=== PATIENT | male | born 1960 | race Caucasian/White ===

== ENCOUNTER 2016-09-18 08:45 | Outpatient (CLI) | payer MEDICARE | END 2016-09-18 08:46 | disposition home or self-care (01) | DX: E11.621 Type 2 diabetes mellitus with foot ulcer (principal); I10 Essential (primary) hypertension; M86.9 Osteomyelitis, unspecified ==

== ENCOUNTER 2016-11-24 18:40 | Inpatient (IN) | payer MEDICARE ==
[2016-11-24] MEDS ORDERED: ONDANSETRON 4 MG/2 ML VIAL IVP STA (19:06)
[2016-11-24] MEDS ORDERED: SODIUM CHLORIDE 0.9% 1,000 ML IV ONE ×2 (19:06)
[2016-11-24] MEDS ORDERED: ONDANSETRON 4 MG/2 ML VIAL ONE (19:23)
[2016-11-24] MEDS ORDERED: PIPERACILLIN/TAZOBACTAM 4.5 GM in SODIUM CHLORIDE 0.9% MINIBAG 100 ML IV STA (20:12)
[2016-11-24] MEDS ORDERED: VANCOMYCIN INJ 2 GM in SODIUM CHLORIDE 0.9% 500 ML IV STA (20:12)
[2016-11-24] MEDS ORDERED: ACETAMINOPHEN 325 MG TABLET PO STA (20:21)
[2016-11-24] MEDS ORDERED: ACETAMINOPHEN 325 MG TABLET PO ONE (20:26)
[2016-11-24] MEDS ORDERED: oxyCODONE 5 MG TABLET PO PRN ×2 (20:30)
[2016-11-24] MEDS ORDERED: ACETAMINOPHEN 325 MG TABLET PO PRN (20:30)
[2016-11-24] MEDS ORDERED: SODIUM CHLORIDE FLUSH 0.9% 10 ML SYRINGE IVP PRN (20:30)
[2016-11-24] MEDS ORDERED: ONDANSETRON 4 MG/2 ML VIAL IVP PRN (20:30)
[2016-11-24] MEDS ORDERED: PROCHLORPERAZINE 10 MG/2 ML VIAL IVP PRN (20:30)
[2016-11-24] MEDS ORDERED: VANCOMYCIN 1 GM VIAL ONE (20:56)
[2016-11-24] MEDS ORDERED: SODIUM CHLORIDE 0.9% 1,000 ML IV SCH (21:00)
[2016-11-24] MEDS: SODIUM CHLORIDE FLUSH 0.9% 10 ML SYRINGE IVP SCH (21:57)
[2016-11-24] MEDS: INSULIN GLARGINE 300 UNIT/3 ML PEN SUBQ SCH (22:19)
[2016-11-24] MEDS: INSULIN ASPART 300 UNIT/3 ML PEN SUBQ SCH (22:20)
[2016-11-24] MEDS: NS W/20 MEQ KCL 1,000 ML IV SCH (23:54)
[2016-11-25] MEDS ORDERED: PIPERACILLIN/TAZOBACTAM 3.375 GM in SODIUM CHLORIDE 0.9% MINIBAG 100 ML IV SCH (03:00)
[2016-11-25] MEDS: PANTOPRAZOLE 40 MG TABLET PO SCH (06:06)
[2016-11-25] MEDS: SODIUM CHLORIDE FLUSH 0.9% 10 ML SYRINGE IVP SCH ×3 (06:07→21:28)
[2016-11-25] MEDS: PIPERACILLIN/TAZOBACTAM 3.375 GM in SODIUM CHLORIDE 0.9% MINIBAG 100 ML IV SCH ×3 (08:18→20:48)
[2016-11-25] MEDS: INSULIN ASPART 300 UNIT/3 ML PEN SUBQ SCH ×7 (08:18→21:24)
[2016-11-25] MEDS: INSULIN GLARGINE 300 UNIT/3 ML PEN SUBQ SCH ×2 (08:21→21:24)
[2016-11-25] MEDS ORDERED: VANCOMYCIN PER PHARMACY 1 GM in SODIUM CHLORIDE 0.9% 250 ML IV SCH (09:00)
[2016-11-25] MEDS: NS W/20 MEQ KCL 1,000 ML IV SCH ×3 (09:21→23:32)
[2016-11-25] MEDS: VANCOMYCIN INJ 1 GM, VANCOMYCIN INJ 250 MG in SODIUM CHLORIDE 0.9% 250 ML IV SCH ×2 (09:21→21:25)
[2016-11-25] MEDS: ENOXAPARIN 40 MG/0.4 ML SYRINGE SUBQ SCH (09:21)
[2016-11-25] MEDS: ASPIRIN EC 81 MG TABLET PO SCH (09:22)
[2016-11-25] MEDS: POLYETHYLENE GLYCOL 3350 17 GM PACKET PO SCH (09:22)
[2016-11-25] MEDS ORDERED: GADOBUTROL 7.5 MMOL/7.5 ML VIAL IVP ONE (17:47)
[2016-11-26] MEDS ORDERED: BENZOCAINE/MENTHOL LOZENGE MM PRN (00:29)
[2016-11-26] MEDS: PIPERACILLIN/TAZOBACTAM 3.375 GM in SODIUM CHLORIDE 0.9% MINIBAG 100 ML IV SCH ×4 (01:06→19:15)
[2016-11-26] MEDS: SODIUM CHLORIDE FLUSH 0.9% 10 ML SYRINGE IVP SCH ×3 (06:49→20:23)
[2016-11-26] MEDS: PANTOPRAZOLE 40 MG TABLET PO SCH (06:53)
[2016-11-26] MEDS: NS W/20 MEQ KCL 1,000 ML IV SCH (06:53)
[2016-11-26] MEDS: ASPIRIN EC 81 MG TABLET PO SCH (08:11)
[2016-11-26] MEDS: POLYETHYLENE GLYCOL 3350 17 GM PACKET PO SCH (08:11)
[2016-11-26] MEDS: ENOXAPARIN 40 MG/0.4 ML SYRINGE SUBQ SCH (08:11)
[2016-11-26] MEDS: INSULIN GLARGINE 300 UNIT/3 ML PEN SUBQ SCH ×2 (08:12→20:32)
[2016-11-26] MEDS: INSULIN ASPART 300 UNIT/3 ML PEN SUBQ SCH ×7 (08:13→20:32)
[2016-11-26] MEDS: VANCOMYCIN INJ 1 GM, VANCOMYCIN INJ 250 MG in SODIUM CHLORIDE 0.9% 250 ML IV SCH ×2 (10:31→20:23)
[2016-11-27] MEDS: PIPERACILLIN/TAZOBACTAM 3.375 GM in SODIUM CHLORIDE 0.9% MINIBAG 100 ML IV SCH ×2 (02:15→08:33)
[2016-11-27] MEDS: SODIUM CHLORIDE FLUSH 0.9% 10 ML SYRINGE IVP SCH (06:03)
[2016-11-27] MEDS: PANTOPRAZOLE 40 MG TABLET PO SCH (06:03)
[2016-11-27] MEDS: INSULIN ASPART 300 UNIT/3 ML PEN SUBQ SCH ×2 (07:29→08:25)
[2016-11-27] MEDS: INSULIN GLARGINE 300 UNIT/3 ML PEN SUBQ SCH (08:28)
[2016-11-27] MEDS: POLYETHYLENE GLYCOL 3350 17 GM PACKET PO SCH (08:39)
[2016-11-27] MEDS: ENOXAPARIN 40 MG/0.4 ML SYRINGE SUBQ SCH (08:44)
[2016-11-27] MEDS: ASPIRIN EC 81 MG TABLET PO SCH (08:44)
[2016-11-27] MEDS: VANCOMYCIN INJ 1 GM, VANCOMYCIN INJ 250 MG in SODIUM CHLORIDE 0.9% 250 ML IV SCH (09:30)
== END 2016-11-27 10:44 | disposition home or self-care (01) | DRG 603 ==
DX: L03.115 Cellulitis of right lower limb (principal); N17.9 Acute kidney failure, unspecified; L97.419 Non-pressure chronic ulcer of right heel and midfoot with unspecified severity; E87.1 Hypo-osmolality and hyponatremia; S92.351A Displaced fracture of fifth metatarsal bone, right foot, initial encounter for closed fracture; X58.XXXA Exposure to other specified factors, initial encounter; E11.618 Type 2 diabetes mellitus with other diabetic arthropathy; E11.65 Type 2 diabetes mellitus with hyperglycemia; E11.42 Type 2 diabetes mellitus with diabetic polyneuropathy; E11.621 Type 2 diabetes mellitus with foot ulcer; L98.493 Non-pressure chronic ulcer of skin of other sites with necrosis of muscle; E86.1 Hypovolemia; I10 Essential (primary) hypertension; E78.5 Hyperlipidemia, unspecified; Z79.4 Long term (current) use of insulin; Z79.82 Long term (current) use of aspirin; Z79.2 Long term (current) use of antibiotics; Z89.422 Acquired absence of other left toe(s)

== ENCOUNTER 2016-11-27 17:19 | Emergency (ER) | payer MEDICARE ==
[2016-11-27] MEDS ORDERED: VANCOMYCIN INJ 1.5 GM in SODIUM CHLORIDE 0.9% 500 ML IV STA (17:54)
== END 2016-11-27 20:33 | disposition home or self-care (01) ==
DX: E11.621 Type 2 diabetes mellitus with foot ulcer (principal); L97.419 Non-pressure chronic ulcer of right heel and midfoot with unspecified severity; Z79.4 Long term (current) use of insulin; I10 Essential (primary) hypertension; Z79.82 Long term (current) use of aspirin
CPT/HCPCS: 80048; 83605; 85025; 87040; 87070; 87205; 96365; 96366; 99284; J3370

== ENCOUNTER 2016-12-18 07:45 | Outpatient (CLI) | payer MEDICARE | END 2016-12-18 07:46 | disposition home or self-care (01) | DX: N18.3 Chronic kidney disease, stage 3 (moderate) (principal) ==

== ENCOUNTER 2017-01-16 07:52 | Outpatient (CLI) | payer MEDICARE | END 2017-01-16 07:53 | DX: E78.9 Disorder of lipoprotein metabolism, unspecified (principal) ==

== ENCOUNTER 2017-05-08 17:30 | Outpatient (CLI) | payer MEDICARE ==
[2017-05-08 13:34] LABS: ALBUMIN/GLOBULIN RATIO 1.4 (1.0-2.2); BILIRUBIN,TOTAL 0.4 mg/dL (0.2-1.0); CALCIUM 8.7 mg/dL (8.5-10.3); CREATININE 1.2 mg/dL (0.6-1.2); POTASSIUM 4.6 mmol/L (3.5-5.0); TOTAL PROTEIN 7.5 g/dL (6.7-8.2)
[2017-05-08 14:08] LABS: HEMOGLOBIN A1C 1.65 g/dL
== END 2017-05-08 17:31 | disposition home or self-care (01) ==
LOC: LAB.WCP 17:30
PROVIDERS: ATTEND Family Medicine
DX: E78.5 Hyperlipidemia, unspecified (principal); N18.3 Chronic kidney disease, stage 3 (moderate)
CPT/HCPCS: 36415; 80053; 83036

== ENCOUNTER 2017-07-30 08:00 | Outpatient (CLI) | payer MEDICARE ==
[2017-07-30 13:28] LABS: ALBUMIN/GLOBULIN RATIO 1.2 (1.0-2.2); BILIRUBIN,TOTAL 0.4 mg/dL (0.2-1.0); CALCIUM 9.5 mg/dL (8.5-10.3); CREATININE 1.2 mg/dL (0.6-1.2); POTASSIUM 3.9 mmol/L (3.5-5.0); TOTAL PROTEIN 7.8 g/dL (6.7-8.2)
[2017-07-30 14:10] LABS: HEMOGLOBIN A1C 1.89 g/dL
== END 2017-07-30 08:01 | disposition home or self-care (01) ==
LOC: LAB.WCP 08:00
PROVIDERS: ATTEND Family Medicine
DX: N18.3 Chronic kidney disease, stage 3 (moderate) (principal); E11.621 Type 2 diabetes mellitus with foot ulcer
CPT/HCPCS: 36415; 80053; 83036

== ENCOUNTER 2017-12-29 15:21 | Outpatient (CLI) | payer MEDICARE ==
--- NOTE | 2017-12-31 15:45 | Ultrasound Report ---
RIGHT LEG ARTERIAL DUPLEX: 12/29/2017 CLINICAL INDICATION: Diabetes, right foot ulcer. TECHNIQUE: Real-time sonographic vascular imaging was performed by the data entry analyst through the right lower extremity utilizing both color-flow and Doppler spectral analysis. Multiple quality assurance representative static images were saved for review. RIGHT SIDE SITE [facility] WAVEFORM STEN GOVERNMENT AFFAIRS FELLOW 138 biphasic [] PSFA 111 triphasic [] MSFA 116 triphasic [] DSFA 94 triphasic [] PFA 62 biphasic [] POP 102 triphasic [] MARGARITA 96 monophasic [] SERVICE RIG OPERATOR 129 triphasic [] PER 85 triphasic [] DPA 99 monophasic [] FINDINGS: Waveforms in the right leg are variable. There is no evidence of a focal velocity increase to suggest a hemodynamically significant arterial stenosis. IMPRESSION: NO EVIDENCE OF A FOCAL HEMODYNAMICALLY SIGNIFICANT ARTERIAL STENOSIS IN THE RIGHT LEG. TD: 12/30/2017 09:44 DOMINIQUE
== END 2017-12-29 15:22 | disposition home or self-care (01) ==
LOC: DI 15:21
PROVIDERS: ATTEND Orthopaedic Surgery
DX: E11.621 Type 2 diabetes mellitus with foot ulcer (principal)

== ENCOUNTER 2018-06-30 09:50 | Day surgery (SDC) | payer MEDICARE ==
[~2018-06-30 09:50] MED LIST: BUPIVACAINE 0.25%-EPI 1:200000 PF 30 ML VIAL ONE
[2018-06-30] MEDS ORDERED: ceFAZolin 2 GM/50 ML 2 GM/50 ML BAG IV ONE (09:56)
[2018-06-30] MEDS ORDERED: LACTATED RINGERS 1,000 ML IV ONE (10:27)
[2018-06-30] MEDS ORDERED: INSULIN REGULAR HUMAN 100 UNIT/1 ML 10 ML MDV ONE (10:42)
--- NOTE | 2018-06-30 10:44 | ANESTHESIA ---
Pre-Anesthesia VS, & Labs - Diagnosis Right Foot Diabetic foot ulcer - Procedure Incision and debridement right diabetic foot ulcer Vital Signs: Temp Pulse Resp BP Pulse Ox 36 C L 87 16 151/90 H 97 06/30/18 10:00 06/30/18 10:00 06/30/18 10:00 06/30/18 10:00 06/30/18 10:00 Height 6 ft 1 in Weight (kg) 87.7 kg Body Mass Index 25.7 - NPO >8 hours - Lab Results Current Lab Results: Laboratory Tests 06/30/18 10:17: POC Whole Bld Glucose 341 H Lab results reviewed: Yes Home Medications and Allergies Aspirin [Ecotrin] 81 mg PO DAILY 01/05/15 Insulin Lispro [Humalog] 20 unit SQ TIDWM MDD 30 units per injection 01/05/15 Empagliflozin [Jardiance] 12.5 mg PO DAILY 08/26/16 Insulin Glargine [Lantus] 70 units SUBQ BID 11/24/16 Atorvastatin [Lipitor] 10 mg PO DAILY 02/03/17 Allergies/Adverse Reactions: Allergies Allergy/AdvReac Type Severity Reaction Status Date / Time No Known Drug Allergies Allergy Verified 06/29/18 13:00 Anes History & Medical History - Anesthetic History Anesthesia Complications: reports: No previous complications Family history of Anesthesia Complications: Denies Family history of Malignant Hyperthermia: Denies - Medical History Cardiovascular: reports: Hypertension, High cholesterol Pulmonary: reports: None Gastrointestinal: reports: None Urinary: reports: Renal insuffiency Neuro: reports: Peripheral neuropathy Musculoskeletal: reports: None Endocrine/Autoimmune: reports: Type 2 diabetes (For 30 years. Blood sugar this am 341. Treated with 10 units regular insulin SQ.) Blood Disorders: reports: None Skin: reports: None Smoking Status: Former smoker (Quit 15 years ago. 1pk/day for 25yrs) Psychosocial: reports: Alcohol (Quit 10 years ago.) - Surgical History Eyes Ears Nose Throat (EENT): Cataracts, Detached retina repair Orthopedic: Amputation Exam General: Alert, Oriented x3, Cooperative, No acute distress Dental: Dentures full Upper Mouth Openin Fingerbreadth Neck Mobility: Normal Mallampati classification: I Thyromental Distance: 4-6 cm Respiratory: Lungs clear, Normal breath sounds, No respiratory distress, No accessory muscle use Cardiovascular: Regular rate, Normal S1, Normal S2, No murmurs Mental/Cognitive Status: Alert/Oriented X3, Normal for patient Cognitive Status: Within normal limits Plan Anesthesia Type: General, MAC (Mac vs General. Patient reports he has no feeling in right foot.) Consent for Procedure(s) Verified and Reviewed: Yes Code Status: Attempt Resuscitation ASA classification: 3-Severe systemic disease Is this case an emergency?: No
[2018-06-30] MEDS ORDERED: PROPOFOL 200 MG/20 ML VIAL IVP ONE (12:06)
[2018-06-30] MEDS ORDERED: ONDANSETRON 4 MG/2 ML VIAL IVP ONE (12:06)
[2018-06-30] MEDS ORDERED: LIDOCAINE-MPF 2% 5 ML VIAL IM ONE (12:06)
[2018-06-30] MEDS ORDERED: BUPIVACAINE 0.25%-EPI 1:200000 PF 30 ML VIAL SUBQ ONE (12:08)
[2018-06-30 13:43] VITALS: BP 159/87
--- NOTE | 2018-07-01 10:50 | OPERATIVE REPORT ---
DATE OF SERVICE: 06/30/2018 Physician: Antonio Souza MD PREOPERATIVE DIAGNOSES: Chronic diabetic foot ulcer, right foot. OPERATIVE PROCEDURE: Debridement of right foot diabetic ulcer with right fifth metatarsal base excis ion and primary wound closure. SURGEON: Antonio Souza MD ANESTHESIA: General. INDICATIONS FOR SURGERY: Sky is a 58-year-old male diabetic with a greater than 1-year history o f ulceration at the base of his right 5th metatarsal in an area where he has prominence of the bone a nd direct pressure under the tissues. In spite of aggressive wound care this has not advanced toward s healing, but also has not become grossly infected or invasive or cellulitic. The recommendation no w is for decompression of this area and in an attempt to heal the debrided wound. DESCRIPTION OF OPERATIVE PROCEDURE: The patient was taken to the operating room. He was given a gen eral anesthetic. A tourniquet was placed on his thigh and his foot and leg were sterilely prepped an d draped in standard fashion. Tourniquet was inflated to 300 mmHg. Surgical timeout was held. The patient's wound was debrided around its margins and the base was carefully debrided sharply, extendin g down to and reaching the base of the fifth metatarsal. There was no evidence of bone involvement o f infection or loss of bone and in fact the bone was extremely hard as the patient had been weightbea ring on this area. The thorough debridement was extended with longitudinal incisions to create a fla p from the dorsal lateral aspect of the foot that advanced to the plantar aspect and would close the wound in the end. The metatarsal base was exposed and excised, utilizing a small oscillating saw, a rongeur, and osteotomes and the cuboid which was left behind was carefully debrided of any prominence on its lateral aspect, so there would not be a new transfer lesion overlying the cuboid. The depth of the incision was completely healthy, clean, viable tissue and at the end the tourniquet was deflat ed and there was bleeding of tissue. The wound was irrigated thoroughly. The proximal flap was adva nced with deep retention of 2-0 nylon sutures placed along the incision to close this wound without a ny excessive tension. Additional 3-0 nylon sutures were placed in between the larger retention sutur es. A silver containing dressing was applied to the wound followed by a well-padded posterior leg sp lint. The patient was taken to recovery room in stable condition. ESTIMATED BLOOD LOSS: Minimal. COMPLICATIONS: None. COUNTS: Sponge and needle counts correct. TD: 06/30/2018 14:40
== END 2018-06-30 09:51 | disposition home or self-care (01) ==
LOC: SDS 09:50
PROVIDERS: ATTEND Orthopaedic Surgery
PROC: 0QBN0ZZ Excision of Right Metatarsal, Open Approach (ICD-10-PCS; principal; 2018-06-30 11:00)
DX: L89.894 Pressure ulcer of other site, stage 4 (principal); E11.42 Type 2 diabetes mellitus with diabetic polyneuropathy; I10 Essential (primary) hypertension; Z87.891 Personal history of nicotine dependence; Z89.432 Acquired absence of left foot; Z79.4 Long term (current) use of insulin; Z79.899 Other long term (current) drug therapy
CPT/HCPCS: 28140; 87070; 87205; J0690; J1815; J7120

== ENCOUNTER 2018-07-06 09:05 | Inpatient (IN) | payer MEDICARE ==
[2018-07-06] MEDS ORDERED: SODIUM CHLORIDE FLUSH 0.9% 10 ML SYRINGE ONE (10:22)
[2018-07-06] MEDS ORDERED: HYDROmorphone 0.5 MG/0.5 ML SYRINGE IVP PRN (10:57)
[2018-07-06] MEDS ORDERED: ZOLPIDEM 5 MG TABLET PO PRN (10:57)
[2018-07-06] MEDS ORDERED: IBUPROFEN 600 MG TABLET PO PRN (10:57)
[2018-07-06] MEDS ORDERED: PROCHLORPERAZINE 10 MG/2 ML VIAL IVP PRN (10:57)
[2018-07-06 12:00] LABS: BASOPHILS # (AUTO) 0.1 10^3/uL (0.0-0.1); BASOPHILS % (AUTO) 1.2 %; HGB - HEMOGLOBIN 14.1 g/dL (14.0-18.0); LYMPHOCYTES # (AUTO) 0.1 10^3/uL (1.5-3.5); LYMPHOCYTES % (AUTO) 0.8 %; MEAN CORPUSCULAR HEMOGLOBIN 28.8 pg (27.0-31.0); MEAN CORPUSCULAR HGB CONC 34.2 g/dL (32.0-36.0); MEAN CORPUSCULAR VOLUME 84.2 fL (80.0-94.0); MEAN PLATELET VOLUME 6.9 fL (7.4-11.4); MONOCYTES # (AUTO) 0.4 10^3/uL (0.0-1.0); MONOCYTES % (AUTO) 3.6 %; NEUTROPHILS # (AUTO) 9.4 10^3/uL (1.5-6.6); NEUTROPHILS % (AUTO) 94.4 %; PLT - PLATELET COUNT 248 10^3/uL (130-450); RED BLOOD COUNT 4.88 10^6/uL (4.70-6.10); RED CELL DISTRIBUTION WIDTH 14.2 % (12.0-15.0)
[2018-07-06 12:07] LABS: INR 1.4 (0.8-1.2); PT - PROTHROMBIN TIME 15.2 secs (9.9-12.6)
[2018-07-06 12:14] LABS: ALBUMIN 3.4 g/dL (3.2-5.5); ALBUMIN/GLOBULIN RATIO 0.8 (1.0-2.2); BILIRUBIN,TOTAL 1.6 mg/dL (0.2-1.0); CALCIUM 8.7 mg/dL (8.5-10.3); CRP HIGH SENSITIVITY 307.7 mg/L; MAGNESIUM 1.9 mg/dL (1.7-2.8); TOTAL PROTEIN 7.7 g/dL (6.7-8.2)
[2018-07-06 12:27] LABS: HB2 TOTAL 15.3 g/dL; HEMOGLOBIN A1C 1.97 g/dL; HEMOGLOBIN A1C % 13.9 % (4.6-6.2)
[2018-07-06] MEDS: INSULIN ASPART 300 UNIT/3 ML PEN SUBQ SCH ×3 (12:39→20:45)
[2018-07-06] MEDS: ACETAMINOPHEN 325 MG TABLET PO PRN (12:43)
[2018-07-06 12:44] LABS: VBG PH 7.303 (7.31-7.41); VBG PO2 51.7 mmHg (25-47); VBG TOTAL CO2 17.5 mmol/L (24-29)
[2018-07-06 12:45] LABS: VBG BASE EXCESS -8.8 mmol/L (-2 - +2)
[2018-07-06 13:24] LABS: BILIRUBIN,URINE NEGATIVE (NEGATIVE); GLUCOSE, URINE (UA) >=1000 mg/dL (NEGATIVE); KETONES,URINE (UA) 40 mg/dL (NEGATIVE); LEUKOCYTE ESTERASE, URINE NEGATIVE (NEGATIVE); NITRITE,URINE NEGATIVE (NEGATIVE); OCCULT BLOOD,URINE SMALL (NEGATIVE); PH,URINE 5.5 PH (5.0-7.5); PROTEIN,URINE 30 mg/dL (NEGATIVE); UROBILINOGEN,URINE 0.2 (NORMAL) E.U./dL (NORMAL)
[2018-07-06 13:27] LABS: CLARITY,URINE CLEAR (CLEAR)
[2018-07-06 13:52] LABS: RBC,URINE 0-5 /HPF (0-5)
[2018-07-06 13:53] LABS: BACTERIA,URINE Rare /HPF (None Seen); SQUAMOUS EPITHELIAL CELL,UR RARE Squamous (<= Few)
--- NOTE | 2018-07-06 14:06 | XRAY Report ---
Reason: Tachy Procedure Date: 07/06/2018 Accession Number: [id number] / [id number] Procedure: XR - Chest 1 View X-Ray CPT Code: 70889 FULL RESULT: EXAM: CHEST RADIOGRAPHY EXAM DATE: 07/06/2018 12:19 PM. CLINICAL HISTORY: Tachycardia COMPARISON: None. TECHNIQUE: 1 view. FINDINGS: Lungs/Pleura: No focal opacities evident. No pleural effusion. No pneumothorax. Mediastinum: Within exam limitations, the cardiomediastinal contour is normal. Other: None. IMPRESSION: Negative single view chest. RADIA
--- NOTE | 2018-07-06 14:17 | XRAY Report ---
Reason: foot diabetic ulcer Procedure Date: 07/06/2018 Accession Number: [id number] / [id number] Procedure: XR - Foot 2 View RT CPT Code: FULL RESULT: EXAM: RIGHT FOOT RADIOGRAPHY EXAM DATE: 07/06/2018 12:21 PM. CLINICAL HISTORY: Foot diabetic ulcer. Follow-up surgery COMPARISON: 06/15/2018.. TECHNIQUE: 2 views. FINDINGS: Detail obscured by splint material. Bones: Interval resection of the proximal right fifth metatarsal. Periosteal reaction/new bone formation along the proximal aspect of the fourth and fifth metatarsals as before. Joints: Scattered degenerative changes stable Soft Tissues: Subcutaneous air consistent with recent surgery. IMPRESSION: New postsurgical changes right fifth metatarsal base. Otherwise stable compared with 06/15/2018. Detail obscured by splint material. RADIA
[2018-07-06] MEDS: SODIUM CHLORIDE 0.9% 1,000 ML IV SCH ×2 (14:31→21:12)
[2018-07-06] MEDS: INSULIN REGULAR HUMAN 100 UNIT in SODIUM CHLORIDE 0.9% 100ML 99 ML IV SCH (14:31)
[2018-07-06 15:05] LABS: CALCIUM 8.4 mg/dL (8.5-10.3); CREATININE 1.8 mg/dL (0.6-1.2)
[2018-07-06 15:50] LABS: KETONES, SERUM (ACETEST) SMALL (NEGATIVE)
[2018-07-06 15:53] LABS: BUN - BLOOD UREA NITROGEN 33 mg/dL (6-20); CALCIUM 8.4 mg/dL (8.5-10.3); CARBON DIOXIDE - CO2 19 mmol/L (21-32); CHLORIDE 91 mmol/L (101-111); CREATININE 1.9 mg/dL (0.6-1.2); GFR - MDRD 36 (>89); GLUCOSE 485 mg/dL (70-100); SODIUM 125 mmol/L (135-145)
[2018-07-06 18:05] LABS: VBG PH 7.433 (7.31-7.41); VBG PO2 78.7 mmHg (25-47); VBG TOTAL CO2 21.2 mmol/L (24-29)
[2018-07-06 18:11] LABS: BUN - BLOOD UREA NITROGEN 33 mg/dL (6-20); CALCIUM 8.5 mg/dL (8.5-10.3); CARBON DIOXIDE - CO2 23 mmol/L (21-32); CHLORIDE 95 mmol/L (101-111); CREATININE 1.7 mg/dL (0.6-1.2); GFR - MDRD 41 (>89); GLUCOSE 359 mg/dL (70-100); MAGNESIUM 2.3 mg/dL (1.7-2.8); SODIUM 128 mmol/L (135-145)
[2018-07-06 18:18] LABS: KETONES, SERUM (ACETEST) SMALL (NEGATIVE)
[2018-07-06] MEDS: SODIUM CHLORIDE FLUSH 0.9% 10 ML SYRINGE IVP SCH (18:24)
[2018-07-06] MEDS ORDERED: VANCOMYCIN PER PHARMACY 100 GM in SODIUM CHLORIDE 0.9% 250 ML IV SCH (19:00)
[2018-07-06] MEDS: MEROPENEM 1 GM in SODIUM CHLORIDE 0.9% MINIBAG 100 ML IV SCH (19:13)
[2018-07-06] MEDS ORDERED: VANCOMYCIN INJ 2.25 GM in SODIUM CHLORIDE 0.9% 500 ML IV SCH (20:00)
[2018-07-06] MEDS: INSULIN GLARGINE 300 UNIT/3 ML PEN SUBQ SCH (20:36)
[2018-07-06] MEDS: FAMOTIDINE 20 MG TABLET PO SCH (20:37)
[2018-07-06] MEDS: HEPARIN 5,000 UNIT/ML VIAL SUBQ SCH (20:37)
[2018-07-07] MEDS: SODIUM CHLORIDE FLUSH 0.9% 10 ML SYRINGE IVP SCH ×3 (03:39→17:14)
[2018-07-07] MEDS: INSULIN REGULAR HUMAN 100 UNIT in SODIUM CHLORIDE 0.9% 100ML 99 ML IV SCH (03:39)
[2018-07-07] MEDS: MEROPENEM 1 GM in SODIUM CHLORIDE 0.9% MINIBAG 100 ML IV SCH ×3 (03:39→18:07)
[2018-07-07] MEDS: ACETAMINOPHEN 325 MG TABLET PO PRN ×2 (03:46→15:53)
[2018-07-07] MEDS: SODIUM CHLORIDE 0.9% 1,000 ML IV SCH ×3 (04:26→13:50)
[2018-07-07 05:50] LABS: BASOPHILS % (AUTO) 0.6 %; EOSINOPHILS % (AUTO) 0.3 %; HGB - HEMOGLOBIN 11.2 g/dL (14.0-18.0); LYMPHOCYTES # (AUTO) 0.2 10^3/uL (1.5-3.5); LYMPHOCYTES % (AUTO) 4.9 %; MEAN CORPUSCULAR HEMOGLOBIN 28.6 pg (27.0-31.0); MEAN CORPUSCULAR HGB CONC 34.6 g/dL (32.0-36.0); MEAN CORPUSCULAR VOLUME 82.7 fL (80.0-94.0); MEAN PLATELET VOLUME 6.9 fL (7.4-11.4); MONOCYTES # (AUTO) 0.5 10^3/uL (0.0-1.0); MONOCYTES % (AUTO) 10.8 %; NEUTROPHILS # (AUTO) 4.1 10^3/uL (1.5-6.6); NEUTROPHILS % (AUTO) 83.4 %; PLT - PLATELET COUNT 208 10^3/uL (130-450); RED BLOOD COUNT 3.92 10^6/uL (4.70-6.10); RED CELL DISTRIBUTION WIDTH 14.6 % (12.0-15.0)
[2018-07-07 05:56] LABS: CALCIUM 7.9 mg/dL (8.5-10.3); CREATININE 1.3 mg/dL (0.6-1.2); MAGNESIUM 1.9 mg/dL (1.7-2.8)
[2018-07-07] MEDS: INSULIN ASPART 300 UNIT/3 ML PEN SUBQ SCH ×4 (08:22→21:03)
[2018-07-07] MEDS: FAMOTIDINE 20 MG TABLET PO SCH (08:23)
[2018-07-07] MEDS: HEPARIN 5,000 UNIT/ML VIAL SUBQ SCH ×2 (08:24→21:03)
[2018-07-07] MEDS: INSULIN GLARGINE 300 UNIT/3 ML PEN SUBQ SCH ×2 (08:25→21:03)
[2018-07-07] MEDS: POLYETHYLENE GLYCOL 3350 17 GM PACKET PO SCH (08:25)
--- NOTE | 2018-07-07 09:34 | HISTORY & PHYSICAL EXAMINATION ---
DATE OF SERVICE: 07/06/2018 Physician: Margto Martínez MD HISTORY OF PRESENT ILLNESS: This is a 58-year-old white male with a history of diabetes on insulin, prior left foot cellulitis and toe amputations, recent right foot infection for which he was being seen at the orthopedic office of Dr. Souza. There was recent elective surgery on the right foot. In his office, the patient had a fever and was tachycardic and the patient was direct admitted for management of a presumed diabetic foot infection and diabetes. His admission lab work shows that he is in DKA. He has never had DKA before. The patient states he has neuropathy and cannot feel any pain or any sensation whatsoever in both feet and the legs nearly all the way to his inguinal area. 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 There has been no trauma to the right foot that he can remember. The patient is compliant with his diabetic management. ALLERGIES: NO KNOWN ALLERGIES. MEDICATIONS 1. Jardiance 12.5 mg daily. 2. Baby aspirin daily. 3. Lantus insulin 70 units subcutaneous b.i.d. 4. Humalog Lispro insulin 20 units t.i.d. with meals. 5. Trimethoprim sulfa which he is on continuously for over a year to suppress infection. 7. Lipitor 10 mg q.p.m. SOCIAL HISTORY: He is a nonsmoker who quit 10 years ago. He drinks rare alcohol, uses no illicit drugs. The patient lives with his adult daughter. He is for many years. 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 FAMILY HISTORY: Diabetes runs in the family, no other inherited diseases. REVIEW OF SYSTEMS: A comprehensive review of systems was performed and the pertinent positives are in the HPI. The rest are negative. PHYSICAL EXAMINATION GENERAL: White male who is in no distress. He is in bed. VITAL SIGNS: Blood pressure 142/56, heart rate 144 in sinus tachycardia. Temperature is 38, room air saturation 100%. HEENT: Unremarkable. The oral mucosa is slightly dry. NECK: Without JVD. CHEST: Clear. HEART: Heart sounds are normal. ABDOMEN: Soft, nontender. No organomegaly. Normal bowel sounds. EXTREMITIES: The left foot had several toes amputated, all the skin appears pink and healthy. The right foot is bandaged from the toes up to the heel. NEUROLOGIC: Grossly intact. LABORATORY/DATA Sodium 125, potassium 6.1, anion gap 20, BUN 33, creatinine 2.0, glucose 551. Lactic acid 2.7, bilirubin 1.6. Normal AST and ALT, alkaline phosphatase 157. Troponin not detectable. Venous blood gas shows a pH of 7.30. White blood count 10 with a left shift, hemoglobin 14 with MCV of 84; platelet count 248,000. INR 1.4. Urinalysis showed high protein, very high glucose, high ketones, small occult blood, rare white blood cells, rare bacteria. Serum ketones were present at small. Chest X-ray: unremarkable. EKG: Sinus tachycardia at a rate of [address] scooping depressions and T-wave flattening. There is no old EKG available for comparison. Foot x-ray of the right foot: subcutaneous air consistent with recent surgery and post-surgical changes, but stable compared to 06/15/2018. IMPRESSION/DIAGNOSES 1. Diabetic ketoacidosis. 2. Insulin-dependent diabetes, uncontrolled. 3. Diabetic foot infection. 4. Tachycardia. This is probably from volume depletion, infection, and diabetic ketoacidosis. 5. Abnormal EKG with ST and T-wave abnormalities, cannot rule out ischemia, and this patient's coronary risk factors include: male gender, ex-smoker, diabetes which is poorly controlled, and hyperlipidemia. 6. Diabetic neuropathy by his description. 7. Acute kidney injury. This is likely from volume depletion causing acute tubular necrosis. PLAN: Admit the patient to the ICU status on telemetry. Begin on DKA protocol including insulin drip, IV saline, frequent monitoring of his ketones, glucose level. Follow his anion gap and venous blood gas pH in several hours. Check an HbA1c. The patient may eat a diabetic diet. We will add a sliding scale insulin coverage and eventually return him back to his long-acting agents. Diabetic nutrition consult will be requested. Fully culture the patient. Repeat lactic acid level in 3 hours. Begin empiric IV antibiotics to cover Pseudomonas for a diabetic foot infection. We will use meropenem and vancomycin. Plan for an MRI of the right foot to rule out osteomyelitis. Obtain orthopedic surgical consult as the Orthopedist requested to be involved. Cycle troponins because of his abnormal EKG. If these are abnormal, consider coronary workup. Continue the daily baby aspirin dose. CODE STATUS: FULL CODE. DEEP VENOUS THROMBOSIS PROPHYLAXIS: Subcutaneous heparin. ATTESTATION: The patient is expected to be discharged or transferred to another facility within 96 hours: Yes. TD: 07/07/2018 08:56 MTDD
--- NOTE | 2018-07-07 11:16 | PROVIDER PROGRESS NOTE ---
Subjective - General Admit Date: 07/06/18 Procedure Date: 06/30/18 Post Op Days: 7 - Review of Systems Wound/Incisions: positive: Drainage General: positive: Malaise Musculoskeletal: positive: Joint pain, Joint swelling Objective - Patient Data Reviewed Vital Signs: Yes Vital Signs: Vital Signs x48h Temp Pulse Resp BP Pulse Ox 07/07/18 10:00 103 H 19 160/76 H 07/07/18 09:00 100 23 142/79 H 07/07/18 08:00 36.9 C 99 21 142/79 H 97 07/07/18 07:00 87 24 114/65 07/07/18 06:00 89 23 112/64 07/07/18 05:24 37.7 C H 07/07/18 05:00 100 26 H 122/64 07/07/18 03:59 38.1 C H 98 24 132/72 H 96 Weight: Weight 07/05/18 07/06/18 07/07/18 23:59 23:59 23:59 Weight (kg) 86 kg 88 kg Intake & Output: Intake and Output Totals x24h 07/05/18 07/06/18 07/07/18 23:59 23:59 23:59 Intake Total 3046.447 2570 Output Total 0 Balance 3046.447 2570 - Lab Results Lab Results: 07/07/18 05:15 07/07/18 05:15 Other Lab Results: Lab Results x24hrs 07/07/18 07/07/18 07/07/18 Range/Units 08:04 07:53 05:15 WBC 5.0 (4.8-10.8) x10^3/uL RBC 3.92 L (4.70-6.10) 10^6/uL Hgb 11.2 L (14.0-18.0) g/dL Hct 32.4 L (42.0-52.0) % MCV 82.7 (80.0-94.0) fL MCH 28.6 (27.0-31.0) pg MCHC 34.6 (32.0-36.0) g/dL RDW 14.6 (12.0-15.0) % Plt Count 208 (130-450) 10^3/uL MPV 6.9 L (7.4-11.4) fL Neut # (Auto) 4.1 (1.5-6.6) 10^3/uL Lymph # (Auto) 0.2 L (1.5-3.5) 10^3/uL [place] # (Auto) 0.5 (0.0-1.0) 10^3/uL Eos # (Auto) 0.0 (0.0-0.7) 10^3/uL Baso # (Auto) 0.0 (0.0-0.1) 10^3/uL Absolute Nucleated RBC 0.00 x10^3/uL Nucleated RBC % 0.0 /100WBC PT (9.9-12.6) secs INR (0.8-1.2) VBG pH (7.31-7.41) VBG pCO2 (41-51) mmHg VBG pO2 (25-47) mmHg VBG HCO3 (23-28) mmol/L VBG Total CO2 (24-29) mmol/L VBG O2 Saturation (60-80) % VBG Base Excess (-2 - +2) mmol/L Sodium (135-145) mmol/L Potassium (3.5-5.0) mmol/L Chloride (101-111) mmol/L Carbon Dioxide (21-32) mmol/L Anion Gap (6-13) BUN (6-20) mg/dL Creatinine (0.6-1.2) mg/dL Estimated GFR (MDRD) (>89) Glucose (70-100) mg/dL POC Whole Bld Glucose 194 H (70 - 100) mg/dL Glycated Hemoglobin (4.6-6.2) % Estim Average Glucose (70-100) Lactic Acid (0.5-2.2) mmol/L Calcium (8.5-10.3) mg/dL Magnesium (1.7-2.8) mg/dL Total Bilirubin (0.2-1.0) mg/dL AST (10-42) IU/L ALT (10-60) IU/L Alkaline Phosphatase (42-121) IU/L Troponin I < 0.04 (<0.49) ng/mL C-React Prot High Sens mg/L Total Protein (6.7-8.2) g/dL Albumin (3.2-5.5) g/dL Globulin (2.1-4.2) g/dL Albumin/Globulin Ratio (1.0-2.2) Urine Color Urine Clarity (CLEAR) Urine pH (5.0-7.5) PH Ur Specific [place] (1.002-1.030) Urine Protein (NEGATIVE) mg/dL Urine Glucose (UA) (NEGATIVE) mg/dL Urine Ketones (NEGATIVE) mg/dL Urine Occult Blood (NEGATIVE) Urine Nitrite (NEGATIVE) Urine Bilirubin (NEGATIVE) Urine Urobilinogen (NORMAL) E.U./dL Ur Leukocyte Esterase (NEGATIVE) Urine RBC (0-5) /HPF Urine WBC (0-3) /HPF Ur Squamous Epith Cells (<= Few) Urine Bacteria (None Seen) /HPF Urine Culture Comments Serum Ketones (NEGATIVE) 07/07/18 07/06/18 07/06/18 Range/Units 05:15 23:56 20:06 WBC (4.8-10.8) x10^3/uL RBC (4.70-6.10) 10^6/uL Hgb (14.0-18.0) g/dL Hct (42.0-52.0) % MCV (80.0-94.0) fL MCH (27.0-31.0) pg MCHC (32.0-36.0) g/dL RDW (12.0-15.0) % Plt Count (130-450) 10^3/uL MPV (7.4-11.4) fL Neut # (Auto) (1.5-6.6) 10^3/uL Lymph # (Auto) (1.5-3.5) 10^3/uL [place] # (Auto) (0.0-1.0) 10^3/uL Eos # (Auto) (0.0-0.7) 10^3/uL Baso # (Auto) (0.0-0.1) 10^3/uL Absolute Nucleated RBC x10^3/uL Nucleated RBC % /100WBC PT (9.9-12.6) secs INR (0.8-1.2) VBG pH (7.31-7.41) VBG pCO2 (41-51) mmHg VBG pO2 (25-47) mmHg VBG HCO3 (23-28) mmol/L VBG Total CO2 (24-29) mmol/L VBG O2 Saturation (60-80) % VBG Base Excess (-2 - +2) mmol/L Sodium 129 L (135-145) mmol/L Potassium 3.5 (3.5-5.0) mmol/L Chloride 99 L (101-111) mmol/L Carbon Dioxide 22 (21-32) mmol/L Anion Gap 8.0 (6-13) BUN 24 H (6-20) mg/dL Creatinine 1.3 H (0.6-1.2) mg/dL Estimated GFR (MDRD) 56 L (>89) Glucose 227 H (70-100) mg/dL POC Whole Bld Glucose 289 H 226 H (70 - 100) mg/dL Glycated Hemoglobin (4.6-6.2) % Estim Average Glucose (70-100) Lactic Acid (0.5-2.2) mmol/L Calcium 7.9 L (8.5-10.3) mg/dL Magnesium 1.9 (1.7-2.8) mg/dL Total Bilirubin (0.2-1.0) mg/dL AST (10-42) IU/L ALT (10-60) IU/L Alkaline Phosphatase (42-121) IU/L Troponin I (<0.49) ng/mL C-React Prot High Sens mg/L Total Protein (6.7-8.2) g/dL Albumin (3.2-5.5) g/dL Globulin (2.1-4.2) g/dL Albumin/Globulin Ratio (1.0-2.2) Urine Color Urine Clarity (CLEAR) Urine pH (5.0-7.5) PH Ur Specific [place] (1.002-1.030) Urine Protein (NEGATIVE) mg/dL Urine Glucose (UA) (NEGATIVE) mg/dL Urine Ketones (NEGATIVE) mg/dL Urine Occult Blood (NEGATIVE) Urine Nitrite (NEGATIVE) Urine Bilirubin (NEGATIVE) Urine Urobilinogen (NORMAL) E.U./dL Ur Leukocyte Esterase (NEGATIVE) Urine RBC (0-5) /HPF Urine WBC (0-3) /HPF Ur Squamous Epith Cells (<= Few) Urine Bacteria (None Seen) /HPF Urine Culture Comments Serum Ketones (NEGATIVE) 07/06/18 07/06/18 07/06/18 Range/Units 20:00 20:00 18:40 WBC (4.8-10.8) x10^3/uL RBC (4.70-6.10) 10^6/uL Hgb (14.0-18.0) g/dL Hct (42.0-52.0) % MCV (80.0-94.0) fL MCH (27.0-31.0) pg MCHC (32.0-36.0) g/dL RDW (12.0-15.0) % Plt Count (130-450) 10^3/uL MPV (7.4-11.4) fL Neut # (Auto) (1.5-6.6) 10^3/uL Lymph # (Auto) (1.5-3.5) 10^3/uL [place] # (Auto) (0.0-1.0) 10^3/uL Eos # (Auto) (0.0-0.7) 10^3/uL Baso # (Auto) (0.0-0.1) 10^3/uL Absolute Nucleated RBC x10^3/uL Nucleated RBC % /100WBC PT (9.9-12.6) secs INR (0.8-1.2) VBG pH (7.31-7.41) VBG pCO2 (41-51) mmHg VBG pO2 (25-47) mmHg VBG HCO3 (23-28) mmol/L VBG Total CO2 (24-29) mmol/L VBG O2 Saturation (60-80) % VBG Base Excess (-2 - +2) mmol/L Sodium (135-145) mmol/L Potassium (3.5-5.0) mmol/L Chloride (101-111) mmol/L Carbon Dioxide (21-32) mmol/L Anion Gap (6-13) BUN (6-20) mg/dL Creatinine (0.6-1.2) mg/dL Estimated GFR (MDRD) (>89) Glucose 319 H (70-100) mg/dL POC Whole Bld Glucose (70 - 100) mg/dL Glycated Hemoglobin (4.6-6.2) % Estim Average Glucose (70-100) Lactic Acid (0.5-2.2) mmol/L Calcium (8.5-10.3) mg/dL Magnesium (1.7-2.8) mg/dL Total Bilirubin (0.2-1.0) mg/dL AST (10-42) IU/L ALT (10-60) IU/L Alkaline Phosphatase (42-121) IU/L Troponin I < 0.04 (<0.49) ng/mL C-React Prot High Sens mg/L Total Protein (6.7-8.2) g/dL Albumin (3.2-5.5) g/dL Globulin (2.1-4.2) g/dL Albumin/Globulin Ratio (1.0-2.2) Urine Color Urine Clarity (CLEAR) Urine pH (5.0-7.5) PH Ur Specific [place] (1.002-1.030) Urine Protein (NEGATIVE) mg/dL Urine Glucose (UA) (NEGATIVE) mg/dL Urine Ketones (NEGATIVE) mg/dL Urine Occult Blood (NEGATIVE) Urine Nitrite (NEGATIVE) Urine Bilirubin (NEGATIVE) Urine Urobilinogen (NORMAL) E.U./dL Ur Leukocyte Esterase (NEGATIVE) Urine RBC (0-5) /HPF Urine WBC (0-3) /HPF Ur Squamous Epith Cells (<= Few) Urine Bacteria (None Seen) /HPF Urine Culture Comments Serum Ketones NEGATIVE (NEGATIVE) 07/06/18 07/06/18 07/06/18 Range/Units 17:55 17:55 16:50 WBC (4.8-10.8) x10^3/uL RBC (4.70-6.10) 10^6/uL Hgb (14.0-18.0) g/dL Hct (42.0-52.0) % MCV (80.0-94.0) fL MCH (27.0-31.0) pg MCHC (32.0-36.0) g/dL RDW (12.0-15.0) % Plt Count (130-450) 10^3/uL MPV (7.4-11.4) fL Neut # (Auto) (1.5-6.6) 10^3/uL Lymph # (Auto) (1.5-3.5) 10^3/uL [place] # (Auto) (0.0-1.0) 10^3/uL Eos # (Auto) (0.0-0.7) 10^3/uL Baso # (Auto) (0.0-0.1) 10^3/uL Absolute Nucleated RBC x10^3/uL Nucleated RBC % /100WBC PT (9.9-12.6) secs INR (0.8-1.2) VBG pH 7.433 H (7.31-7.41) VBG pCO2 31.0 L (41-51) mmHg VBG pO2 78.7 H (25-47) mmHg VBG HCO3 20.3 L (23-28) mmol/L VBG Total CO2 21.2 L (24-29) mmol/L VBG O2 Saturation 96.2 H (60-80) % VBG Base Excess -3.0 L (-2 - +2) mmol/L Sodium 128 L (135-145) mmol/L Potassium 4.1 (3.5-5.0) mmol/L Chloride 95 L (101-111) mmol/L Carbon Dioxide 23 (21-32) mmol/L Anion Gap 10.0 (6-13) BUN 33 H (6-20) mg/dL Creatinine 1.7 H (0.6-1.2) mg/dL Estimated GFR (MDRD) 41 L (>89) Glucose 359 H 409 H (70-100) mg/dL POC Whole Bld Glucose (70 - 100) mg/dL Glycated Hemoglobin (4.6-6.2) % Estim Average Glucose (70-100) Lactic Acid (0.5-2.2) mmol/L Calcium 8.5 (8.5-10.3) mg/dL Magnesium 2.3 (1.7-2.8) mg/dL Total Bilirubin (0.2-1.0) mg/dL AST (10-42) IU/L ALT (10-60) IU/L Alkaline Phosphatase (42-121) IU/L Troponin I (<0.49) ng/mL C-React Prot High Sens mg/L Total Protein (6.7-8.2) g/dL Albumin (3.2-5.5) g/dL Globulin (2.1-4.2) g/dL Albumin/Globulin Ratio (1.0-2.2) Urine Color Urine Clarity (CLEAR) Urine pH (5.0-7.5) PH Ur Specific [place] (1.002-1.030) Urine Protein (NEGATIVE) mg/dL Urine Glucose (UA) (NEGATIVE) mg/dL Urine Ketones (NEGATIVE) mg/dL Urine Occult Blood (NEGATIVE) Urine Nitrite (NEGATIVE) Urine Bilirubin (NEGATIVE) Urine Urobilinogen (NORMAL) E.U./dL Ur Leukocyte Esterase (NEGATIVE) Urine RBC (0-5) /HPF Urine WBC (0-3) /HPF Ur Squamous Epith Cells (<= Few) Urine Bacteria (None Seen) /HPF Urine Culture Comments Serum Ketones SMALL H (NEGATIVE) 07/06/18 07/06/18 07/06/18 Range/Units 16:34 15:35 15:35 WBC (4.8-10.8) x10^3/uL RBC (4.70-6.10) 10^6/uL Hgb (14.0-18.0) g/dL Hct (42.0-52.0) % MCV (80.0-94.0) fL MCH (27.0-31.0) pg MCHC (32.0-36.0) g/dL RDW (12.0-15.0) % Plt Count (130-450) 10^3/uL MPV (7.4-11.4) fL Neut # (Auto) (1.5-6.6) 10^3/uL Lymph # (Auto) (1.5-3.5) 10^3/uL [place] # (Auto) (0.0-1.0) 10^3/uL Eos # (Auto) (0.0-0.7) 10^3/uL Baso # (Auto) (0.0-0.1) 10^3/uL Absolute Nucleated RBC x10^3/uL Nucleated RBC % /100WBC PT (9.9-12.6) secs INR (0.8-1.2) VBG pH (7.31-7.41) VBG pCO2 (41-51) mmHg VBG pO2 (25-47) mmHg VBG HCO3 (23-28) mmol/L VBG Total CO2 (24-29) mmol/L VBG O2 Saturation (60-80) % VBG Base Excess (-2 - +2) mmol/L Sodium 125 L (135-145) mmol/L Potassium 4.5 (3.5-5.0) mmol/L Chloride 91 L (101-111) mmol/L Carbon Dioxide 19 L (21-32) mmol/L Anion Gap 15.0 H (6-13) BUN 33 H (6-20) mg/dL Creatinine 1.9 H (0.6-1.2) mg/dL Estimated GFR (MDRD) 36 L (>89) Glucose 485 H (70-100) mg/dL POC Whole Bld Glucose 487 H (70 - 100) mg/dL Glycated Hemoglobin (4.6-6.2) % Estim Average Glucose (70-100) Lactic Acid 1.6 (0.5-2.2) mmol/L Calcium 8.4 L (8.5-10.3) mg/dL Magnesium (1.7-2.8) mg/dL Total Bilirubin (0.2-1.0) mg/dL AST (10-42) IU/L ALT (10-60) IU/L Alkaline Phosphatase (42-121) IU/L Troponin I (<0.49) ng/mL C-React Prot High Sens mg/L Total Protein (6.7-8.2) g/dL Albumin (3.2-5.5) g/dL Globulin (2.1-4.2) g/dL Albumin/Globulin Ratio (1.0-2.2) Urine Color Urine Clarity (CLEAR) Urine pH (5.0-7.5) PH Ur Specific [place] (1.002-1.030) Urine Protein (NEGATIVE) mg/dL Urine Glucose (UA) (NEGATIVE) mg/dL Urine Ketones (NEGATIVE) mg/dL Urine Occult Blood (NEGATIVE) Urine Nitrite (NEGATIVE) Urine Bilirubin (NEGATIVE) Urine Urobilinogen (NORMAL) E.U./dL Ur Leukocyte Esterase (NEGATIVE) Urine RBC (0-5) /HPF Urine WBC (0-3) /HPF Ur Squamous Epith Cells (<= Few) Urine Bacteria (None Seen) /HPF Urine Culture Comments Serum Ketones SMALL H (NEGATIVE) 07/06/18 07/06/18 07/06/18 Range/Units 14:30 14:30 14:30 WBC (4.8-10.8) x10^3/uL RBC (4.70-6.10) 10^6/uL Hgb (14.0-18.0) g/dL Hct (42.0-52.0) % MCV (80.0-94.0) fL MCH (27.0-31.0) pg MCHC (32.0-36.0) g/dL RDW (12.0-15.0) % Plt Count (130-450) 10^3/uL MPV (7.4-11.4) fL Neut # (Auto) (1.5-6.6) 10^3/uL Lymph # (Auto) (1.5-3.5) 10^3/uL [place] # (Auto) (0.0-1.0) 10^3/uL Eos # (Auto) (0.0-0.7) 10^3/uL Baso # (Auto) (0.0-0.1) 10^3/uL Absolute Nucleated RBC x10^3/uL Nucleated RBC % /100WBC PT (9.9-12.6) secs INR (0.8-1.2) VBG pH (7.31-7.41) VBG pCO2 (41-51) mmHg VBG pO2 (25-47) mmHg VBG HCO3 (23-28) mmol/L VBG Total CO2 (24-29) mmol/L VBG O2 Saturation (60-80) % VBG Base Excess (-2 - +2) mmol/L Sodium 123 L (135-145) mmol/L Potassium 5.0 (3.5-5.0) mmol/L Chloride 88 L (101-111) mmol/L Carbon Dioxide 19 L (21-32) mmol/L Anion Gap 16.0 H (6-13) BUN 35 H (6-20) mg/dL Creatinine 1.8 H (0.6-1.2) mg/dL Estimated GFR (MDRD) 39 L (>89) Glucose 546 H* (70-100) mg/dL POC Whole Bld Glucose (70 - 100) mg/dL Glycated Hemoglobin (4.6-6.2) % Estim Average Glucose (70-100) Lactic Acid (0.5-2.2) mmol/L Calcium 8.4 L (8.5-10.3) mg/dL Magnesium (1.7-2.8) mg/dL Total Bilirubin (0.2-1.0) mg/dL AST (10-42) IU/L ALT (10-60) IU/L Alkaline Phosphatase (42-121) IU/L Troponin I 0.04 (<0.49) ng/mL C-React Prot High Sens mg/L Total Protein (6.7-8.2) g/dL Albumin (3.2-5.5) g/dL Globulin (2.1-4.2) g/dL Albumin/Globulin Ratio (1.0-2.2) Urine Color Urine Clarity (CLEAR) Urine pH (5.0-7.5) PH Ur Specific [place] (1.002-1.030) Urine Protein (NEGATIVE) mg/dL Urine Glucose (UA) (NEGATIVE) mg/dL Urine Ketones (NEGATIVE) mg/dL Urine Occult Blood (NEGATIVE) Urine Nitrite (NEGATIVE) Urine Bilirubin (NEGATIVE) Urine Urobilinogen (NORMAL) E.U./dL Ur Leukocyte Esterase (NEGATIVE) Urine RBC (0-5) /HPF Urine WBC (0-3) /HPF Ur Squamous Epith Cells (<= Few) Urine Bacteria (None Seen) /HPF Urine Culture Comments Serum Ketones SMALL H (NEGATIVE) 07/06/18 07/06/18 07/06/18 Range/Units 12:46 12:25 11:45 WBC (4.8-10.8) x10^3/uL RBC (4.70-6.10) 10^6/uL Hgb (14.0-18.0) g/dL Hct (42.0-52.0) % MCV (80.0-94.0) fL MCH (27.0-31.0) pg MCHC (32.0-36.0) g/dL RDW (12.0-15.0) % Plt Count (130-450) 10^3/uL MPV (7.4-11.4) fL Neut # (Auto) (1.5-6.6) 10^3/uL Lymph # (Auto) (1.5-3.5) 10^3/uL [place] # (Auto) (0.0-1.0) 10^3/uL Eos # (Auto) (0.0-0.7) 10^3/uL Baso # (Auto) (0.0-0.1) 10^3/uL Absolute Nucleated RBC x10^3/uL Nucleated RBC % /100WBC PT 15.2 H (9.9-12.6) secs INR 1.4 H (0.8-1.2) VBG pH 7.303 L (7.31-7.41) VBG pCO2 34.0 L (41-51) mmHg VBG pO2 51.7 H (25-47) mmHg VBG HCO3 16.5 L (23-28) mmol/L VBG Total CO2 17.5 L (24-29) mmol/L VBG O2 Saturation 87.0 H (60-80) % VBG Base Excess -8.8 L (-2 - +2) mmol/L Sodium (135-145) mmol/L Potassium (3.5-5.0) mmol/L Chloride (101-111) mmol/L Carbon Dioxide (21-32) mmol/L Anion Gap (6-13) BUN (6-20) mg/dL Creatinine (0.6-1.2) mg/dL Estimated GFR (MDRD) (>89) Glucose (70-100) mg/dL POC Whole Bld Glucose (70 - 100) mg/dL Glycated Hemoglobin (4.6-6.2) % Estim Average Glucose (70-100) Lactic Acid (0.5-2.2) mmol/L Calcium (8.5-10.3) mg/dL Magnesium (1.7-2.8) mg/dL Total Bilirubin (0.2-1.0) mg/dL AST (10-42) IU/L ALT (10-60) IU/L Alkaline Phosphatase (42-121) IU/L Troponin I (<0.49) ng/mL C-React Prot High Sens mg/L Total Protein (6.7-8.2) g/dL Albumin (3.2-5.5) g/dL Globulin (2.1-4.2) g/dL Albumin/Globulin Ratio (1.0-2.2) Urine Color YELLOW Urine Clarity CLEAR (CLEAR) Urine pH 5.5 (5.0-7.5) PH Ur Specific [place] 1.020 (1.002-1.030) Urine Protein 30 H (NEGATIVE) mg/dL Urine Glucose (UA) >=1000 H (NEGATIVE) mg/dL Urine Ketones 40 H (NEGATIVE) mg/dL Urine Occult Blood SMALL H (NEGATIVE) Urine Nitrite NEGATIVE (NEGATIVE) Urine Bilirubin NEGATIVE (NEGATIVE) Urine Urobilinogen 0.2 (NORMAL) (NORMAL) E.U./dL Ur Leukocyte Esterase NEGATIVE (NEGATIVE) Urine RBC 0-5 (0-5) /HPF Urine WBC 0-3 (0-3) /HPF Ur Squamous Epith Cells RARE Squamous (<= Few) Urine Bacteria Rare (None Seen) /HPF Urine Culture Comments NOT INDICATED Serum Ketones (NEGATIVE) 07/06/18 07/06/18 07/06/18 Range/Units 11:45 11:45 11:45 WBC (4.8-10.8) x10^3/uL RBC (4.70-6.10) 10^6/uL Hgb (14.0-18.0) g/dL Hct (42.0-52.0) % MCV (80.0-94.0) fL MCH (27.0-31.0) pg MCHC (32.0-36.0) g/dL RDW (12.0-15.0) % Plt Count (130-450) 10^3/uL MPV (7.4-11.4) fL Neut # (Auto) (1.5-6.6) 10^3/uL Lymph # (Auto) (1.5-3.5) 10^3/uL [place] # (Auto) (0.0-1.0) 10^3/uL Eos # (Auto) (0.0-0.7) 10^3/uL Baso # (Auto) (0.0-0.1) 10^3/uL Absolute Nucleated RBC x10^3/uL Nucleated RBC % /100WBC PT (9.9-12.6) secs INR (0.8-1.2) VBG pH (7.31-7.41) VBG pCO2 (41-51) mmHg VBG pO2 (25-47) mmHg VBG HCO3 (23-28) mmol/L VBG Total CO2 (24-29) mmol/L VBG O2 Saturation (60-80) % VBG Base Excess (-2 - +2) mmol/L Sodium 125 L (135-145) mmol/L Potassium 6.1 H* (3.5-5.0) mmol/L Chloride 89 L (101-111) mmol/L Carbon Dioxide 16 L (21-32) mmol/L Anion Gap 20.0 H (6-13) BUN 33 H (6-20) mg/dL Creatinine 2.0 H (0.6-1.2) mg/dL Estimated GFR (MDRD) 34 L (>89) Glucose 551 H* (70-100) mg/dL POC Whole Bld Glucose (70 - 100) mg/dL Glycated Hemoglobin 13.9 H (4.6-6.2) % Estim Average Glucose 352 H (70-100) Lactic Acid (0.5-2.2) mmol/L Calcium 8.7 (8.5-10.3) mg/dL Magnesium 1.9 (1.7-2.8) mg/dL Total Bilirubin 1.6 H (0.2-1.0) mg/dL AST 20 (10-42) IU/L ALT 20 (10-60) IU/L Alkaline Phosphatase 157 H (42-121) IU/L Troponin I < 0.04 (<0.49) ng/mL C-React Prot High Sens 307.7 mg/L Total Protein 7.7 (6.7-8.2) g/dL Albumin 3.4 (3.2-5.5) g/dL Globulin 4.3 H (2.1-4.2) g/dL Albumin/Globulin Ratio 0.8 L (1.0-2.2) Urine Color Urine Clarity (CLEAR) Urine pH (5.0-7.5) PH Ur Specific [place] (1.002-1.030) Urine Protein (NEGATIVE) mg/dL Urine Glucose (UA) (NEGATIVE) mg/dL Urine Ketones (NEGATIVE) mg/dL Urine Occult Blood (NEGATIVE) Urine Nitrite (NEGATIVE) Urine Bilirubin (NEGATIVE) Urine Urobilinogen (NORMAL) E.U./dL Ur Leukocyte Esterase (NEGATIVE) Urine RBC (0-5) /HPF Urine WBC (0-3) /HPF Ur Squamous Epith Cells (<= Few) Urine Bacteria (None Seen) /HPF Urine Culture Comments Serum Ketones (NEGATIVE) 07/06/18 07/06/18 Range/Units 11:45 11:45 WBC 10.0 (4.8-10.8) x10^3/uL RBC 4.88 (4.70-6.10) 10^6/uL Hgb 14.1 (14.0-18.0) g/dL Hct 41.1 L (42.0-52.0) % MCV 84.2 (80.0-94.0) fL MCH 28.8 (27.0-31.0) pg MCHC 34.2 (32.0-36.0) g/dL RDW 14.2 (12.0-15.0) % Plt Count 248 (130-450) 10^3/uL MPV 6.9 L (7.4-11.4) fL Neut # (Auto) 9.4 H (1.5-6.6) 10^3/uL Lymph # (Auto) 0.1 L (1.5-3.5) 10^3/uL [place] # (Auto) 0.4 (0.0-1.0) 10^3/uL Eos # (Auto) 0.0 (0.0-0.7) 10^3/uL Baso # (Auto) 0.1 (0.0-0.1) 10^3/uL Absolute Nucleated RBC 0.00 x10^3/uL Nucleated RBC % 0.0 /100WBC PT (9.9-12.6) secs INR (0.8-1.2) VBG pH (7.31-7.41) VBG pCO2 (41-51) mmHg VBG pO2 (25-47) mmHg VBG HCO3 (23-28) mmol/L VBG Total CO2 (24-29) mmol/L VBG O2 Saturation (60-80) % VBG Base Excess (-2 - +2) mmol/L Sodium (135-145) mmol/L Potassium (3.5-5.0) mmol/L Chloride (101-111) mmol/L Carbon Dioxide (21-32) mmol/L Anion Gap (6-13) BUN (6-20) mg/dL Creatinine (0.6-1.2) mg/dL Estimated GFR (MDRD) (>89) Glucose (70-100) mg/dL POC Whole Bld Glucose (70 - 100) mg/dL Glycated Hemoglobin (4.6-6.2) % Estim Average Glucose (70-100) Lactic Acid 2.7 H (0.5-2.2) mmol/L Calcium (8.5-10.3) mg/dL Magnesium (1.7-2.8) mg/dL Total Bilirubin (0.2-1.0) mg/dL AST (10-42) IU/L ALT (10-60) IU/L Alkaline Phosphatase (42-121) IU/L Troponin I (<0.49) ng/mL C-React Prot High Sens mg/L Total Protein (6.7-8.2) g/dL Albumin (3.2-5.5) g/dL Globulin (2.1-4.2) g/dL Albumin/Globulin Ratio (1.0-2.2) Urine Color Urine Clarity (CLEAR) Urine pH (5.0-7.5) PH Ur Specific [place] (1.002-1.030) Urine Protein (NEGATIVE) mg/dL Urine Glucose (UA) (NEGATIVE) mg/dL Urine Ketones (NEGATIVE) mg/dL Urine Occult Blood (NEGATIVE) Urine Nitrite (NEGATIVE) Urine Bilirubin (NEGATIVE) Urine Urobilinogen (NORMAL) E.U./dL Ur Leukocyte Esterase (NEGATIVE) Urine RBC (0-5) /HPF Urine WBC (0-3) /HPF Ur Squamous Epith Cells (<= Few) Urine Bacteria (None Seen) /HPF Urine Culture Comments Serum Ketones (NEGATIVE) - Current Medications Current Medications: Current Medications Generic Name Dose Route Start Last Admin Trade Name Freq PRN Reason Stop Dose Admin Acetaminophen 650 mg 07/06/18 10:57 07/07/18 03:46 Tylenol PO 650 mg Q4HR PRN Administration Pain or Fever > 38C (100.4F) Famotidine 20 mg 07/06/18 21:00 07/07/18 08:23 Pepcid PO 20 mg DAILY VERONICA Administration Heparin Sodium (Porcine) 5,000 unit 07/06/18 21:00 07/07/18 08:24 SUBQ 5,000 unit BID VERONICA Administration Insulin Human Regular 100 unit 100 mls @ 8.6 mls/hr 07/06/18 14:00 07/07/18 03:39 / Sodium Chloride IV Not Given .[id number] VERONICA Protocol 8.6 UNIT/HR Sodium Chloride 1,000 mls @ 150 mls/hr 07/06/18 14:00 07/07/18 04:26 Normal Saline 0.9% IV 150 mls/hr .[id number] VERONICA Administration Meropenem 1 gm/ Sodium 100 mls @ 200 mls/hr 07/06/18 19:00 07/07/18 04:25 Chloride IV Infused Q8H [facility] Infusion Insulin Aspart 1 - 9 unit 07/06/18 12:00 07/07/18 08:22 Novolog SUBQ 3 unit 0800,1200,1700,2100 VERONICA Administration Protocol Insulin Glargine 70 unit 07/06/18 21:00 07/07/18 08:25 Lantus Solostar SUBQ 70 unit BID [facility] Administration Polyethylene Glycol 17 gm 07/07/18 09:00 07/07/18 08:25 Miralax PO Not Given DAILY [facility] Sodium Chloride 10 ml 07/06/18 17:00 07/07/18 08:29 Normal Saline Flush 0.9% IVP Not Given 0100,0900,1700 [facility] - Physical Exam Wound/Incisions: positive: Drainage Extremities: positive: Joint swelling Neurologic/Psychiatric: positive: Oriented x3, CN's nml (2-12), Mood/affect nml
[2018-07-07] MEDS: SACCHAROMYCES BOULARDII 250 MG CAPSULE PO SCH ×2 (12:24→17:14)
--- NOTE | 2018-07-07 13:19 | MRI Report ---
Reason: Eval for osteo Procedure Date: 07/07/2018 Accession Number: [id number] / [id number] Procedure: MRI - Foot RT W/O CPT Code: FULL RESULT: EXAM: RIGHT MIDFOOT MRI WITHOUT CONTRAST EXAM DATE: 07/07/2018 11:27 AM. CLINICAL HISTORY: Postoperative. Clinical concern for osteomyelitis. COMPARISON: 07/06/2018 radiograph, MRI 11/25/2016. TECHNIQUE: Multiplanar, multisequence T1-weighted and fluid-sensitive sequences of the midfoot without contrast. Other: None. FINDINGS: Bones: The patient has had amputation of the proximal quarter of the fifth metatarsal. No acute fractures. The patient has marrow edema in the proximal 50% percent of the second through fifth metatarsals, within all the cuneiforms, and the distal cuboid. This all demonstrates low T1 signal. All of these findings were present on the prior examination as well except for increasing erosion at the inferior portion of the cuboid (series 701, image 28). There is joint space narrowing within the more lateral tarsometatarsal joints. Articular Cartilage: Unremarkable. Ligaments: The visualized intertarsal, intermetatarsal, and tarsometatarsal ligaments are intact. This includes the Lisfranc ligament. The visualized collateral ligaments are intact. Tendons: Fluid is in the extensor digitorum tendon sheath. Extensor hallucis longus, and tibialis interior tendons are unremarkable. The medial and lateral tendons are unremarkable. Musculature: There is muscle edema and low T1 signal in the intrinsic musculature of the foot. That near the known ulcer could reflect pyomyositis. Other: No effusions. No intermetatarsal bursitis. Subcutaneous edema is demonstrated in the dorsal and lateral plantar midfoot. There is an ulcer in the plantar midfoot near the amputation site. In this area, there is a fluid collection extending from the subcutaneous tissues all the way to the cuboid and base of the fourth metatarsal. It measures approximately 1.7 x 4.8 x 4.5 cm. IMPRESSION: 1. 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 There is an ulcer near the surgical site plantarly that has what is likely an abscess adjacent to it that extends to the cuboid and base of the fourth metatarsal. 2. Abnormal marrow signal in the midfoot as an underlying appearance suggestive of Charcot joint. That within the cuboid and base of the fourth metatarsal is concerning for potential osteomyelitis given the adjacent ulcer. 3. Tenosynovitis of the extensor digitorum tendon sheath. [facility] MUSCULOSKELETAL RADIOLOGY SECTION
--- NOTE | 2018-07-07 14:17 | XRAY Report ---
Reason: PICC Placement Procedure Date: 07/07/2018 Accession Number: [id number] / [id number] Procedure: XR - Chest for Line Placement CPT Code: FULL RESULT: EXAM: CHEST RADIOGRAPHY EXAM DATE: 07/07/2018 02:09 PM. CLINICAL HISTORY: PICC Placement. COMPARISON: CHEST 1 VIEW 07/06/2018 12:19 PM. TECHNIQUE: 1 view. FINDINGS: Lungs/Pleura: No focal opacities evident. No pleural effusion. No pneumothorax. Mediastinum: New left upper extremity PICC line tip is at the low SVC. Heart size is normal. Other: None. IMPRESSION: PICC line tip at low SVC. [facility]
[2018-07-07] MEDS ORDERED: VANCOMYCIN INJ 1.5 GM in SODIUM CHLORIDE 0.9% 500 ML IV SCH (18:00)
[2018-07-07] MEDS: VANCOMYCIN INJ 1.5 GM in SODIUM CHLORIDE 0.9% 500 ML IV SCH (18:22)
--- NOTE | 2018-07-07 18:29 | PROVIDER PROGRESS NOTE ---
Subjective - Prog Note Date Prog Note Date: 07/07/18 Prog Note Time: 18:28 - Subjective Pt reports feeling: Improved (right diabetic foot infection stable and with some minimal drainage. No OM suspected per Ortho. Subjective chills no fevers. Denies CP, SOB, /GI symptoms. Improved weakness.) Current Medications - Current Medications Current Medications: Active Medications Acetaminophen (Tylenol) 650 mg PO Q4HR PRN PRN Reason: Pain or Fever > 38C (100.4F) Last Admin: 07/07/18 15:53 Dose: 650 mg Aspirin (Ecotrin) 81 mg PO DAILY [facility] Atorvastatin Calcium (Lipitor) 40 mg PO QPM [facility] Famotidine (Pepcid) 20 mg PO DAILY [facility] Last Admin: 07/07/18 08:23 Dose: 20 mg Heparin Sodium (Porcine) () 5,000 unit SUBQ BID [facility] Last Admin: 07/07/18 08:24 Dose: 5,000 unit Hydromorphone HCl (Dilaudid Inj Syringe) 0.5 mg IVP Q2H PRN PRN Reason: Pain 8 to 10 Meropenem 1 gm/ Sodium (Chloride) 100 mls @ 200 mls/hr IV Q8H [facility] Last Admin: 07/07/18 18:07 Dose: 200 mls/hr Sodium Chloride (Normal Saline 0.9%) 1,000 mls @ 75 mls/hr IV .[id number] [facility] Last Admin: 07/07/18 13:50 Dose: 75 mls/hr Vancomycin HCl 1.5 gm/ Sodium (Chloride) 500 mls @ 250 mls/hr IV Q24H [facility] Last Admin: 07/07/18 18:22 Dose: 250 mls/hr Ibuprofen (Motrin) 600 mg PO Q6HR PRN PRN Reason: Pain 1 to 4 Insulin Aspart (Novolog) 1 - 9 unit SUBQ 0800,1200,1700,2100 [facility]; Protocol Last Admin: 07/07/18 17:14 Dose: 5 unit Insulin Glargine (Lantus Solostar) 75 unit SUBQ BID [facility] Pneumococcal 13-Valent Conj Vacc (Prevnar) 0.5 ml IM .ONCE ONE Stop: 07/08/18 09:01 Polyethylene Glycol (Miralax) 17 gm PO DAILY [facility] Last Admin: 07/07/18 08:25 Dose: Not Given Prochlorperazine Edisylate (Compazine Inj) 10 mg IVP Q6HR PRN PRN Reason: Nausea / Vomiting Saccharomyces Boulardii (Florastor) 250 mg PO BIDWM [facility] Last Admin: 07/07/18 17:14 Dose: 250 mg Sodium Chloride (Normal Saline Flush 0.9%) 10 ml IVP PRN PRN PRN Reason: NEEDED PER PROVIDER ORDERS Sodium Chloride (Normal Saline Flush 0.9%) 10 ml IVP 0100,0900,1700 [facility] Last Admin: 07/07/18 17:14 Dose: 10 ml Zolpidem Tartrate (Ambien) 5 mg PO QPM PRN PRN Reason: Insomnia Aspirin [Ecotrin] 81 mg PO DAILY 01/05/15 Insulin Lispro [Humalog] 20 unit SQ TIDWM MDD 30 units per injection 01/05/15 Empagliflozin [Jardiance] 12.5 mg PO DAILY 08/26/16 Insulin Glargine [Lantus] 70 units SUBQ BID 11/24/16 Atorvastatin [Lipitor] 10 mg PO QPM 02/03/17 Objective - Vital Signs/Intake & Output Vital Signs: Vital Signs x48h Temp Pulse Resp BP Pulse Ox 07/07/18 18:00 98 28 H 126/63 07/07/18 17:00 38.1 C H 100 15 126/65 96 07/07/18 16:00 38.4 C H 105 H 21 143/72 H 07/07/18 15:00 101 H 16 159/72 H 07/07/18 14:00 106 H 22 159/82 H 07/07/18 13:00 102 H 19 152/79 H 07/07/18 12:00 37.4 C 98 20 149/73 H 97 Intake & Output: Intake & Output 07/04/18 07/05/18 07/06/18 07/07/18 23:59 23:59 23:59 23:59 Intake Total 3046.447 5342.5 Output Total 0 Balance 3046.447 5342.5 - Objective General Appearance: positive: No acute distress Neck: positive: Nml inspection, Thyroid nml, No JVD, Trachea midline. negative: Thyromegaly Respiratory: positive: Chest non-tender, No respiratory distress, Breath sounds nml Cardiovascular: positive: Regular rate & rhythm, No murmur, No gallop Peripheral Pulses: 1+ Dorsalis pedis (R), 2+ Dorsalis pedis (L) Abdomen: positive: Non-tender, No organomegaly, Nml bowel sounds, No distention. negative: Tenderness Skin: positive: Color nml, No rash Extremities: positive: Non-tender, Pedal edema, Other (Left foot with several healed previous toe amputations. Right foot bandaged from toels to heel.) Neurologic/Psychiatric: positive: Oriented x3, Sensory loss - Lab Results Fish Bones: 07/07/18 05:15 07/07/18 05:15 Other Labs: Lab Results x24hrs 07/07/18 07/07/18 07/07/18 Range/Units 16:51 11:38 08:04 WBC (4.8-10.8) x10^3/uL RBC (4.70-6.10) 10^6/uL Hgb (14.0-18.0) g/dL Hct (42.0-52.0) % MCV (80.0-94.0) fL MCH (27.0-31.0) pg MCHC (32.0-36.0) g/dL RDW (12.0-15.0) % Plt Count (130-450) 10^3/uL MPV (7.4-11.4) fL Neut # (Auto) (1.5-6.6) 10^3/uL Lymph # (Auto) (1.5-3.5) 10^3/uL Gray # (Auto) (0.0-1.0) 10^3/uL Eos # (Auto) (0.0-0.7) 10^3/uL Baso # (Auto) (0.0-0.1) 10^3/uL Absolute Nucleated RBC x10^3/uL Nucleated RBC % /100WBC Sodium (135-145) mmol/L Potassium (3.5-5.0) mmol/L Chloride (101-111) mmol/L Carbon Dioxide (21-32) mmol/L Anion Gap (6-13) BUN (6-20) mg/dL Creatinine (0.6-1.2) mg/dL Estimated GFR (MDRD) (>89) Glucose (70-100) mg/dL POC Whole Bld Glucose 246 H 228 H 194 H (70 - 100) mg/dL Calcium (8.5-10.3) mg/dL Magnesium (1.7-2.8) mg/dL Troponin I (<0.49) ng/mL Serum Ketones (NEGATIVE) 07/07/18 07/07/18 07/07/18 Range/Units 07:53 05:15 05:15 WBC 5.0 (4.8-10.8) x10^3/uL RBC 3.92 L (4.70-6.10) 10^6/uL Hgb 11.2 L (14.0-18.0) g/dL Hct 32.4 L (42.0-52.0) % MCV 82.7 (80.0-94.0) fL MCH 28.6 (27.0-31.0) pg MCHC 34.6 (32.0-36.0) g/dL RDW 14.6 (12.0-15.0) % Plt Count 208 (130-450) 10^3/uL MPV 6.9 L (7.4-11.4) fL Neut # (Auto) 4.1 (1.5-6.6) 10^3/uL Lymph # (Auto) 0.2 L (1.5-3.5) 10^3/uL Gray # (Auto) 0.5 (0.0-1.0) 10^3/uL Eos # (Auto) 0.0 (0.0-0.7) 10^3/uL Baso # (Auto) 0.0 (0.0-0.1) 10^3/uL Absolute Nucleated RBC 0.00 x10^3/uL Nucleated RBC % 0.0 /100WBC Sodium 129 L (135-145) mmol/L Potassium 3.5 (3.5-5.0) mmol/L Chloride 99 L (101-111) mmol/L Carbon Dioxide 22 (21-32) mmol/L Anion Gap 8.0 (6-13) BUN 24 H (6-20) mg/dL Creatinine 1.3 H (0.6-1.2) mg/dL Estimated GFR (MDRD) 56 L (>89) Glucose 227 H (70-100) mg/dL POC Whole Bld Glucose (70 - 100) mg/dL Calcium 7.9 L (8.5-10.3) mg/dL Magnesium 1.9 (1.7-2.8) mg/dL Troponin I < 0.04 (<0.49) ng/mL Serum Ketones (NEGATIVE) 07/06/18 07/06/18 07/06/18 Range/Units 23:56 20:06 20:00 WBC (4.8-10.8) x10^3/uL RBC (4.70-6.10) 10^6/uL Hgb (14.0-18.0) g/dL Hct (42.0-52.0) % MCV (80.0-94.0) fL MCH (27.0-31.0) pg MCHC (32.0-36.0) g/dL RDW (12.0-15.0) % Plt Count (130-450) 10^3/uL MPV (7.4-11.4) fL Neut # (Auto) (1.5-6.6) 10^3/uL Lymph # (Auto) (1.5-3.5) 10^3/uL Gray # (Auto) (0.0-1.0) 10^3/uL Eos # (Auto) (0.0-0.7) 10^3/uL Baso # (Auto) (0.0-0.1) 10^3/uL Absolute Nucleated RBC x10^3/uL Nucleated RBC % /100WBC Sodium (135-145) mmol/L Potassium (3.5-5.0) mmol/L Chloride (101-111) mmol/L Carbon Dioxide (21-32) mmol/L Anion Gap (6-13) BUN (6-20) mg/dL Creatinine (0.6-1.2) mg/dL Estimated GFR (MDRD) (>89) Glucose (70-100) mg/dL POC Whole Bld Glucose 289 H 226 H (70 - 100) mg/dL Calcium (8.5-10.3) mg/dL Magnesium (1.7-2.8) mg/dL Troponin I < 0.04 (<0.49) ng/mL Serum Ketones (NEGATIVE) 07/06/18 07/06/18 Range/Units 20:00 18:40 WBC (4.8-10.8) x10^3/uL RBC (4.70-6.10) 10^6/uL Hgb (14.0-18.0) g/dL Hct (42.0-52.0) % MCV (80.0-94.0) fL MCH (27.0-31.0) pg MCHC (32.0-36.0) g/dL RDW (12.0-15.0) % Plt Count (130-450) 10^3/uL MPV (7.4-11.4) fL Neut # (Auto) (1.5-6.6) 10^3/uL Lymph # (Auto) (1.5-3.5) 10^3/uL Gray # (Auto) (0.0-1.0) 10^3/uL Eos # (Auto) (0.0-0.7) 10^3/uL Baso # (Auto) (0.0-0.1) 10^3/uL Absolute Nucleated RBC x10^3/uL Nucleated RBC % /100WBC Sodium (135-145) mmol/L Potassium (3.5-5.0) mmol/L Chloride (101-111) mmol/L Carbon Dioxide (21-32) mmol/L Anion Gap (6-13) BUN (6-20) mg/dL Creatinine (0.6-1.2) mg/dL Estimated GFR (MDRD) (>89) Glucose 319 H (70-100) mg/dL POC Whole Bld Glucose (70 - 100) mg/dL Calcium (8.5-10.3) mg/dL Magnesium (1.7-2.8) mg/dL Troponin I (<0.49) ng/mL Serum Ketones NEGATIVE (NEGATIVE) ABX Reporting Has patient been on IV antibiotics over the past 48 hours?: Yes Assessment/Plan - Problem List (1) Bacteremia due to Gram-negative bacteria Impression: Gram neg cocci on 2 blood cultures taken on 07/06. Continue with IV vanco/Merrem. ID to follow. (2) Diabetic foot infection Impression: Xrays shows no evidence of OM, MRI was d/c'ed, s/p debridement by Je and does not believe there is an OM. Wound care to follow for recs, wound vac recommended by ortho. IV merrema and vanco to continue, s/p PICC line. Bone bx for infectious de-escalation would be beneficial. Likely will have poor wound healing as a result of poorly controlled IDDM. May also have coexistant PAD/PVD. (3) CKD (chronic kidney disease) stage 3, GFR 30-59 ml/min Impression: TEZ/Angi resolved with baseline cr 1.0-1.4. Continue with aggressive glycemic control. Component of volume depletion due to recent DKA, currently hyperosmolar and hyperglycemic with pseudohyponatremia out of dka with co2 normal. Diabetic nephropathy underlying, Avoid nephrotoixic agents, correct lytes. (4) Hyperosmolality syndrome Impression: pseudohyponatremia. correct underlying lyte d/o, IVF's, glycemic control. (5) Electrolyte disorder Impression: Check mag, mary and other electrolytes to correct if needed. (6) Diabetes mellitus, insulin dependent (IDDM), uncontrolled Impression: Hgba1c 13.9%, uncontrolled, certified breastfeeding educator referral, increase lantus to 75 units BID, continue with bolus coverage. ISS, monitor hyperglycemic excursions in the setting of poor wound healing. Qualifiers: Glycemic state: with hyperglycemia Qualified Code(s): E10.65 - Type 1 diabetes mellitus with hyperglycemia
[2018-07-07] MEDS: ATORVASTATIN 40 MG TABLET PO SCH (20:58)
[2018-07-08] MEDS: SODIUM CHLORIDE FLUSH 0.9% 10 ML SYRINGE IVP SCH ×4 (00:46→21:08)
[2018-07-08] MEDS: SODIUM CHLORIDE 0.9% 1,000 ML IV SCH ×2 (00:48→16:09)
[2018-07-08] MEDS: MEROPENEM 1 GM in SODIUM CHLORIDE 0.9% MINIBAG 100 ML IV SCH ×3 (02:55→21:03)
[2018-07-08 05:20] LABS: BASOPHILS % (AUTO) 0.8 %; EOSINOPHILS % (AUTO) 0.9 %; HGB - HEMOGLOBIN 10.5 g/dL (14.0-18.0); LYMPHOCYTES # (AUTO) 0.4 10^3/uL (1.5-3.5); LYMPHOCYTES % (AUTO) 9.8 %; MEAN CORPUSCULAR HEMOGLOBIN 28.9 pg (27.0-31.0); MEAN CORPUSCULAR HGB CONC 35.2 g/dL (32.0-36.0); MEAN CORPUSCULAR VOLUME 82.1 fL (80.0-94.0); MONOCYTES # (AUTO) 0.5 10^3/uL (0.0-1.0); MONOCYTES % (AUTO) 13.3 %; NEUTROPHILS # (AUTO) 2.8 10^3/uL (1.5-6.6); NEUTROPHILS % (AUTO) 75.2 %; PLT - PLATELET COUNT 206 10^3/uL (130-450); RED BLOOD COUNT 3.64 10^6/uL (4.70-6.10); RED CELL DISTRIBUTION WIDTH 14.5 % (12.0-15.0); WHITE BLOOD COUNT 3.7 x10^3/uL (4.8-10.8)
[2018-07-08 05:34] LABS: CALCIUM 8.2 mg/dL (8.5-10.3); CREATININE 0.8 mg/dL (0.6-1.2)
[2018-07-08] MEDS: INSULIN ASPART 300 UNIT/3 ML PEN SUBQ SCH ×4 (08:03→21:08)
[2018-07-08] MEDS: FAMOTIDINE 20 MG TABLET PO SCH (08:18)
[2018-07-08] MEDS: SACCHAROMYCES BOULARDII 250 MG CAPSULE PO SCH ×2 (08:18→17:35)
[2018-07-08] MEDS: ASPIRIN EC 81 MG TABLET PO SCH (08:18)
[2018-07-08] MEDS: PIOGLITAZONE 15 MG TABLET PO SCH (08:18)
[2018-07-08] MEDS: POLYETHYLENE GLYCOL 3350 17 GM PACKET PO SCH (08:19)
[2018-07-08] MEDS ORDERED: PNEUMOCOCCAL 13-VALENT CONJ 0.5 ML SYRINGE IM ONE (09:00)
[2018-07-08] MEDS: INSULIN GLARGINE 300 UNIT/3 ML PEN SUBQ SCH ×2 (09:07→21:04)
[2018-07-08] MEDS: HEPARIN 5,000 UNIT/ML VIAL SUBQ SCH ×2 (09:08→21:03)
--- NOTE | 2018-07-08 09:50 | PROVIDER PROGRESS NOTE ---
Subjective - General Admit Date: 07/06/18 Procedure Date: 06/30/18 Post Op Days: 8 - Review of Systems Wound/Incisions: positive: Drainage General: positive: Malaise Musculoskeletal: positive: Joint pain, Joint swelling Objective - Patient Data Reviewed Vital Signs: Yes Vital Signs: Vital Signs x48h Temp Pulse Resp BP Pulse Ox 07/08/18 08:00 86 16 141/84 H 97 07/08/18 07:00 86 27 H 119/72 07/08/18 06:00 90 26 H 126/67 07/08/18 05:00 37.1 C 92 30 H 141/76 H 97 07/08/18 04:00 93 26 H 141/75 H 07/08/18 03:00 93 32 H 138/74 H 07/08/18 02:00 96 17 146/76 H Weight: Weight 07/06/18 07/07/18 07/08/18 23:59 23:59 23:59 Weight (kg) 86 kg 88 kg 88.5 kg Intake & Output: Intake and Output Totals x24h 07/06/18 07/07/18 07/08/18 23:59 23:59 23:59 Intake Total 3046.447 5942.5 2537.5 Output Total 0 Balance 3046.447 5942.5 2537.5 - Lab Results Lab Results: 07/08/18 04:50 07/08/18 04:50 Other Lab Results: Lab Results x24hrs 07/08/18 07/08/18 07/08/18 Range/Units 07:46 04:50 04:50 WBC 3.7 L (4.8-10.8) x10^3/uL RBC 3.64 L (4.70-6.10) 10^6/uL Hgb 10.5 L (14.0-18.0) g/dL Hct 29.9 L (42.0-52.0) % MCV 82.1 (80.0-94.0) fL MCH 28.9 (27.0-31.0) pg MCHC 35.2 (32.0-36.0) g/dL RDW 14.5 (12.0-15.0) % Plt Count 206 (130-450) 10^3/uL MPV 7.0 L (7.4-11.4) fL Neut # (Auto) 2.8 (1.5-6.6) 10^3/uL Lymph # (Auto) 0.4 L (1.5-3.5) 10^3/uL Tate # (Auto) 0.5 (0.0-1.0) 10^3/uL Eos # (Auto) 0.0 (0.0-0.7) 10^3/uL Baso # (Auto) 0.0 (0.0-0.1) 10^3/uL Absolute Nucleated RBC 0.00 x10^3/uL Nucleated RBC % 0.0 /100WBC Sodium 133 L (135-145) mmol/L Potassium 3.6 (3.5-5.0) mmol/L Chloride 100 L (101-111) mmol/L Carbon Dioxide 25 (21-32) mmol/L Anion Gap 8.0 (6-13) BUN 18 (6-20) mg/dL Creatinine 0.8 (0.6-1.2) mg/dL Estimated GFR (MDRD) 99 (>89) Glucose 188 H (70-100) mg/dL POC Whole Bld Glucose 152 H (70 - 100) mg/dL Calcium 8.2 L (8.5-10.3) mg/dL Magnesium 2.0 (1.7-2.8) mg/dL 07/07/18 07/07/18 07/07/18 Range/Units 20:53 16:51 11:38 WBC (4.8-10.8) x10^3/uL RBC (4.70-6.10) 10^6/uL Hgb (14.0-18.0) g/dL Hct (42.0-52.0) % MCV (80.0-94.0) fL MCH (27.0-31.0) pg MCHC (32.0-36.0) g/dL RDW (12.0-15.0) % Plt Count (130-450) 10^3/uL MPV (7.4-11.4) fL Neut # (Auto) (1.5-6.6) 10^3/uL Lymph # (Auto) (1.5-3.5) 10^3/uL Tate # (Auto) (0.0-1.0) 10^3/uL Eos # (Auto) (0.0-0.7) 10^3/uL Baso # (Auto) (0.0-0.1) 10^3/uL Absolute Nucleated RBC x10^3/uL Nucleated RBC % /100WBC Sodium (135-145) mmol/L Potassium (3.5-5.0) mmol/L Chloride (101-111) mmol/L Carbon Dioxide (21-32) mmol/L Anion Gap (6-13) BUN (6-20) mg/dL Creatinine (0.6-1.2) mg/dL Estimated GFR (MDRD) (>89) Glucose (70-100) mg/dL POC Whole Bld Glucose 305 H 246 H 228 H (70 - 100) mg/dL Calcium (8.5-10.3) mg/dL Magnesium (1.7-2.8) mg/dL - Imaging Results Radiology Imaging: positive: EMP read indepedently - Current Medications Current Medications: Current Medications Generic Name Dose Route Start Last Admin Trade Name Freq PRN Reason Stop Dose Admin Acetaminophen 650 mg 07/06/18 10:57 07/07/18 15:53 Tylenol PO 650 mg Q4HR PRN Administration Pain or Fever > 38C (100.4F) Aspirin 81 mg 07/08/18 09:00 07/08/18 08:18 Ecotrin PO 81 mg DAILY [facility] Administration Atorvastatin Calcium 40 mg 07/07/18 21:00 07/07/18 20:58 Lipitor PO 40 mg QPM [facility] Administration Famotidine 20 mg 07/06/18 21:00 07/08/18 08:18 Pepcid PO 20 mg DAILY [facility] Administration Heparin Sodium (Porcine) 5,000 unit 07/06/18 21:00 07/08/18 09:08 SUBQ 5,000 unit BID [facility] Administration Meropenem 1 gm/ Sodium 100 mls @ 200 mls/hr 07/06/18 19:00 07/08/18 03:25 Chloride IV Infused Q8H [facility] Infusion Sodium Chloride 1,000 mls @ 75 mls/hr 07/07/18 13:29 07/08/18 09:00 Normal Saline 0.9% IV Infused .[id number] [facility] Infusion Vancomycin HCl 1.5 gm/ Sodium 500 mls @ 250 mls/hr 07/07/18 18:00 07/07/18 20:38 Chloride IV Infused Q24H [facility] Infusion Insulin Aspart 3 - 13 unit 07/08/18 08:00 07/08/18 08:03 Novolog SUBQ 3 unit 0800,1200,1700,2100 [facility] Administration Protocol Insulin Glargine 75 unit 07/07/18 21:00 07/08/18 09:07 Lantus Solostar SUBQ 75 unit BID [facility] Administration Pioglitazone HCl 15 mg 07/08/18 09:00 07/08/18 08:18 Actos PO 15 mg DAILY [facility] Administration Polyethylene Glycol 17 gm 07/07/18 09:00 07/08/18 08:19 Miralax PO Not Given DAILY [facility] Saccharomyces Boulardii 250 mg 07/07/18 11:45 07/08/18 08:18 Florastor PO 250 mg BIDWM [facility] Administration Sodium Chloride 10 ml 07/06/18 17:00 07/08/18 08:18 Normal Saline Flush 0.9% IVP 10 ml 0100,0900,1700 [facility] Administration
--- NOTE | 2018-07-08 10:33 | XRAY Report ---
Reason: post op, infection Procedure Date: 07/08/2018 Accession Number: [id number] / [id number] Procedure: XR - Foot 3 View RT CPT Code: FULL RESULT: EXAM: RIGHT FOOT RADIOGRAPHY EXAM DATE: 07/08/2018 10:15 AM. CLINICAL HISTORY: Post op, infection. COMPARISON: None. TECHNIQUE: 3 views. FINDINGS: Partial resection of the fifth metatarsal is noted. At this area there is a small focus of lucency, likely soft tissue air and likely postsurgical. There is an apparent drain in place. Lucencies of the cuboid and lateral cuneiform are noted, but may be partly artifactual due to overlying material. There is gross soft tissue swelling. IMPRESSION: Partial resection of fifth metatarsal. Soft tissue air may be postsurgical. Correlate clinically. Lucencies of the cuboid and lateral cuneiform are noted but may be partly artifactual. Other imaging is available as indicated. [facility]
[2018-07-08] MEDS: MULTIVITAMIN W/MINERALS TABLET PO SCH (16:09)
[2018-07-08] MEDS: ZINC SULFATE 220 MG CAPSULE PO SCH (16:09)
--- NOTE | 2018-07-08 17:14 | PROVIDER PROGRESS NOTE ---
Subjective - Prog Note Date Prog Note Date: 07/08/18 Prog Note Time: 17:12 - Subjective Pt reports feeling: Improved (Patient states improved appetite, no fevers, chills, or /GI symptoms. Malaise and weakness improved significantly.) Subjective: No acute events. Current Medications - Current Medications Current Medications: Active Medications Acetaminophen (Tylenol) 650 mg PO Q4HR PRN PRN Reason: Pain or Fever > 38C (100.4F) Last Admin: 07/07/18 15:53 Dose: 650 mg Aspirin (Ecotrin) 81 mg PO DAILY [facility] Last Admin: 07/08/18 08:18 Dose: 81 mg Atorvastatin Calcium (Lipitor) 40 mg PO QPM [facility] Last Admin: 07/07/18 20:58 Dose: 40 mg Famotidine (Pepcid) 20 mg PO DAILY [facility] Last Admin: 07/08/18 08:18 Dose: 20 mg Heparin Sodium (Porcine) () 5,000 unit SUBQ BID [facility] Last Admin: 07/08/18 09:08 Dose: 5,000 unit Hydromorphone HCl (Dilaudid Inj Syringe) 0.5 mg IVP Q2H PRN PRN Reason: Pain 8 to 10 Meropenem 1 gm/ Sodium (Chloride) 100 mls @ 200 mls/hr IV Q8H [facility] Last Infusion: 07/08/18 12:06 Dose: Infused Sodium Chloride (Normal Saline 0.9%) 1,000 mls @ 75 mls/hr IV .[id number] [facility] Last Admin: 07/08/18 16:09 Dose: Not Given Vancomycin HCl 1.5 gm/ Sodium (Chloride) 500 mls @ 250 mls/hr IV Q24H [facility] Last Infusion: 07/07/18 20:38 Dose: Infused Ibuprofen (Motrin) 600 mg PO Q6HR PRN PRN Reason: Pain 1 to 4 Insulin Aspart (Novolog) 3 - 13 unit SUBQ 0800,1200,1700,2100 [facility]; Protocol Last Admin: 07/08/18 12:43 Dose: 5 unit Insulin Glargine (Lantus Solostar) 75 unit SUBQ BID [facility] Last Admin: 07/08/18 09:07 Dose: 75 unit Multivitamins/Minerals (Theragran M) 1 tab PO DAILYWM [facility] Last Admin: 07/08/18 16:09 Dose: 1 tab Pioglitazone HCl (Actos) 15 mg PO DAILY [facility] Last Admin: 07/08/18 08:18 Dose: 15 mg Polyethylene Glycol (Miralax) 17 gm PO DAILY [facility] Last Admin: 07/08/18 08:19 Dose: Not Given Prochlorperazine Edisylate (Compazine Inj) 10 mg IVP Q6HR PRN PRN Reason: Nausea / Vomiting Saccharomyces Boulardii (Florastor) 250 mg PO BIDWM [facility] Last Admin: 07/08/18 08:18 Dose: 250 mg Sodium Chloride (Normal Saline Flush 0.9%) 10 ml IVP PRN PRN PRN Reason: NEEDED PER PROVIDER ORDERS Sodium Chloride (Normal Saline Flush 0.9%) 10 ml IVP 0100,0900,1700 [facility] Last Admin: 07/08/18 16:16 Dose: 10 ml Zinc Sulfate () 220 mg PO DAILY [facility] Stop: 07/17/18 09:01 Last Admin: 07/08/18 16:09 Dose: 220 mg Zolpidem Tartrate (Ambien) 5 mg PO QPM PRN PRN Reason: Insomnia Aspirin [Ecotrin] 81 mg PO DAILY 01/05/15 Insulin Lispro [Humalog] 20 unit SQ TIDWM MDD 30 units per injection 01/05/15 Empagliflozin [Jardiance] 12.5 mg PO DAILY 08/26/16 Insulin Glargine [Lantus] 70 units SUBQ BID 11/24/16 Atorvastatin [Lipitor] 10 mg PO QPM 02/03/17 Objective - Vital Signs/Intake & Output Vital Signs: Vital Signs x48h Temp Pulse Resp BP Pulse Ox 07/08/18 16:28 36.8 C 80 14 130/76 98 07/08/18 12:49 81 22 134/70 H 97 07/08/18 12:06 37 C Intake & Output: Intake & Output 07/05/18 07/06/18 07/07/18 07/08/18 23:59 23:59 23:59 23:59 Intake Total 3046.447 5942.5 3117.5 Output Total 0 Balance 3046.447 5942.5 3117.5 - Objective General Appearance: positive: No acute distress Eyes Bilateral: positive: Normal inspection Neck: positive: Nml inspection, No JVD, Trachea midline, Thyromegaly. negative: Carotid bruit, Swelling/bruising Respiratory: positive: Chest non-tender, No respiratory distress, Breath sounds nml. negative: Wheezes, Rales Cardiovascular: positive: Regular rate & rhythm, No murmur, No gallop. negative: Irregularly irregular, JVD present, Systolic murmur, Gallop/S4, Friction rub Abdomen: positive: Non-tender, No organomegaly, Nml bowel sounds, No distention. negative: Hepatomegaly, Splenomegaly, Mass Skin: positive: Color nml, No rash, Warm, Other (post operative changes to right foot). negative: Skin rash, Puncture wound Extremities: positive: Other (previous amputation of left foot clean, dry and intact with granulation. Right foot debrided surgical site with granulation and on wound vac with no necrotic or gangrenous borders.) Neurologic/Psychiatric: positive: Oriented x3, CN's nml (2-12) (sensory loss to bilateral feet, to 2 point discrimination, soft touch and pressure.), Other - Lab Results Fish Bones: 07/08/18 04:50 07/08/18 04:50 Other Labs: Lab Results x24hrs 07/08/18 07/08/18 07/08/18 Range/Units 12:03 07:46 04:50 WBC 3.7 L (4.8-10.8) x10^3/uL RBC 3.64 L (4.70-6.10) 10^6/uL Hgb 10.5 L (14.0-18.0) g/dL Hct 29.9 L (42.0-52.0) % MCV 82.1 (80.0-94.0) fL MCH 28.9 (27.0-31.0) pg MCHC 35.2 (32.0-36.0) g/dL RDW 14.5 (12.0-15.0) % Plt Count 206 (130-450) 10^3/uL MPV 7.0 L (7.4-11.4) fL Neut # (Auto) 2.8 (1.5-6.6) 10^3/uL Lymph # (Auto) 0.4 L (1.5-3.5) 10^3/uL Benson # (Auto) 0.5 (0.0-1.0) 10^3/uL Eos # (Auto) 0.0 (0.0-0.7) 10^3/uL Baso # (Auto) 0.0 (0.0-0.1) 10^3/uL Absolute Nucleated RBC 0.00 x10^3/uL Nucleated RBC % 0.0 /100WBC Sodium (135-145) mmol/L Potassium (3.5-5.0) mmol/L Chloride (101-111) mmol/L Carbon Dioxide (21-32) mmol/L Anion Gap (6-13) BUN (6-20) mg/dL Creatinine (0.6-1.2) mg/dL Estimated GFR (MDRD) (>89) Glucose (70-100) mg/dL POC Whole Bld Glucose 182 H 152 H (70 - 100) mg/dL Calcium (8.5-10.3) mg/dL Magnesium (1.7-2.8) mg/dL 07/08/18 07/07/18 Range/Units 04:50 20:53 WBC (4.8-10.8) x10^3/uL RBC (4.70-6.10) 10^6/uL Hgb (14.0-18.0) g/dL Hct (42.0-52.0) % MCV (80.0-94.0) fL MCH (27.0-31.0) pg MCHC (32.0-36.0) g/dL RDW (12.0-15.0) % Plt Count (130-450) 10^3/uL MPV (7.4-11.4) fL Neut # (Auto) (1.5-6.6) 10^3/uL Lymph # (Auto) (1.5-3.5) 10^3/uL Benson # (Auto) (0.0-1.0) 10^3/uL Eos # (Auto) (0.0-0.7) 10^3/uL Baso # (Auto) (0.0-0.1) 10^3/uL Absolute Nucleated RBC x10^3/uL Nucleated RBC % /100WBC Sodium 133 L (135-145) mmol/L Potassium 3.6 (3.5-5.0) mmol/L Chloride 100 L (101-111) mmol/L Carbon Dioxide 25 (21-32) mmol/L Anion Gap 8.0 (6-13) BUN 18 (6-20) mg/dL Creatinine 0.8 (0.6-1.2) mg/dL Estimated GFR (MDRD) 99 (>89) Glucose 188 H (70-100) mg/dL POC Whole Bld Glucose 305 H (70 - 100) mg/dL Calcium 8.2 L (8.5-10.3) mg/dL Magnesium 2.0 (1.7-2.8) mg/dL - Diagnostic Imaging Diagnostic Imaging Results: positive: Final report reviewed ABX Reporting Has patient been on IV antibiotics over the past 48 hours?: Yes Assessment/Plan - Problem List (1) Diabetic foot infection Impression: Ortho service following closely, wound vac as well as wound care following. Currently on IV vanco and merrem with Wcx from surgical specimen pending ID, showing a rare gram variable bacilli. Due to immunocompromised status as a result of very uncontrolled IDDM, patient likely seeded from infected foot to blood stream and now growing G+cocci 2/2 bottles, steptococcus sp. Likely has component of underlying PVD. Currently with a PICC line and would anticipate de- escalation soon. (2) CKD (chronic kidney disease) stage 3, GFR 30-59 ml/min Impression: Improved renal function. IVF's to discontinue. TEZ/Angi resolved with baseline cr 1.0-1.4. Continue with aggressive glycemic control. Component of volume depletion due to recent DKA, currently hyperosmolar and hyperglycemic with pseudohyponatremia out of dka with co2 normal. Avoid nephrotoxic agents, correct lytes. (3) Hyperosmolality syndrome Impression: Improved. pseudohyponatremia. correct underlying lyte d/o, IVF's, glycemic control. Increased Bolus an Basal coverage. (4) Diabetes mellitus, insulin dependent (IDDM), uncontrolled Impression: Improved. Component of patient very insulin resistance for which he previously did not qualify for Insulin pump which needs endocrinology referral from PCP. Hgba1c 13.9%, uncontrolled, nursing educator referral, Actos started, uptititration of lantus to 75 units BID, continue with bolus coverage with HIGH ISS, monitor hyperglycemic excursions in the setting of poor wound healing. Qualifiers: Glycemic state: with hyperglycemia Qualified Code(s): E10.65 - Type 1 diabetes mellitus with hyperglycemia (5) Diabetic neuropathy Impression: Poorly controlled glycemic control with permant nerve damage with neuropathy predisposing to future diabetic foot infections with no sensation that would otherwise prevent this, would start lyrica at 100 mg po daily. Qualifiers: Diabetes mellitus type: type 2 Diabetes mellitus complication detail: diabetic polyneuropathy Qualified Code(s): E11.42 - Type 2 diabetes mellitus with diabetic polyneuropathy
[2018-07-08] MEDS: VANCOMYCIN INJ 1.5 GM in SODIUM CHLORIDE 0.9% 500 ML IV SCH (18:32)
[2018-07-08] MEDS: ATORVASTATIN 40 MG TABLET PO SCH (21:03)
[2018-07-09] MEDS: MEROPENEM 1 GM in SODIUM CHLORIDE 0.9% MINIBAG 100 ML IV SCH (04:30)
[2018-07-09 04:36] LABS: BASOPHILS % (AUTO) 1.1 %; EOSINOPHILS # (AUTO) 0.1 10^3/uL (0.0-0.7); EOSINOPHILS % (AUTO) 2.9 %; HGB - HEMOGLOBIN 10.8 g/dL (14.0-18.0); LYMPHOCYTES # (AUTO) 0.6 10^3/uL (1.5-3.5); LYMPHOCYTES % (AUTO) 17.6 %; MEAN CORPUSCULAR HEMOGLOBIN 28.3 pg (27.0-31.0); MEAN CORPUSCULAR HGB CONC 34.2 g/dL (32.0-36.0); MEAN CORPUSCULAR VOLUME 82.7 fL (80.0-94.0); MEAN PLATELET VOLUME 6.6 fL (7.4-11.4); MONOCYTES # (AUTO) 0.5 10^3/uL (0.0-1.0); MONOCYTES % (AUTO) 14.2 %; NEUTROPHILS # (AUTO) 2.4 10^3/uL (1.5-6.6); NEUTROPHILS % (AUTO) 64.2 %; PLT - PLATELET COUNT 234 10^3/uL (130-450); RED BLOOD COUNT 3.81 10^6/uL (4.70-6.10); RED CELL DISTRIBUTION WIDTH 14.5 % (12.0-15.0); WHITE BLOOD COUNT 3.7 x10^3/uL (4.8-10.8)
[2018-07-09 04:46] LABS: CALCIUM 8.6 mg/dL (8.5-10.3); CREATININE 0.8 mg/dL (0.6-1.2)
[2018-07-09] MEDS: INSULIN ASPART 300 UNIT/3 ML PEN SUBQ SCH ×5 (08:00→20:22)
--- NOTE | 2018-07-09 08:20 | CONSULTATION NOTE ---
DATE OF SERVICE: 07/06/2018 Physician: Antonio Souza MD REASON FOR ADMISSION: An infection of right foot wound. REQUESTING PHYSICIAN OF CONSULTATION: Dr. Flores. HISTORY OF PRESENT ILLNESS: The patient is a 58-year-old male with fragile and labile diabetes, who has had a longstanding ulceration of his midfoot on the right, centered on the lateral aspect of the foot at the level of the fifth metatarsal base. On 06/30/2018, the patient underwent a fairly radical debridement of this area, including removal of the base of the fifth metatarsal for decompression, and underwent a loose closure of tissue and subsequent wound care until he presented back to the office on 07/06/2018 with noted drainage from his wound, which was cultured. He had a mild amount of redness. At this point, the patient was recommended admission to the hospital for more aggressive IV antibiotic treatment and ongoing wound care, possible conversion to wound VAC treatment of his wound. The patient's previous medical history is well documented in my admission history and physical exam from 06/30/2018 and the hospitalist readmission history and physical exam from 07/06/2018. Current orthopedic exam shows a lateral foot incision with nylon sutures that are interrupted and brown serous drainage of minimal amount from the incision area and no gross purulence and with mild superior flap erythema over less than 1 inch diameter away from the incision site. The overall foot swelling is minimal, and the patient does not have sensation nor pain and can move his foot well. IMPRESSION: The patient has ongoing soft tissue infection in his right foot with a timeline that would not indicate that he has osteomyelitis, as he did not have bone involvement at his original surgery 7 days ago. PLAN: Admission to the hospital, IV antibiotics, laboratory management, diabetes management. TD: 07/08/2018 10:18 DOMINIQUE
[2018-07-09] MEDS: HEPARIN 5,000 UNIT/ML VIAL SUBQ SCH ×2 (08:26→20:25)
[2018-07-09] MEDS: PIOGLITAZONE 15 MG TABLET PO SCH (08:26)
[2018-07-09] MEDS: FAMOTIDINE 20 MG TABLET PO SCH (08:26)
[2018-07-09] MEDS: MULTIVITAMIN W/MINERALS TABLET PO SCH (08:26)
[2018-07-09] MEDS: SACCHAROMYCES BOULARDII 250 MG CAPSULE PO SCH ×2 (08:26→17:11)
[2018-07-09] MEDS: ZINC SULFATE 220 MG CAPSULE PO SCH (08:26)
[2018-07-09] MEDS: ASPIRIN EC 81 MG TABLET PO SCH (08:26)
[2018-07-09] MEDS: PREGABALIN 100 MG CAPSULE PO SCH (08:26)
[2018-07-09] MEDS: SODIUM CHLORIDE FLUSH 0.9% 10 ML SYRINGE IVP SCH ×2 (08:27→18:59)
[2018-07-09] MEDS: INSULIN GLARGINE 300 UNIT/3 ML PEN SUBQ SCH ×2 (08:30→20:23)
[2018-07-09] MEDS ORDERED: MEROPENEM 1 GM in SODIUM CHLORIDE 0.9% MINIBAG 100 ML IV SCH ×2 (09:00→12:00)
[2018-07-09] MEDS ORDERED: ZINC SULFATE 220 MG CAPSULE PO SCH (09:00)
[2018-07-09] MEDS: POLYETHYLENE GLYCOL 3350 17 GM PACKET PO SCH (09:08)
--- NOTE | 2018-07-09 11:07 | PROVIDER PROGRESS NOTE ---
Subjective - Prog Note Date Prog Note Date: 07/09/18 Prog Note Time: 11:05 - Subjective Pt reports feeling: Improved Subjective: Patient to have right diabetic foot evaluated by wound care today. On wound vac tolerating well with no fevers, CP, SOB, rash or /GI sx's Current Medications - Current Medications Current Medications: Active Medications Acetaminophen (Tylenol) 650 mg PO Q4HR PRN PRN Reason: Pain or Fever > 38C (100.4F) Last Admin: 07/07/18 15:53 Dose: 650 mg Aspirin (Ecotrin) 81 mg PO DAILY [facility] Last Admin: 07/09/18 08:26 Dose: 81 mg Atorvastatin Calcium (Lipitor) 40 mg PO QPM [facility] Last Admin: 07/08/18 21:03 Dose: 40 mg Famotidine (Pepcid) 20 mg PO DAILY [facility] Last Admin: 07/09/18 08:26 Dose: 20 mg Heparin Sodium (Porcine) () 5,000 unit SUBQ BID [facility] Last Admin: 07/09/18 08:26 Dose: 5,000 unit Hydromorphone HCl (Dilaudid Inj Syringe) 0.5 mg IVP Q2H PRN PRN Reason: Pain 8 to 10 Vancomycin HCl 1.5 gm/ Sodium (Chloride) 500 mls @ 250 mls/hr IV Q24H [facility] Last Infusion: 07/08/18 21:00 Dose: Infused Meropenem 1 gm/ Sodium (Chloride) 100 mls @ 200 mls/hr IV Q8H [facility] Ibuprofen (Motrin) 600 mg PO Q6HR PRN PRN Reason: Pain 1 to 4 Insulin Aspart (Novolog) 3 - 13 unit SUBQ 0800,1200,1700,2100 [facility]; Protocol Last Admin: 07/09/18 08:00 Dose: Not Given Insulin Glargine (Lantus Solostar) 75 unit SUBQ BID [facility] Last Admin: 07/09/18 08:30 Dose: 75 unit Multivitamins/Minerals (Theragran M) 1 tab PO DAILYWM [facility] Last Admin: 07/09/18 08:26 Dose: 1 tab Pioglitazone HCl (Actos) 15 mg PO DAILY [facility] Last Admin: 07/09/18 08:26 Dose: 15 mg Polyethylene Glycol (Miralax) 17 gm PO DAILY [facility] Last Admin: 10/25/18 09:08 Dose: Not Given Pregabalin (Lyrica) 100 mg PO DAILY [facility] Last Admin: 07/09/18 08:26 Dose: 100 mg Prochlorperazine Edisylate (Compazine Inj) 10 mg IVP Q6HR PRN PRN Reason: Nausea / Vomiting Saccharomyces Boulardii (Florastor) 250 mg PO BIDWM [facility] Last Admin: 07/09/18 08:26 Dose: 250 mg Sodium Chloride (Normal Saline Flush 0.9%) 10 ml IVP PRN PRN PRN Reason: NEEDED PER PROVIDER ORDERS Sodium Chloride (Normal Saline Flush 0.9%) 10 ml IVP 0100,0900,1700 [facility] Last Admin: 07/09/18 08:27 Dose: 10 ml Zinc Sulfate () 220 mg PO DAILY [facility] Stop: 07/17/18 09:01 Last Admin: 07/09/18 08:26 Dose: 220 mg Zolpidem Tartrate (Ambien) 5 mg PO QPM PRN PRN Reason: Insomnia Aspirin [Ecotrin] 81 mg PO DAILY 01/05/15 Insulin Lispro [Humalog] 20 unit SQ TIDWM MDD 30 units per injection 01/05/15 Empagliflozin [Jardiance] 12.5 mg PO DAILY 08/26/16 Insulin Glargine [Lantus] 70 units SUBQ BID 11/24/16 Atorvastatin [Lipitor] 10 mg PO QPM 02/03/17 Objective - Vital Signs/Intake & Output Reviewed Vital Signs: Yes Vital Signs: Vital Signs x48h Temp Pulse Resp BP Pulse Ox 07/09/18 09:57 144/74 H 07/09/18 09:00 36.8 C 82 14 168/84 H 96 07/09/18 04:24 37.1 C 82 17 145/79 H 96 Intake & Output: Intake & Output 07/06/18 07/07/18 07/08/18 07/09/18 23:59 23:59 23:59 23:59 Intake Total 3046.447 5942.5 4697.5 1020 Output Total 0 0 Balance 3046.447 5942.5 4697.5 1020 - Objective General Appearance: positive: No acute distress Neck: positive: Thyroid nml, No JVD Respiratory: positive: Chest non-tender, No respiratory distress, Breath sounds nml Cardiovascular: positive: Regular rate & rhythm, No murmur, No gallop Peripheral Pulses: 1+ Dorsalis pedis (R), 2+ Dorsalis pedis (L) Abdomen: positive: Non-tender, No organomegaly, Nml bowel sounds Skin: positive: No rash, Other (post-op changes to right foot) Extremities: positive: Non-tender, No pedal edema, Other (right diabetic foot with no gangrenous or necrotic borders, scant serosanguinous drainage from wound vac) Neurologic/Psychiatric: positive: Oriented x3, Motor nml, Sensory loss - Lab Results Fish Bones: 07/09/18 04:20 07/09/18 04:20 Other Labs: Lab Results x24hrs 07/09/18 07/09/18 07/09/18 Range/Units 08:08 04:20 04:20 WBC 3.7 L (4.8-10.8) x10^3/uL RBC 3.81 L (4.70-6.10) 10^6/uL Hgb 10.8 L (14.0-18.0) g/dL Hct 31.5 L (42.0-52.0) % MCV 82.7 (80.0-94.0) fL MCH 28.3 (27.0-31.0) pg MCHC 34.2 (32.0-36.0) g/dL RDW 14.5 (12.0-15.0) % Plt Count 234 (130-450) 10^3/uL MPV 6.6 L (7.4-11.4) fL Neut # (Auto) 2.4 (1.5-6.6) 10^3/uL Lymph # (Auto) 0.6 L (1.5-3.5) 10^3/uL [place] # (Auto) 0.5 (0.0-1.0) 10^3/uL Eos # (Auto) 0.1 (0.0-0.7) 10^3/uL Baso # (Auto) 0.0 (0.0-0.1) 10^3/uL Absolute Nucleated RBC 0.01 x10^3/uL Nucleated RBC % 0.2 /100WBC Sodium 138 (135-145) mmol/L Potassium 3.7 (3.5-5.0) mmol/L Chloride 101 (101-111) mmol/L Carbon Dioxide 30 (21-32) mmol/L Anion Gap 7.0 (6-13) BUN 20 (6-20) mg/dL Creatinine 0.8 (0.6-1.2) mg/dL Estimated GFR (MDRD) 99 (>89) Glucose 108 H (70-100) mg/dL POC Whole Bld Glucose 96 (70 - 100) mg/dL Calcium 8.6 (8.5-10.3) mg/dL Magnesium 2.0 (1.7-2.8) mg/dL 07/08/18 07/08/18 07/08/18 Range/Units 21:01 17:23 12:03 WBC (4.8-10.8) x10^3/uL RBC (4.70-6.10) 10^6/uL Hgb (14.0-18.0) g/dL Hct (42.0-52.0) % MCV (80.0-94.0) fL MCH (27.0-31.0) pg MCHC (32.0-36.0) g/dL RDW (12.0-15.0) % Plt Count (130-450) 10^3/uL MPV (7.4-11.4) fL Neut # (Auto) (1.5-6.6) 10^3/uL Lymph # (Auto) (1.5-3.5) 10^3/uL [place] # (Auto) (0.0-1.0) 10^3/uL Eos # (Auto) (0.0-0.7) 10^3/uL Baso # (Auto) (0.0-0.1) 10^3/uL Absolute Nucleated RBC x10^3/uL Nucleated RBC % /100WBC Sodium (135-145) mmol/L Potassium (3.5-5.0) mmol/L Chloride (101-111) mmol/L Carbon Dioxide (21-32) mmol/L Anion Gap (6-13) BUN (6-20) mg/dL Creatinine (0.6-1.2) mg/dL Estimated GFR (MDRD) (>89) Glucose (70-100) mg/dL POC Whole Bld Glucose 324 H 187 H 182 H (70 - 100) mg/dL Calcium (8.5-10.3) mg/dL Magnesium (1.7-2.8) mg/dL ABX Reporting Has patient been on IV antibiotics over the past 48 hours?: Yes Assessment/Plan - Problem List (1) Bacteremia due to Streptococcus Impression: Microbiology has confirmed a streptococcus sp, no-hemolytic. Also has mixed skin mikhail; LORELEI stap, liklely contaminant. Would still De-escalate to IV rocephin. Repeat blood cultures x 2. ECHO on 07/06 shows no vegetation and EF 65-75%, Diastolic dysfunction grade 1, no valvulopathy. Home health for home infusions to picc line. Repeat blood cultures. (2) Diabetic foot infection Impression: No evidence of OM on xrays. Ortho/wound care service following. Currently on IV vanco and merrem with Wcx from surgical specimen pending ID, showing a rare gram variable bacilli. Likely has component of underlying PVD. Currently with a PICC line and would anticipate de-escalation soon. (3) CKD (chronic kidney disease) stage 3, GFR 30-59 ml/min Impression: Diabetic nephropathy. Improved renal function. Cr now at 0.8. Continue with aggressive glycemic control. Component of volume depletion due to recent DKA, hyperosmolar and hyperglycemic state with pseudohyponatremia now resolved. Continue to monitor for electrolyte d/o and Avoid nephrotoxic agents. (4) Diabetes mellitus, insulin dependent (IDDM), uncontrolled Impression: Improved. Component of patient very insulin resistance for which he previously did not qualify for Insulin pump which needs endocrinology referral from PCP. Hgba1c 13.9%, uncontrolled, hospice educator mentions he was on 20 units of insulin BID withmeals at home, however I suspect non-compliance as he is an active mabry and likely is inconvenienced by frequent bolus and basal insulin coverage regimen. Recommended to improve glycemic control with Humalog 7 units TID/AC. Continue with Actos and lantus to 75 units BID, continue with correctional bolus coverage with HIGH ISS, monitor hyperglycemic excursions in the setting of poor wound healing. Qualifiers: Glycemic state: with hyperglycemia Qualified Code(s): E10.65 - Type 1 diabetes mellitus with hyperglycemia (5) Diabetic neuropathy Impression: Poorly controlled glycemic control with permant nerve damage with neuropathy predisposing to future diabetic foot infections with no sensation that would otherwise prevent this, patient tolerating lyrica at 100 mg po daily. Qualifiers: Diabetes mellitus type: type 2 Diabetes mellitus complication detail: diabetic polyneuropathy Qualified Code(s): E11.42 - Type 2 diabetes mellitus with diabetic polyneuropathy
[2018-07-09] MEDS: cefTRIAXone 1 GM in SODIUM CHLORIDE 0.9% MINIBAG 100 ML IV SCH (12:33)
[2018-07-09] MEDS: SODIUM CHLORIDE FLUSH 0.9% 10 ML SYRINGE IVP PRN (13:37)
[2018-07-09] MEDS: ATORVASTATIN 40 MG TABLET PO SCH (20:22)
[2018-07-10] MEDS: SODIUM CHLORIDE FLUSH 0.9% 10 ML SYRINGE IVP SCH ×3 (00:25→17:13)
[2018-07-10] MEDS: SODIUM CHLORIDE FLUSH 0.9% 10 ML SYRINGE IVP PRN ×2 (05:35→13:54)
[2018-07-10 05:59] LABS: EOSINOPHILS # (AUTO) 0.2 10^3/uL (0.0-0.7); EOSINOPHILS % (AUTO) 3.9 %; HGB - HEMOGLOBIN 11.3 g/dL (14.0-18.0); LYMPHOCYTES % (AUTO) 22.1 %; MEAN CORPUSCULAR HEMOGLOBIN 28.4 pg (27.0-31.0); MEAN CORPUSCULAR HGB CONC 34.4 g/dL (32.0-36.0); MEAN CORPUSCULAR VOLUME 82.8 fL (80.0-94.0); MEAN PLATELET VOLUME 6.8 fL (7.4-11.4); MONOCYTES # (AUTO) 0.5 10^3/uL (0.0-1.0); MONOCYTES % (AUTO) 11.1 %; NEUTROPHILS # (AUTO) 2.7 10^3/uL (1.5-6.6); NEUTROPHILS % (AUTO) 61.9 %; PLT - PLATELET COUNT 287 10^3/uL (130-450); RED BLOOD COUNT 3.99 10^6/uL (4.70-6.10); RED CELL DISTRIBUTION WIDTH 14.4 % (12.0-15.0); WHITE BLOOD COUNT 4.4 x10^3/uL (4.8-10.8)
[2018-07-10 06:06] LABS: CREATININE 0.8 mg/dL (0.6-1.2)
--- NOTE | 2018-07-10 08:11 | PROVIDER PROGRESS NOTE ---
Subjective - Prog Note Date Prog Note Date: 07/10/18 Prog Note Time: 08:00 - Subjective Pt reports feeling: Improved Subjective: Patient feels much better with no acute events, no fevers, of ivf's, MAC service has seen patient with recs. On wound vac, has PICC line receiving IV abx, blood cultures + strept sp. not pneumoniae. Current Medications - Current Medications Current Medications: Active Medications Acetaminophen (Tylenol) 650 mg PO Q4HR PRN PRN Reason: Pain or Fever > 38C (100.4F) Last Admin: 07/07/18 15:53 Dose: 650 mg Aspirin (Ecotrin) 81 mg PO DAILY [facility] Last Admin: 07/09/18 08:26 Dose: 81 mg Atorvastatin Calcium (Lipitor) 40 mg PO QPM [facility] Last Admin: 07/09/18 20:22 Dose: 40 mg Famotidine (Pepcid) 20 mg PO DAILY [facility] Last Admin: 07/09/18 08:26 Dose: 20 mg Heparin Sodium (Porcine) () 5,000 unit SUBQ BID [facility] Last Admin: 07/09/18 20:25 Dose: 5,000 unit Hydromorphone HCl (Dilaudid Inj Syringe) 0.5 mg IVP Q2H PRN PRN Reason: Pain 8 to 10 Ceftriaxone Sodium 1 gm/ (Sodium Chloride) 100 mls @ 200 mls/hr IV Q24H [facility] Last Infusion: 07/09/18 13:05 Dose: Infused Ibuprofen (Motrin) 600 mg PO Q6HR PRN PRN Reason: Pain 1 to 4 Insulin Aspart (Novolog) 3 - 13 unit SUBQ 0800,1200,1700,2100 [facility]; Protocol Last Admin: 07/09/18 20:22 Dose: 7 unit Insulin Aspart (Novolog) 7 unit SUBQ TIDWM [facility] Last Admin: 07/09/18 17:10 Dose: 7 unit Insulin Glargine (Lantus Solostar) 75 unit SUBQ BID [facility] Last Admin: 07/09/18 20:23 Dose: 75 unit Multivitamins/Minerals (Theragran M) 1 tab PO DAILYWM [facility] Last Admin: 07/09/18 08:26 Dose: 1 tab Pioglitazone HCl (Actos) 15 mg PO DAILY [facility] Last Admin: 07/09/18 08:26 Dose: 15 mg Polyethylene Glycol (Miralax) 17 gm PO DAILY [facility] Last Admin: 07/09/18 09:08 Dose: Not Given Pregabalin (Lyrica) 100 mg PO DAILY [facility] Last Admin: 07/09/18 08:26 Dose: 100 mg Prochlorperazine Edisylate (Compazine Inj) 10 mg IVP Q6HR PRN PRN Reason: Nausea / Vomiting Saccharomyces Boulardii (Florastor) 250 mg PO BIDWM [facility] Last Admin: 07/09/18 17:11 Dose: 250 mg Sodium Chloride (Normal Saline Flush 0.9%) 10 ml IVP PRN PRN PRN Reason: NEEDED PER PROVIDER ORDERS Last Admin: 07/10/18 05:35 Dose: 30 ml Sodium Chloride (Normal Saline Flush 0.9%) 10 ml IVP 0100,0900,1700 [facility] Last Admin: 07/10/18 00:25 Dose: 10 ml Zinc Sulfate () 220 mg PO DAILY [facility] Stop: 07/17/18 09:01 Last Admin: 07/09/18 08:26 Dose: 220 mg Zolpidem Tartrate (Ambien) 5 mg PO QPM PRN PRN Reason: Insomnia Aspirin [Ecotrin] 81 mg PO DAILY 01/05/15 Insulin Lispro [Humalog] 20 unit SQ TIDWM MDD 30 units per injection 01/05/15 Empagliflozin [Jardiance] 12.5 mg PO DAILY 08/26/16 Insulin Glargine [Lantus] 70 units SUBQ BID 11/24/16 Atorvastatin [Lipitor] 10 mg PO QPM 02/03/17 Objective - Vital Signs/Intake & Output Reviewed Vital Signs: Yes Vital Signs: Vital Signs x48h Temp Pulse Resp BP Pulse Ox 07/10/18 08:05 36.5 C 77 18 149/69 H 97 07/10/18 04:55 36.9 C 83 20 151/75 H 97 07/10/18 00:30 36.7 C 76 20 147/67 H 98 Intake & Output: Intake & Output 07/07/18 07/08/18 07/09/18 07/10/18 23:59 23:59 23:59 23:59 Intake Total 5942.5 4697.5 1670 220 Output Total 0 0 Balance 5942.5 4697.5 1670 220 - Objective General Appearance: positive: No acute distress ENT: positive: Other (mild conj pallor) Neck: positive: Nml inspection, Thyroid nml, No JVD, Trachea midline Respiratory: positive: Chest non-tender, No respiratory distress, Breath sounds nml Cardiovascular: positive: Regular rate & rhythm, No murmur, No gallop Peripheral Pulses: 1+ Dorsalis pedis (R), 2+ Dorsalis pedis (L) Abdomen: positive: Non-tender, No organomegaly, Nml bowel sounds, No distention Skin: positive: No rash, Warm Extremities: positive: Non-tender, Full ROM, Nml appearance, Other (right diabetic surgical site C/D/I on wound vac scant drainage). negative: Pedal edema Neurologic/Psychiatric: positive: Oriented x3, Mood/affect nml, Weakness, Sensory loss - Lab Results Fish Bones: 07/10/18 05:44 07/10/18 05:44 Other Labs: Lab Results x24hrs 07/10/18 07/10/18 07/10/18 Range/Units 07:37 05:44 05:44 WBC 4.4 L (4.8-10.8) x10^3/uL RBC 3.99 L (4.70-6.10) 10^6/uL Hgb 11.3 L (14.0-18.0) g/dL Hct 33.0 L (42.0-52.0) % MCV 82.8 (80.0-94.0) fL MCH 28.4 (27.0-31.0) pg MCHC 34.4 (32.0-36.0) g/dL RDW 14.4 (12.0-15.0) % Plt Count 287 (130-450) 10^3/uL MPV 6.8 L (7.4-11.4) fL Neut # (Auto) 2.7 (1.5-6.6) 10^3/uL Lymph # (Auto) 1.0 L (1.5-3.5) 10^3/uL [place] # (Auto) 0.5 (0.0-1.0) 10^3/uL Eos # (Auto) 0.2 (0.0-0.7) 10^3/uL Baso # (Auto) 0.0 (0.0-0.1) 10^3/uL Absolute Nucleated RBC 0.00 x10^3/uL Nucleated RBC % 0.1 /100WBC Sodium 138 (135-145) mmol/L Potassium 3.8 (3.5-5.0) mmol/L Chloride 97 L (101-111) mmol/L Carbon Dioxide 32 (21-32) mmol/L Anion Gap 9.0 (6-13) BUN 21 H (6-20) mg/dL Creatinine 0.8 (0.6-1.2) mg/dL Estimated GFR (MDRD) 99 (>89) Glucose 99 (70-100) mg/dL POC Whole Bld Glucose 88 (70 - 100) mg/dL Calcium 9.0 (8.5-10.3) mg/dL 07/09/18 07/09/18 07/09/18 Range/Units 20:14 17:08 11:48 WBC (4.8-10.8) x10^3/uL RBC (4.70-6.10) 10^6/uL Hgb (14.0-18.0) g/dL Hct (42.0-52.0) % MCV (80.0-94.0) fL MCH (27.0-31.0) pg MCHC (32.0-36.0) g/dL RDW (12.0-15.0) % Plt Count (130-450) 10^3/uL MPV (7.4-11.4) fL Neut # (Auto) (1.5-6.6) 10^3/uL Lymph # (Auto) (1.5-3.5) 10^3/uL [place] # (Auto) (0.0-1.0) 10^3/uL Eos # (Auto) (0.0-0.7) 10^3/uL Baso # (Auto) (0.0-0.1) 10^3/uL Absolute Nucleated RBC x10^3/uL Nucleated RBC % /100WBC Sodium (135-145) mmol/L Potassium (3.5-5.0) mmol/L Chloride (101-111) mmol/L Carbon Dioxide (21-32) mmol/L Anion Gap (6-13) BUN (6-20) mg/dL Creatinine (0.6-1.2) mg/dL Estimated GFR (MDRD) (>89) Glucose (70-100) mg/dL POC Whole Bld Glucose 268 H 180 H 188 H (70 - 100) mg/dL Calcium (8.5-10.3) mg/dL 07/09/18 Range/Units 08:08 WBC (4.8-10.8) x10^3/uL RBC (4.70-6.10) 10^6/uL Hgb (14.0-18.0) g/dL Hct (42.0-52.0) % MCV (80.0-94.0) fL MCH (27.0-31.0) pg MCHC (32.0-36.0) g/dL RDW (12.0-15.0) % Plt Count (130-450) 10^3/uL MPV (7.4-11.4) fL Neut # (Auto) (1.5-6.6) 10^3/uL Lymph # (Auto) (1.5-3.5) 10^3/uL [place] # (Auto) (0.0-1.0) 10^3/uL Eos # (Auto) (0.0-0.7) 10^3/uL Baso # (Auto) (0.0-0.1) 10^3/uL Absolute Nucleated RBC x10^3/uL Nucleated RBC % /100WBC Sodium (135-145) mmol/L Potassium (3.5-5.0) mmol/L Chloride (101-111) mmol/L Carbon Dioxide (21-32) mmol/L Anion Gap (6-13) BUN (6-20) mg/dL Creatinine (0.6-1.2) mg/dL Estimated GFR (MDRD) (>89) Glucose (70-100) mg/dL POC Whole Bld Glucose 96 (70 - 100) mg/dL Calcium (8.5-10.3) mg/dL - Other Results/Comments Other Results/Comments: per MAC report: On 07/09: Wound evaluated with Dr. Souza at bedside, L foot edematous from ankle down, very warm to touch, scant dark red drainage via wound vac since yesterday. Dr. Souza removed sutures and did minor sharp debriedment producing bright red blood at bedside exposing devitalized muscle, tendon and fat. Irrigated and controlled bleeding with pressure, applied moist gauze dressing with ABD cover. Patient reports difficulty ambulating in BR r/t slippery tiles with use of crutches, Pt indicated that he uses roz shoe at home, which shows sign of wear over area of skin breakdown, applied offloading foam to roz shoe and instructed pt to wear when OOB. Will evaluate tomorrow and possibly initiate vac therapy again if appropriate. ABX Reporting Has patient been on IV antibiotics over the past 48 hours?: Yes Assessment/Plan - Problem List (1) Bacteremia due to Streptococcus Impression: Blood cultures confirmed to be Streptococcus sp. other than pneumoniae; S. pyogens or agalactiae. sensitivities pending, although likely sensitive to cephalosporins. ECHO was neg for veggies on 07/06 with EF 65-75%, grade 1 DD. Continue with IV rocephin 1 g IV daily via PICC line would likely continue for another 5 weeks, repeat blood cultures ordered on 07/09. (2) Diabetic foot infection Impression: Continue with IV rocephin, wound cultures taken on 06/30 shows rare gram variable bacilli still not identified. Patient had a sharp debridement 07/09, per MAC eval Patient reports difficulty ambulating in BR r/t slippery tiles with use of crutches, Pt indicated that he uses roz shoe at home, which shows sign of wear over area of skin breakdown, applied offloading foam to roz shoe and instructed pt to wear when OOB. Will evaluate today and possibly initiate vac therapy again if appropriate. Will likely require approximately 6 week of total IV abx. (3) Diabetes mellitus, insulin dependent (IDDM), uncontrolled Impression: Much improved after bolus humalog adjusted to 7 units TID/AC. On lantus 75 units BID along with actos, glycemic control to continue. Insulin pump to be approved as outpatient. Glycemic control needed for good wound healing of recently debrided right foot with a sharp debridement done 07/09. Qualifiers: Glycemic state: with hyperglycemia Qualified Code(s): E10.65 - Type 1 diabetes mellitus with hyperglycemia (4) Diabetic neuropathy Impression: continue with Lyrica 100 mg po daily. Qualifiers: Diabetes mellitus type: type 2 Diabetes mellitus complication detail: diabetic polyneuropathy Qualified Code(s): E11.42 - Type 2 diabetes mellitus with diabetic polyneuropathy
[2018-07-10] MEDS: INSULIN ASPART 300 UNIT/3 ML PEN SUBQ SCH ×7 (08:22→21:15)
[2018-07-10] MEDS: PREGABALIN 100 MG CAPSULE PO SCH (08:23)
[2018-07-10] MEDS: FAMOTIDINE 20 MG TABLET PO SCH (08:23)
[2018-07-10] MEDS: ASPIRIN EC 81 MG TABLET PO SCH (08:23)
[2018-07-10] MEDS: MULTIVITAMIN W/MINERALS TABLET PO SCH (08:23)
[2018-07-10] MEDS: SACCHAROMYCES BOULARDII 250 MG CAPSULE PO SCH ×2 (08:23→17:13)
[2018-07-10] MEDS: ZINC SULFATE 220 MG CAPSULE PO SCH (08:23)
[2018-07-10] MEDS: POLYETHYLENE GLYCOL 3350 17 GM PACKET PO SCH (08:24)
[2018-07-10] MEDS: INSULIN GLARGINE 300 UNIT/3 ML PEN SUBQ SCH ×2 (08:31→21:20)
[2018-07-10] MEDS: HEPARIN 5,000 UNIT/ML VIAL SUBQ SCH ×2 (08:32→21:11)
[2018-07-10 08:46] LABS: % IRON SATURATION 21 % (20-50); CHOL/HDL RATIO 7.6 (<5.0); CHOLESTEROL 145 mg/dL; HDL CHOLESTEROL 19 mg/dL; IRON 43 ug/dL (45-182); LDL CHOLESTEROL,CALCULATED 71 mg/dL; LDL/HDL RATIO 3.7 (<3.6); TOTAL IRON BINDING CAPACITY 206 ug/dL (250-450); TRANSFERRIN 147 mg/dL (180-329); VLDL CHOLESTEROL 55 mg/dL
[2018-07-10] MEDS: PIOGLITAZONE 15 MG TABLET PO SCH (09:41)
--- NOTE | 2018-07-10 10:12 | PROVIDER PROGRESS NOTE ---
Subjective - General Admit Date: 07/06/18 Procedure Date: 06/30/18 Post Op Days: 10 Procedure Performed: 06/30/2018: partial excision of 5th Metatarsal base and wound closure - Review of Systems Wound/Incisions: positive: Drainage (very little drainage, and base is showing granulation), Erythema improving Musculoskeletal: positive: Joint pain, Joint swelling Psychiatric: positive: No symptoms Objective - Patient Data Reviewed Vital Signs: Yes Vital Signs: Vital Signs x48h Temp Pulse Resp BP Pulse Ox 07/10/18 08:05 36.5 C 77 18 149/69 H 97 07/10/18 04:55 36.9 C 83 20 151/75 H 97 Weight: Weight 07/08/18 07/09/18 07/10/18 23:59 23:59 23:59 Weight (kg) 88.5 kg 87.5 kg 87.5 kg Intake & Output: Intake and Output Totals x24h 07/08/18 07/09/18 07/10/18 23:59 23:59 23:59 Intake Total 4697.5 1670 460 Output Total 0 Balance 4697.5 1670 460 - Lab Results Lab Results: 07/10/18 05:44 07/10/18 05:44 Other Lab Results: Lab Results x24hrs 07/10/18 07/10/18 07/10/18 Range/Units 07:37 05:54 05:44 WBC 4.4 L (4.8-10.8) x10^3/uL RBC 3.99 L (4.70-6.10) 10^6/uL Hgb 11.3 L (14.0-18.0) g/dL Hct 33.0 L (42.0-52.0) % MCV 82.8 (80.0-94.0) fL MCH 28.4 (27.0-31.0) pg MCHC 34.4 (32.0-36.0) g/dL RDW 14.4 (12.0-15.0) % Plt Count 287 (130-450) 10^3/uL MPV 6.8 L (7.4-11.4) fL Neut # (Auto) 2.7 (1.5-6.6) 10^3/uL Lymph # (Auto) 1.0 L (1.5-3.5) 10^3/uL [place] # (Auto) 0.5 (0.0-1.0) 10^3/uL Eos # (Auto) 0.2 (0.0-0.7) 10^3/uL Baso # (Auto) 0.0 (0.0-0.1) 10^3/uL Absolute Nucleated RBC 0.00 x10^3/uL Nucleated RBC % 0.1 /100WBC Sodium (135-145) mmol/L Potassium (3.5-5.0) mmol/L Chloride (101-111) mmol/L Carbon Dioxide (21-32) mmol/L Anion Gap (6-13) BUN (6-20) mg/dL Creatinine (0.6-1.2) mg/dL Estimated GFR (MDRD) (>89) Glucose (70-100) mg/dL POC Whole Bld Glucose 88 (70 - 100) mg/dL Calcium (8.5-10.3) mg/dL Iron 43 L (45-182) ug/dL TIBC 206 L (250-450) ug/dL % Saturation 21 (20-50) % Transferrin 147 L (180-329) mg/dL Triglycerides 275 H ( - 149) mg/dL Cholesterol 145 ( - 199) mg/dL LDL Cholesterol, Calc 71 ( - 129) mg/dL VLDL Cholesterol 55 mg/dL HDL Cholesterol 19 L (60 - ) mg/dL LDL/HDL Ratio 3.7 (<3.6) Cholesterol/HDL Ratio 7.6 (<5.0) 07/10/18 07/09/18 07/09/18 Range/Units 05:44 20:14 17:08 WBC (4.8-10.8) x10^3/uL RBC (4.70-6.10) 10^6/uL Hgb (14.0-18.0) g/dL Hct (42.0-52.0) % MCV (80.0-94.0) fL MCH (27.0-31.0) pg MCHC (32.0-36.0) g/dL RDW (12.0-15.0) % Plt Count (130-450) 10^3/uL MPV (7.4-11.4) fL Neut # (Auto) (1.5-6.6) 10^3/uL Lymph # (Auto) (1.5-3.5) 10^3/uL [place] # (Auto) (0.0-1.0) 10^3/uL Eos # (Auto) (0.0-0.7) 10^3/uL Baso # (Auto) (0.0-0.1) 10^3/uL Absolute Nucleated RBC x10^3/uL Nucleated RBC % /100WBC Sodium 138 (135-145) mmol/L Potassium 3.8 (3.5-5.0) mmol/L Chloride 97 L (101-111) mmol/L Carbon Dioxide 32 (21-32) mmol/L Anion Gap 9.0 (6-13) BUN 21 H (6-20) mg/dL Creatinine 0.8 (0.6-1.2) mg/dL Estimated GFR (MDRD) 99 (>89) Glucose 99 (70-100) mg/dL POC Whole Bld Glucose 268 H 180 H (70 - 100) mg/dL Calcium 9.0 (8.5-10.3) mg/dL Iron (45-182) ug/dL TIBC (250-450) ug/dL % Saturation (20-50) % Transferrin (180-329) mg/dL Triglycerides ( - 149) mg/dL Cholesterol ( - 199) mg/dL LDL Cholesterol, Calc ( - 129) mg/dL VLDL Cholesterol mg/dL HDL Cholesterol (60 - ) mg/dL LDL/HDL Ratio (<3.6) Cholesterol/HDL Ratio (<5.0) 07/09/ Range/Units 11:48 WBC (4.8-10.8) x10^3/uL RBC (4.70-6.10) 10^6/uL Hgb (14.0-18.0) g/dL Hct (42.0-52.0) % MCV (80.0-94.0) fL MCH (27.0-31.0) pg MCHC (32.0-36.0) g/dL RDW (12.0-15.0) % Plt Count (130-450) 10^3/uL MPV (7.4-11.4) fL Neut # (Auto) (1.5-6.6) 10^3/uL Lymph # (Auto) (1.5-3.5) 10^3/uL [place] # (Auto) (0.0-1.0) 10^3/uL Eos # (Auto) (0.0-0.7) 10^3/uL Baso # (Auto) (0.0-0.1) 10^3/uL Absolute Nucleated RBC x10^3/uL Nucleated RBC % /100WBC Sodium (135-145) mmol/L Potassium (3.5-5.0) mmol/L Chloride (101-111) mmol/L Carbon Dioxide (21-32) mmol/L Anion Gap (6-13) BUN (6-20) mg/dL Creatinine (0.6-1.2) mg/dL Estimated GFR (MDRD) (>89) Glucose (70-100) mg/dL POC Whole Bld Glucose 188 H (70 - 100) mg/dL Calcium (8.5-10.3) mg/dL Iron (45-182) ug/dL TIBC (250-450) ug/dL % Saturation (20-50) % Transferrin (180-329) mg/dL Triglycerides ( - 149) mg/dL Cholesterol ( - 199) mg/dL LDL Cholesterol, Calc ( - 129) mg/dL VLDL Cholesterol mg/dL HDL Cholesterol (60 - ) mg/dL LDL/HDL Ratio (<3.6) Cholesterol/HDL Ratio (<5.0) - Current Medications Current Medications: Current Medications Generic Name Dose Route Start Last Admin Trade Name Freq PRN Reason Stop Dose Admin Acetaminophen 650 mg 07/06/18 10:57 07/07/18 15:53 Tylenol PO 650 mg Q4HR PRN Administration Pain or Fever > 38C (100.4F) Aspirin 81 mg 07/08/18 09:00 07/10/18 08:23 Ecotrin PO 81 mg DAILY VERONICA Administration Atorvastatin Calcium 40 mg 07/07/18 21:00 07/09/18 20:22 Lipitor PO 40 mg QPM VERONICA Administration Famotidine 20 mg 07/06/18 21:00 07/10/18 08:23 Pepcid PO 20 mg DAILY VERONICA Administration Heparin Sodium (Porcine) 5,000 unit 07/06/18 21:00 07/10/18 08:32 SUBQ 5,000 unit BID VERONICA Administration Ceftriaxone Sodium 1 gm/ 100 mls @ 200 mls/hr 07/09/18 12:00 07/09/18 13:05 Sodium Chloride IV Infused Q24H [facility] Infusion Insulin Aspart 3 - 13 unit 07/08/18 08:00 07/10/18 08:22 Novolog SUBQ Not Given 0800,1200,1700,2100 [facility] Protocol Insulin Aspart 7 unit 07/09/18 17:00 07/10/18 08:30 Novolog SUBQ [address] [facility] Administration Insulin Glargine 75 unit 07/07/18 21:00 07/10/18 08:31 Lantus Solostar SUBQ 75 unit BID VERONICA Administration Multivitamins/Minerals 1 tab 07/08/18 16:00 07/10/18 08:23 Theragran M PO [address] [facility] Administration Pioglitazone HCl 15 mg 07/08/18 09:00 07/10/18 09:41 Actos PO 15 mg DAILY VERONICA Administration Polyethylene Glycol 17 gm 07/07/18 09:00 07/10/18 08:24 Miralax PO Not Given DAILY [facility] Pregabalin 100 mg 07/09/18 09:00 07/10/18 08:23 Lyrica PO 100 mg DAILY VERONICA Administration Saccharomyces Boulardii 250 mg 07/07/18 11:45 07/10/18 08:23 Florastor PO 250 mg BIDWM VERONICA Administration Sodium Chloride 10 ml 07/06/18 10:57 07/10/18 05:35 Normal Saline Flush 0.9% IVP 30 ml PRN PRN Administration NEEDED PER PROVIDER ORDERS Sodium Chloride 10 ml 07/06/18 17:00 07/10/18 08:42 Normal Saline Flush 0.9% IVP 10 ml 0100,0900,1700 [facility] Administration Zinc Sulfate 220 mg 07/08/18 16:00 07/10/18 08:23 PO 07/17/18 09:01 220 mg DAILY VERONICA Administration - Physical Exam Wound/Incisions: positive: No drainage, Erythema improving General Appearance: positive: No acute distress Skin: positive: Color nml, No rash, Warm, Dry, Other (wound base is viable tissue. No purulence. skin edges with some maceration) Extremities: positive: Non-tender Neurologic/Psychiatric: positive: Oriented x3 Impression/Plan - Problem List Problem List: Ortho: pt to have wound vac placed.discussed care with Hospitalist. Agree with poss. d/c for home med use. and wound care Return to ortho clinic within 5 days.
--- NOTE | 2018-07-10 11:48 | DISCHARGE SUMMARY ---
"Discharge Summary Admit Date: 07/06/18 Discharge Date: 07/11/18 Discharging Provider: Dr. Gray Primary Care Provider: Dr. Alvarez Code Status: Attempt Resuscitation Condition at Discharge: Good Discharge Disposition: 01 Home, Self Care - DIAGNOSES Admission Diagnoses: 1. DKA 2. IDDM uncontrolled 3. Diabetic foot infection 4. Tachycardia 5. DM Neuropathy 6. TEZ sec to severe dehydration from #1 Discharge Diagnoses with Status of Each Condition: (1) Bacteremia due to Streptococcus Impression: Resolving Blood cultures confirmed to be Streptococcus sp. other than pneumoniae; S. pyogens or agalactiae. sensitivities pending, although likely sensitive to cephalosporins. ECHO was neg for veggies on 07/06 with EF 65-75%, grade 1 DD. Repeat Blood cultures on 07/09 show NGTD after 1 day. Continue with IV rocephin 1 g IV daily via PICC line would likely continue for another 5 weeks. (2) Diabetic foot infection Impression: Improved Continue with IV rocephin, wound cultures taken on 06/30 shows rare gram variable bacilli still not identified. Patient had a sharp debridement 07/09, per MAC eval Patient reports difficulty ambulating in BR r/t slippery tiles with use of crutches, Pt indicated that he uses roz shoe at home, which shows sign of wear over area of skin breakdown, applied offloading foam to roz shoe and instructed pt to wear when OOB. Will evaluate today and possibly initiate vac therapy again if appropriate. Will likely require approximately 6 week of total IV abx. (3) Diabetes mellitus, insulin dependent (IDDM), uncontrolled Impression: Improved Much improved after bolus humalog adjusted to 7 units TID/AC. On lantus 75 units BID along with actos, glycemic control to continue. Insulin pump to be approved as outpatient. Glycemic control needed for good wound healing of recently debrid ed right foot with a sharp debridement done 07/09. Qualifiers: Glycemic state: with hyperglycemia Qualified Code(s): E10.65 - Type 1 diabetes mellitus with hyperglycemia (4) Diabetic neuropathy Impression: Stable continue with Lyrica 100 mg po daily. Qualifiers: Diabetes mellitus type: type 2 Diabetes mellitus complication detail: diabetic polyneuropathy Qualified Code(s): E11.42 - Type 2 diabetes mellitus with diabetic polyneuropathy 5). Tachycardia--Resolved 6) TEZ--Resolved 7) DKA--Resolved 8) Iron def anemia; stable 9) Hypertriglyceredemia; stable 10) HTN; stable - HPI History of Present Illness: 58 y/o poorly controlled IDDM who p/w DKA, hyperosmolar state, electrolyte d/o and TEZ precipitated by a right diabetic foot infection which was being managed by Ortho Dr. Souza at office who gave recent elective surgery of the right foot. At Dr. Souza office patient had fevers, tachycardia and was directly admitted to ICU for DKA (1st occurrence). Patient mentions DM-neuropathy for several years and does not take neurontin or lyrica. 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 States he is numbed from his feet to his inguinal area. - CONSULTS | PROCEDURES Consultations: Dr. Bean and Wound care SHIP MANAGER Procedures: surgical wound sharp debridement with wound vac [facility] - HOSPITAL COURSE Hospital Course: Patient admitted for DKA and right diabetic foot infection, placed on empiric IV vanco and merrem, was found to have streptococcus non-hemolytic bacteremia (non- S. pneumoniae) with an unremarkable ECHO on 07/06 showing a grade 1 DD with EF 65-75% w/o evidence of veggies. Blood cultures confirmed to be Streptococcus sp. other than pneumoniae; S. pyogens or agalactiae, sensitivities pending, although likely sensitive to cephalosporins. Repeat Blood cultures on 07/09 show NGTD after 1 day. Continue with IV rocephin 1 g IV daily via PICC line would likely continue for another 5 weeks. Patient was placed on aggressive glycemic control with adjustments of bolus/basal coverage, was eventually taken off insulin gtt, Hgba1C 13.9%. Diabetic education and teaching was instituted and insulin pump tx was initiated by PCP per patient. Patient had bedside surgical debridement by Dr. Souza ortho service and wound care assisted with wound vac placement. Patient had Acute renal insufficiency with a hyperosmolar state which resolved. WBC was normal on discharge. LA levels were initially high and normalized now. E lectrolyte disturbances was seen with DKA and hyperosmolar state now normal now. Patient was started on actos to improve glycemic control as well as lyrica for his diabetic neuropathy. Patient with hypertriglyceremia seen as well as confirmed ERMELINDA, started on ferrous sulfate. Patient to continue with wound vac as per wound care and Ortho recs as well as continued IV abx via PICC line for additional 5 weeks. Diabetic education and [facility] clinic follow up. Will advise on Novolog 7 units TID/AC plus correctional ISS to ensure glycemic control. Glycemic control strongly advised and to followup with Dr. Alvarez as outpatient for insulin pump approval. MAC/Wound recs: Consulted with patient this morning after brief conversation with Dr. Souza. Moist dressing showed small serosanguinous drainage with mild adherence to wound base. Performed small wound debriedment to healthy tissue producing BRB, controlled with pressure, debrieded down to exposed bone at lowest base. Irrigated with NS, applied skin barrier and drap to periwound area with 1 piece giang foam to fill and bridge to place pad on top of foot. Connected to low continuous -125 mmHg NPWT. Anticipating discharge to home with home vac and home infusion for ABX therapy today or tomorrow. Patient to follow up with Dr. Souza and wound therapy outpatient. - ALLERGIES Allergies/Adverse Reactions: Allergies Allergy/AdvReac Type Severity Reaction Status Date / Time No Known Drug Allergies Allergy Verified 06/29/18 13:00 - MEDICATIONS Home Medications: Ambulatory Orders Medication Instructions Recorded Confirmed Aspirin [Ecotrin] 81 mg PO DAILY 01/05/15 07/06/18 Insulin Glargine [Lantus] 70 units SUBQ BID 11/24/16 07/06/18 Atorvastatin [Lipitor] 10 mg PO QPM 02/03/17 07/06/18 Insulin Aspart [NovoLOG] 3 - 13 unit SUBQ 07/10/18 0800,1200,1700,2100 #1 pen Insulin Aspart [NovoLOG] 7 unit SUBQ TIDWM #1 pen 07/10/18 Multivitamin W/Minerals [Theragran 1 tab PO DAILYWM #30 tablet 07/10/18 M] Pioglitazone [Actos] 15 mg PO BIDAC #60 tablet 07/10/18 Pregabalin [Lyrica] 100 mg PO DAILY #30 capsule 07/10/18 cefTRIAXone [Rocephin 1 gram] 1 gm IV Q24H #7 vial 07/10/18 - PHYSICAL EXAM AT DISCHARGE General Appearance: positive: No acute distress Eyes Bilateral: positive: Normal inspection ENT: positive: ENT inspection nml Neck: positive: Nml inspection, Thyroid nml, No JVD, Trachea midline. negative: Thyromegaly Respiratory: positive: Chest non-tender, No respiratory distress, Breath sounds nml Cardiovascular: positive: Regular rate & rhythm, No murmur, No gallop. negative: Irregularly irregular, JVD present, Gallop/S4 Peripheral Pulses: positive: 1+, Other (1+DP to RLE) Abdomen: positive: Non-tender, No organomegaly, Nml bowel sounds, No distention. negative: Tenderness Skin: positive: Color nml, No rash, Warm, Other (surgical site without necrotic borders) Extremities: positive: Other (right surgical site was C/D/I) Neurologic/Psychiatric: positive: Oriented x3, CN's nml (2-12), Motor nml, Sensory loss (To BL feet from neuropathy) - LABS Result Diagrams: 07/10/18 05:44 07/10/18 05:44 - FOLLOW UP Follow Up: PCP in 1-[address] Bean as scheduled and [facility] follow visits as scheduled - TIME SPENT Time Spent in Discharge (Minutes): 35"
--- NOTE | 2018-07-10 12:24 | Discharge Plan ---
Discharge Plan Disposition: Home, Self Care Condition: Good Prescriptions: amLODIPine [Norvasc] 10 mg PO DAILY #60 tablet cefTRIAXone [Rocephin 1 gram] 1 gm IV Q24H #7 vial Insulin Aspart (Vial) [NovoLOG (VIAL FOR ED USE)] 7 unit SUBQ TID #1 vial Multivitamin W/Minerals [Theragran M] 1 tab PO DAILYWM #30 tablet Pioglitazone [Actos] 15 mg PO BIDAC #60 tablet Pregabalin [Lyrica] 100 mg PO DAILY #30 capsule Diet: Diabetic Activity Restrictions: Wt Bearing as Tolerated Shower Restrictions: No Driving Restrictions: No Assistance Devices: Crutches Weight Bearing: Full Weight Instruction Topics: Ceftriaxone injection, Pregabalin capsules, Dressing PICC Change Dc, DKA Prevent Ch Additional Instructions or Follow Up instructions: Patient to finish 5 weeks of IV Rocephin, see d/c summary. Diabetic education and [facility] clinic follow up. Will advise on Novolog 7 units TID/AC plus correctional ISS to ensure glycemic control. Glycemic control strongly advised and to followup with Dr. Alvarez as outpatient for insulin pump approval. Follow-Up Care: [facility] - Diabetes Ed No Smoking: If you smoke, Please STOP! Call for help. Follow-up with: Jose Alvarez MD [Primary Care Provider] - (In 1-2 weeks) Antonio Souza MD [Provider Admit Priv/Credential] - (As scheduled ) Brian Oliver, RN, MSN [Registered Nurse] - (As scheduled)
[2018-07-10] MEDS: cefTRIAXone 1 GM in SODIUM CHLORIDE 0.9% MINIBAG 100 ML IV SCH (12:27)
[2018-07-10] MEDS ORDERED: ALTEPLASE 2 MG VIAL IC SCH (12:35)
--- NOTE | 2018-07-10 17:03 | PROVIDER PROGRESS NOTE ---
Subjective - Prog Note Date Prog Note Date: 07/10/18 Prog Note Time: 13:00 - Subjective Pt reports feeling: Improved Current Medications - Current Medications Current Medications: Active Medications Acetaminophen (Tylenol) 650 mg PO Q4HR PRN PRN Reason: Pain or Fever > 38C (100.4F) Last Admin: 07/07/18 15:53 Dose: 650 mg Aspirin (Ecotrin) 81 mg PO DAILY [facility] Last Admin: 07/10/18 08:23 Dose: 81 mg Atorvastatin Calcium (Lipitor) 40 mg PO QPM [facility] Last Admin: 07/09/18 20:22 Dose: 40 mg Famotidine (Pepcid) 20 mg PO DAILY [facility] Last Admin: 07/10/18 08:23 Dose: 20 mg Heparin Sodium (Porcine) () 5,000 unit SUBQ BID [facility] Last Admin: 07/10/18 08:32 Dose: 5,000 unit Hydromorphone HCl (Dilaudid Inj Syringe) 0.5 mg IVP Q2H PRN PRN Reason: Pain 8 to 10 Ceftriaxone Sodium 1 gm/ (Sodium Chloride) 100 mls @ 200 mls/hr IV Q24H [facility] Last Infusion: 07/10/18 13:53 Dose: Infused Ibuprofen (Motrin) 600 mg PO Q6HR PRN PRN Reason: Pain 1 to 4 Insulin Aspart (Novolog) 3 - 13 unit SUBQ 0800,1200,1700,2100 [facility]; Protocol Last Admin: 07/10/18 12:44 Dose: 3 unit Insulin Aspart (Novolog) 7 unit SUBQ TIDWM [facility] Last Admin: 07/10/18 12:46 Dose: 7 unit Insulin Glargine (Lantus Solostar) 75 unit SUBQ BID [facility] Last Admin: 07/10/18 08:31 Dose: 75 unit Multivitamins/Minerals (Theragran M) 1 tab PO DAILYWM [facility] Last Admin: 07/10/18 08:23 Dose: 1 tab Pioglitazone HCl (Actos) 15 mg PO DAILY [facility] Last Admin: 07/10/18 09:41 Dose: 15 mg Polyethylene Glycol (Miralax) 17 gm PO DAILY [facility] Last Admin: 07/10/18 08:24 Dose: Not Given Pregabalin (Lyrica) 100 mg PO DAILY [facility] Last Admin: 07/10/18 08:23 Dose: 100 mg Prochlorperazine Edisylate (Compazine Inj) 10 mg IVP Q6HR PRN PRN Reason: Nausea / Vomiting Saccharomyces Boulardii (Florastor) 250 mg PO BIDWM [facility] Last Admin: 07/10/18 08:23 Dose: 250 mg Sodium Chloride (Normal Saline Flush 0.9%) 10 ml IVP PRN PRN PRN Reason: NEEDED PER PROVIDER ORDERS Last Admin: 07/10/18 13:54 Dose: 30 ml Sodium Chloride (Normal Saline Flush 0.9%) 10 ml IVP 0100,0900,1700 [facility] Last Admin: 07/10/18 08:42 Dose: 10 ml Zinc Sulfate () 220 mg PO DAILY [facility] Stop: 07/17/18 09:01 Last Admin: 07/10/18 08:23 Dose: 220 mg Zolpidem Tartrate (Ambien) 5 mg PO QPM PRN PRN Reason: Insomnia Aspirin [Ecotrin] 81 mg PO DAILY 01/05/15 Insulin Lispro [Humalog] 20 unit SQ TIDWM MDD 30 units per injection 01/05/15 Empagliflozin [Jardiance] 12.5 mg PO DAILY 08/26/16 Insulin Glargine [Lantus] 70 units SUBQ BID 11/24/16 Atorvastatin [Lipitor] 10 mg PO QPM 02/03/17 Objective - Vital Signs/Intake & Output Reviewed Vital Signs: Yes Vital Signs: Vital Signs x48h Temp Pulse Resp BP Pulse Ox 07/10/18 15:50 36.6 C 74 18 137/69 H 100 07/10/18 13:00 36.5 C 77 18 137/69 H 99 Intake & Output: Intake & Output 07/07/18 07/08/18 07/09/18 07/10/18 23:59 23:59 23:59 23:59 Intake Total 5942.5 4697.5 1670 1600 Output Total 0 0 Balance 5942.5 4697.5 1670 1600 - Objective General Appearance: positive: No acute distress ENT: positive: ENT inspection nml Neck: positive: Thyroid nml, No JVD, Trachea midline Respiratory: positive: Chest non-tender, No respiratory distress, Breath sounds nml Skin: positive: Color nml, No rash, Warm Extremities: positive: No pedal edema (right diabetic surgical site is with no necrotic borders on wound vac), Other Neurologic/Psychiatric: positive: Oriented x3, CN's nml (2-12), Sensory loss - Lab Results Fish Bones: 07/10/18 05:44 07/10/18 05:44 Other Labs: Lab Results x24hrs 07/10/18 07/10/18 07/10/18 Range/Units 16:40 11:02 07:37 WBC (4.8-10.8) x10^3/uL RBC (4.70-6.10) 10^6/uL Hgb (14.0-18.0) g/dL Hct (42.0-52.0) % MCV (80.0-94.0) fL MCH (27.0-31.0) pg MCHC (32.0-36.0) g/dL RDW (12.0-15.0) % Plt Count (130-450) 10^3/uL MPV (7.4-11.4) fL Neut # (Auto) (1.5-6.6) 10^3/uL Lymph # (Auto) (1.5-3.5) 10^3/uL [place] # (Auto) (0.0-1.0) 10^3/uL Eos # (Auto) (0.0-0.7) 10^3/uL Baso # (Auto) (0.0-0.1) 10^3/uL Absolute Nucleated RBC x10^3/uL Nucleated RBC % /100WBC Sodium (135-145) mmol/L Potassium (3.5-5.0) mmol/L Chloride (101-111) mmol/L Carbon Dioxide (21-32) mmol/L Anion Gap (6-13) BUN (6-20) mg/dL Creatinine (0.6-1.2) mg/dL Estimated GFR (MDRD) (>89) Glucose (70-100) mg/dL POC Whole Bld Glucose 119 H 174 H 88 (70 - 100) mg/dL Calcium (8.5-10.3) mg/dL Iron (45-182) ug/dL TIBC (250-450) ug/dL % Saturation (20-50) % Transferrin (180-329) mg/dL Triglycerides ( - 149) mg/dL Cholesterol ( - 199) mg/dL LDL Cholesterol, Calc ( - 129) mg/dL VLDL Cholesterol mg/dL HDL Cholesterol (60 - ) mg/dL LDL/HDL Ratio (<3.6) Cholesterol/HDL Ratio (<5.0) 07/10/18 07/10/18 07/10/18 Range/Units 05:54 05:44 05:44 WBC 4.4 L (4.8-10.8) x10^3/uL RBC 3.99 L (4.70-6.10) 10^6/uL Hgb 11.3 L (14.0-18.0) g/dL Hct 33.0 L (42.0-52.0) % MCV 82.8 (80.0-94.0) fL MCH 28.4 (27.0-31.0) pg MCHC 34.4 (32.0-36.0) g/dL RDW 14.4 (12.0-15.0) % Plt Count 287 (130-450) 10^3/uL MPV 6.8 L (7.4-11.4) fL Neut # (Auto) 2.7 (1.5-6.6) 10^3/uL Lymph # (Auto) 1.0 L (1.5-3.5) 10^3/uL [place] # (Auto) 0.5 (0.0-1.0) 10^3/uL Eos # (Auto) 0.2 (0.0-0.7) 10^3/uL Baso # (Auto) 0.0 (0.0-0.1) 10^3/uL Absolute Nucleated RBC 0.00 x10^3/uL Nucleated RBC % 0.1 /100WBC Sodium 138 (135-145) mmol/L Potassium 3.8 (3.5-5.0) mmol/L Chloride 97 L (101-111) mmol/L Carbon Dioxide 32 (21-32) mmol/L Anion Gap 9.0 (6-13) BUN 21 H (6-20) mg/dL Creatinine 0.8 (0.6-1.2) mg/dL Estimated GFR (MDRD) 99 (>89) Glucose 99 (70-100) mg/dL POC Whole Bld Glucose (70 - 100) mg/dL Calcium 9.0 (8.5-10.3) mg/dL Iron 43 L (45-182) ug/dL TIBC 206 L (250-450) ug/dL % Saturation 21 (20-50) % Transferrin 147 L (180-329) mg/dL Triglycerides 275 H ( - 149) mg/dL Cholesterol 145 ( - 199) mg/dL LDL Cholesterol, Calc 71 ( - 129) mg/dL VLDL Cholesterol 55 mg/dL HDL Cholesterol 19 L (60 - ) mg/dL LDL/HDL Ratio 3.7 (<3.6) Cholesterol/HDL Ratio 7.6 (<5.0) 07/09/18 07/09/18 Range/Units 20:14 17:08 WBC (4.8-10.8) x10^3/uL RBC (4.70-6.10) 10^6/uL Hgb (14.0-18.0) g/dL Hct (42.0-52.0) % MCV (80.0-94.0) fL MCH (27.0-31.0) pg MCHC (32.0-36.0) g/dL RDW (12.0-15.0) % Plt Count (130-450) 10^3/uL MPV (7.4-11.4) fL Neut # (Auto) (1.5-6.6) 10^3/uL Lymph # (Auto) (1.5-3.5) 10^3/uL [place] # (Auto) (0.0-1.0) 10^3/uL Eos # (Auto) (0.0-0.7) 10^3/uL Baso # (Auto) (0.0-0.1) 10^3/uL Absolute Nucleated RBC x10^3/uL Nucleated RBC % /100WBC Sodium (135-145) mmol/L Potassium (3.5-5.0) mmol/L Chloride (101-111) mmol/L Carbon Dioxide (21-32) mmol/L Anion Gap (6-13) BUN (6-20) mg/dL Creatinine (0.6-1.2) mg/dL Estimated GFR (MDRD) (>89) Glucose (70-100) mg/dL POC Whole Bld Glucose 268 H 180 H (70 - 100) mg/dL Calcium (8.5-10.3) mg/dL Iron (45-182) ug/dL TIBC (250-450) ug/dL % Saturation (20-50) % Transferrin (180-329) mg/dL Triglycerides ( - 149) mg/dL Cholesterol ( - 199) mg/dL LDL Cholesterol, Calc ( - 129) mg/dL VLDL Cholesterol mg/dL HDL Cholesterol (60 - ) mg/dL LDL/HDL Ratio (<3.6) Cholesterol/HDL Ratio (<5.0) ABX Reporting Has patient been on IV antibiotics over the past 48 hours?: Yes Assessment/Plan - Problem List (1) Bacteremia due to Streptococcus Impression: Blood cultures confirmed to be Streptococcus sp. other than pneumoniae; S. pyogens or agalactiae. sensitivities pending, although likely sensitive to cephalosporins. ECHO was neg for veggies on 07/06 with EF 65-75%, grade 1 DD. Continue with IV rocephin 1 g IV daily via PICC line would likely continue for another 5 weeks, repeat blood cultures ordered on 07/09. (2) Diabetic foot infection Impression: Continue with IV rocephin, wound cultures taken on 06/30 shows rare gram variable bacilli still not identified. Patient had a sharp debridement 07/09, per MAC eval Patient reports difficulty ambulating in BR r/t slippery tiles with use of crutches, Pt indicated that he uses roz shoe at home, which shows sign of wear over area of skin breakdown, applied offloading foam to roz shoe and instructed pt to wear when OOB. Will likely require approximately 5 week of total IV abx. Woun vac reapplied today. (3) Diabetes mellitus, insulin dependent (IDDM), uncontrolled Impression: Much improved after bolus humalog adjusted to 7 units TID/AC. On lantus 75 units BID along with actos, glycemic control to continue. Insulin pump to be approved as outpatient. Glycemic control needed for good wound healing of recently debrided right foot with a sharp debridement done 07/09. Qualifiers: Glycemic state: with hyperglycemia Qualified Code(s): E10.65 - Type 1 diabetes mellitus with hyperglycemia (4) Diabetic neuropathy Impression: continue with Lyrica 100 mg po daily. Qualifiers: Diabetes mellitus type: type 2 Diabetes mellitus complication detail: diabetic polyneuropathy Qualified Code(s): E11.42 - Type 2 diabetes mellitus with diabetic polyneuropathy Additional CC's: Jose Alvarez (3) Diabetes mellitus, insulin dependent (IDDM), uncontrolled Qualifiers: Glycemic state: with hyperglycemia Qualified Code(s): E10.65 - Type 1 diabetes mellitus with hyperglycemia (4) Diabetic neuropathy Qualifiers: Diabetes mellitus type: type 2 Diabetes mellitus complication detail: diabetic polyneuropathy Qualified Code(s): E11.42 - Type 2 diabetes mellitus with diabetic polyneuropathy
[2018-07-10] MEDS: ATORVASTATIN 40 MG TABLET PO SCH (21:13)
[2018-07-10] MEDS ORDERED: SODIUM CHLORIDE FLUSH 0.9% 10 ML SYRINGE IVP PRN (22:39)
[2018-07-11] MEDS: SODIUM CHLORIDE FLUSH 0.9% 10 ML SYRINGE IVP SCH ×2 (04:01→08:29)
[2018-07-11] MEDS: INSULIN ASPART 300 UNIT/3 ML PEN SUBQ SCH ×4 (08:23→12:38)
[2018-07-11] MEDS: ZINC SULFATE 220 MG CAPSULE PO SCH (08:27)
[2018-07-11] MEDS: FAMOTIDINE 20 MG TABLET PO SCH (08:27)
[2018-07-11] MEDS: ASPIRIN EC 81 MG TABLET PO SCH (08:27)
[2018-07-11] MEDS: HEPARIN 5,000 UNIT/ML VIAL SUBQ SCH (08:27)
[2018-07-11] MEDS: SACCHAROMYCES BOULARDII 250 MG CAPSULE PO SCH (08:27)
[2018-07-11] MEDS: PIOGLITAZONE 15 MG TABLET PO SCH (08:27)
[2018-07-11] MEDS: PREGABALIN 100 MG CAPSULE PO SCH (08:27)
[2018-07-11] MEDS: MULTIVITAMIN W/MINERALS TABLET PO SCH (08:27)
[2018-07-11] MEDS: INSULIN GLARGINE 300 UNIT/3 ML PEN SUBQ SCH (08:28)
[2018-07-11] MEDS: POLYETHYLENE GLYCOL 3350 17 GM PACKET PO SCH (08:29)
[2018-07-11] MEDS ORDERED: amLODIPine 5 MG TABLET PO SCH (09:00)
[2018-07-11 12:46] VITALS: BP 145/64
[2018-07-11] MEDS ORDERED: SODIUM CHLORIDE FLUSH 0.9% 10 ML SYRINGE ONE (13:37)
[2018-07-11] MEDS: cefTRIAXone 1 GM in SODIUM CHLORIDE 0.9% MINIBAG 100 ML IV SCH (13:40)
== END 2018-07-11 15:45 | disposition home or self-care (01) | DRG 637 ==
LOC: SDS 09:27 → UNDOADMIN 09:29 → ICU 09:29 → EDSTATUS 12:07 → ICU 07-09 19:00 → MS2 07-09 19:00 → UNDODISIN 07-11 15:45
PROVIDERS: ADMIT Internal Medicine; ATTEND Family Medicine
PROC: 02HV33Z Insertion of Infusion Device into Superior Vena Cava, Percutaneous Approach (ICD-10-PCS; principal; 2018-07-07)
DX: E11.10 Type 2 diabetes mellitus with ketoacidosis without coma (principal); N17.0 Acute kidney failure with tubular necrosis; R78.81 Bacteremia; L08.9 Local infection of the skin and subcutaneous tissue, unspecified; E11.00 Type 2 diabetes mellitus with hyperosmolarity without nonketotic hyperglycemic-hyperosmolar coma (NKHHC); E11.42 Type 2 diabetes mellitus with diabetic polyneuropathy; E11.22 Type 2 diabetes mellitus with diabetic chronic kidney disease; I13.10 Hypertensive heart and chronic kidney disease without heart failure, with stage 1 through stage 4 chronic kidney disease, or unspecified chronic kidney disease; N18.3 Chronic kidney disease, stage 3 (moderate); E86.0 Dehydration; B95.4 Other streptococcus as the cause of diseases classified elsewhere; D50.9 Iron deficiency anemia, unspecified; E78.1 Pure hyperglyceridemia; Z79.899 Other long term (current) drug therapy; Z79.4 Long term (current) use of insulin; Z89.422 Acquired absence of other left toe(s); Z79.82 Long term (current) use of aspirin; Z87.891 Personal history of nicotine dependence
CPT/HCPCS: 36415; 71045; 80048; 80053; 80061; 80202; 81001; 82009; 82803; 82947; 83036; 83540; 83605; 83721; 83735; 84466; 84484; 85025; 85610; 86141; 87040; 87077; 87086; 87150; 87181; 90670; 90686; 93005; 93306

== ENCOUNTER 2018-09-16 08:00 | Outpatient (CLI) | payer MEDICARE ==
[2018-09-16 14:41] LABS: ALBUMIN 3.9 g/dL (3.2-5.5); ALBUMIN/GLOBULIN RATIO 1.2 (1.0-2.2); ALKALINE PHOSPHATASE 131 IU/L (42-121); ALT ALANINE AMINOTRANSFERASE 25 IU/L (10-60); AST ASPARTATE AMINOTRANSFERASE 22 IU/L (10-42); BILIRUBIN,TOTAL 0.8 mg/dL (0.2-1.0); BUN - BLOOD UREA NITROGEN 17 mg/dL (6-20); CALCIUM 8.6 mg/dL (8.5-10.3); CARBON DIOXIDE - CO2 28 mmol/L (21-32); CHLORIDE 103 mmol/L (101-111); CHOL/HDL RATIO 4.3 (<5.0); CHOLESTEROL 185 mg/dL; GFR - MDRD 76 (>89); GLUCOSE 133 mg/dL (70-100); HDL CHOLESTEROL 43 mg/dL; LDL CHOLESTEROL,CALCULATED 127 mg/dL; SODIUM 138 mmol/L (135-145); TOTAL PROTEIN 7.1 g/dL (6.7-8.2); VLDL CHOLESTEROL 15 mg/dL
[2018-09-16 14:56] LABS: HB2 TOTAL 13.2 g/dL; HEMOGLOBIN A1C 0.8 g/dL; HEMOGLOBIN A1C % 7.7 % (4.6-6.2)
== END 2018-09-16 23:59 | disposition home or self-care (01) ==
LOC: LAB.WCP 08:00
PROVIDERS: ATTEND Family Medicine
DX: E11.621 Type 2 diabetes mellitus with foot ulcer (principal); L97.519 Non-pressure chronic ulcer of other part of right foot with unspecified severity; E11.22 Type 2 diabetes mellitus with diabetic chronic kidney disease; N18.3 Chronic kidney disease, stage 3 (moderate); I12.9 Hypertensive chronic kidney disease with stage 1 through stage 4 chronic kidney disease, or unspecified chronic kidney disease; Z12.5 Encounter for screening for malignant neoplasm of prostate
CPT/HCPCS: 36415; 80053; 80061; 82043; 83036; 84443; G0103; 83721; 84153

== ENCOUNTER 2018-10-28 12:58 | Outpatient (CLI) | payer MEDICARE ==
--- NOTE | 2018-10-28 13:52 | XRAY Report ---
Reason: ASTHMATIC BRONCHITIS, ACUTE PATIENT W-RAY DURATION Procedure Date: 10/28/2018 Accession Number: [id number] / [id number] Procedure: XR - Chest 2 View X-Ray CPT Code: 66874 FULL RESULT: EXAM: CHEST RADIOGRAPHY EXAM DATE: 10/28/2018 01:17 PM. CLINICAL HISTORY: ASTHMATIC BRONCHITIS, ACUTE PATIENT W-RAY DURATION. COMPARISON: CHEST FOR LINE PLACEMENT 07/07/2018 1:55 PM. TECHNIQUE: 2 views. FINDINGS: Lungs/Pleura: No focal opacities evident. No pleural effusion. No pneumothorax. Normal volumes. Mediastinum: Heart and mediastinal contours are unremarkable. Other: None. IMPRESSION: Normal 2-view chest radiography. RADIA
== END 2018-10-28 12:59 | disposition home or self-care (01) ==
LOC: DI 12:58
PROVIDERS: ATTEND Family Medicine
DX: J45.909 Unspecified asthma, uncomplicated (principal)
CPT/HCPCS: 71046

== ENCOUNTER 2018-12-08 08:10 | Outpatient (CLI) | payer MEDICARE ==
[2018-12-08 15:38] LABS: ALBUMIN 3.8 g/dL (3.2-5.5); ALBUMIN/GLOBULIN RATIO 1.1 (1.0-2.2); BILIRUBIN,TOTAL 0.6 mg/dL (0.2-1.0); CREATININE 0.9 mg/dL (0.6-1.2); TOTAL PROTEIN 7.3 g/dL (6.7-8.2)
[2018-12-08 17:48] LABS: HB2 TOTAL 14.3 g/dL; HEMOGLOBIN A1C 1.18 g/dL; HEMOGLOBIN A1C % 9.7 % (4.6-6.2)
== END 2018-12-08 08:11 | disposition home or self-care (01) ==
LOC: LAB.WCP 08:10
PROVIDERS: ATTEND Family Medicine
DX: E11.621 Type 2 diabetes mellitus with foot ulcer (principal); I12.9 Hypertensive chronic kidney disease with stage 1 through stage 4 chronic kidney disease, or unspecified chronic kidney disease; N18.3 Chronic kidney disease, stage 3 (moderate); E11.22 Type 2 diabetes mellitus with diabetic chronic kidney disease
CPT/HCPCS: 36415; 80053; 83036

== ENCOUNTER 2019-03-08 08:04 | Outpatient (CLI) | payer MEDICARE ==
[2019-03-08 12:11] LABS: BASOPHILS # (AUTO) 0.1 10^3/uL (0.0-0.1); BASOPHILS % (AUTO) 0.7 %; EOSINOPHILS # (AUTO) 0.1 10^3/uL (0.0-0.7); EOSINOPHILS % (AUTO) 1.3 %; HGB - HEMOGLOBIN 13.9 g/dL (14.0-18.0); LYMPHOCYTES % (AUTO) 12.9 %; MEAN CORPUSCULAR HEMOGLOBIN 27.6 pg (27.0-31.0); MEAN CORPUSCULAR VOLUME 86.1 fL (80.0-94.0); MEAN PLATELET VOLUME 9.9 fL (7.4-11.4); MONOCYTES # (AUTO) 0.5 10^3/uL (0.0-1.0); MONOCYTES % (AUTO) 6.1 %; NEUTROPHILS % (AUTO) 78.2 %; PLT - PLATELET COUNT 281 10^3/uL (130-450); RED BLOOD COUNT 5.04 10^6/uL (4.70-6.10); RED CELL DISTRIBUTION WIDTH 13.5 % (12.0-15.0); WHITE BLOOD COUNT 7.7 x10^3/uL (4.8-10.8)
[2019-03-08 12:32] LABS: HEMOGLOBIN A1C 1.45 g/dL; HEMOGLOBIN A1C % 11.6 % (4.6-6.2)
[2019-03-08 12:59] LABS: ALBUMIN 3.8 g/dL (3.2-5.5); ALKALINE PHOSPHATASE 141 IU/L (42-121); ALT ALANINE AMINOTRANSFERASE 25 IU/L (10-60); AST ASPARTATE AMINOTRANSFERASE 21 IU/L (10-42); BILIRUBIN,TOTAL 0.7 mg/dL (0.2-1.0); BUN - BLOOD UREA NITROGEN 19 mg/dL (6-20); CALCIUM 9.2 mg/dL (8.5-10.3); CARBON DIOXIDE - CO2 26 mmol/L (21-32); CHLORIDE 104 mmol/L (101-111); CHOL/HDL RATIO 4.8 (<5.0); CHOLESTEROL 228 mg/dL; GFR - MDRD 76 (>89); GLUCOSE 152 mg/dL (70-100); HDL CHOLESTEROL 48 mg/dL; LDL CHOLESTEROL,CALCULATED 149 mg/dL; LDL/HDL RATIO 3.1 (<3.6); SODIUM 139 mmol/L (135-145); TOTAL PROTEIN 7.7 g/dL (6.7-8.2); VLDL CHOLESTEROL 31 mg/dL
== END 2019-03-08 08:05 | disposition home or self-care (01) ==
LOC: LAB.WCP 08:04
PROVIDERS: ATTEND Family Medicine
DX: N18.3 Chronic kidney disease, stage 3 (moderate) (principal); I10 Essential (primary) hypertension; E78.5 Hyperlipidemia, unspecified; E11.49 Type 2 diabetes mellitus with other diabetic neurological complication
CPT/HCPCS: 36415; 80053; 80061; 82043; 82570; 83036; 83721; 85025

== ENCOUNTER 2019-05-19 08:00 | Outpatient (CLI) | payer MEDICARE ==
[2019-05-19 13:48] LABS: HB2 TOTAL 13.8 g/dL; HEMOGLOBIN A1C 1.14 g/dL; HEMOGLOBIN A1C % 9.7 % (4.6-6.2)
[2019-05-19 14:10] LABS: CALCIUM 9.8 mg/dL (8.5-10.3); CREATININE 1.1 mg/dL (0.6-1.2)
== END 2019-05-19 23:59 | disposition home or self-care (01) ==
LOC: LAB.WCP 08:00
PROVIDERS: ATTEND Family Medicine
DX: I12.9 Hypertensive chronic kidney disease with stage 1 through stage 4 chronic kidney disease, or unspecified chronic kidney disease (principal); E11.22 Type 2 diabetes mellitus with diabetic chronic kidney disease; N18.3 Chronic kidney disease, stage 3 (moderate); E11.621 Type 2 diabetes mellitus with foot ulcer; E11.49 Type 2 diabetes mellitus with other diabetic neurological complication
CPT/HCPCS: 36415; 80048; 82043; 82570; 83036

== ENCOUNTER 2019-06-28 10:15 | Outpatient (CLI) | payer MEDICARE ==
[2019-06-28 11:34] LABS: BASOPHILS # (AUTO) 0.1 10^3/uL (0.0-0.1); BASOPHILS % (AUTO) 1.1 %; EOSINOPHILS # (AUTO) 0.2 10^3/uL (0.0-0.7); EOSINOPHILS % (AUTO) 3.5 %; HGB - HEMOGLOBIN 11.9 g/dL (14.0-18.0); LYMPHOCYTES % (AUTO) 16.1 %; MEAN CORPUSCULAR HEMOGLOBIN 27.7 pg (27.0-31.0); MEAN CORPUSCULAR HGB CONC 32.6 g/dL (32.0-36.0); MEAN CORPUSCULAR VOLUME 85.1 fL (80.0-94.0); MONOCYTES # (AUTO) 0.6 10^3/uL (0.0-1.0); MONOCYTES % (AUTO) 8.9 %; NEUTROPHILS # (AUTO) 4.4 10^3/uL (1.5-6.6); NEUTROPHILS % (AUTO) 69.9 %; PLT - PLATELET COUNT 219 10^3/uL (130-450); RED BLOOD COUNT 4.29 10^6/uL (4.70-6.10); RED CELL DISTRIBUTION WIDTH 14.1 % (12.0-15.0); WHITE BLOOD COUNT 6.3 x10^3/uL (4.8-10.8)
[2019-06-28 11:51] LABS: ALBUMIN 3.8 g/dL (3.2-5.5); ALBUMIN/GLOBULIN RATIO 1.2 (1.0-2.2); ALKALINE PHOSPHATASE 112 IU/L (42-121); ALT ALANINE AMINOTRANSFERASE 20 IU/L (10-60); AST ASPARTATE AMINOTRANSFERASE 16 IU/L (10-42); BILIRUBIN,TOTAL 0.8 mg/dL (0.2-1.0); BUN - BLOOD UREA NITROGEN 21 mg/dL (6-20); CALCIUM 9.5 mg/dL (8.5-10.3); CARBON DIOXIDE - CO2 29 mmol/L (21-32); CHLORIDE 100 mmol/L (101-111); CREATININE 1.1 mg/dL (0.6-1.2); GFR - MDRD 68 (>89); GLUCOSE 100 mg/dL (70-100); SODIUM 139 mmol/L (135-145); TOTAL PROTEIN 6.9 g/dL (6.7-8.2); VANCOMYCIN,TROUGH 18.2 ug/mL (10.0-20.0)
[2019-06-28 12:01] LABS: CRP - C-REACTIVE PROTEIN < 1.0 mg/dL (0-1.0)
== END 2019-06-28 10:16 | disposition home or self-care (01) ==
LOC: LAB.R 10:15
PROVIDERS: ATTEND Orthopaedic Surgery Foot and Ankle Surgery
DX: M19.071 Primary osteoarthritis, right ankle and foot (principal)
CPT/HCPCS: 80053; 80202; 85025; 85651; 86140

== ENCOUNTER 2019-07-05 10:30 | Outpatient (CLI) | payer MEDICARE ==
[2019-07-05 11:29] LABS: BASOPHILS # (AUTO) 0.1 10^3/uL (0.0-0.1); BASOPHILS % (AUTO) 0.9 %; EOSINOPHILS # (AUTO) 0.3 10^3/uL (0.0-0.7); EOSINOPHILS % (AUTO) 4.2 %; HGB - HEMOGLOBIN 12.4 g/dL (14.0-18.0); MEAN CORPUSCULAR HEMOGLOBIN 28.2 pg (27.0-31.0); MEAN CORPUSCULAR HGB CONC 33.7 g/dL (32.0-36.0); MEAN CORPUSCULAR VOLUME 83.8 fL (80.0-94.0); MEAN PLATELET VOLUME 9.6 fL (7.4-11.4); MONOCYTES # (AUTO) 0.7 10^3/uL (0.0-1.0); MONOCYTES % (AUTO) 11.3 %; NEUTROPHILS # (AUTO) 4.3 10^3/uL (1.5-6.6); NEUTROPHILS % (AUTO) 67.3 %; PLT - PLATELET COUNT 213 10^3/uL (130-450); RED BLOOD COUNT 4.39 10^6/uL (4.70-6.10); RED CELL DISTRIBUTION WIDTH 14.1 % (12.0-15.0); WHITE BLOOD COUNT 6.4 x10^3/uL (4.8-10.8)
[2019-07-05 11:55] LABS: ALBUMIN/GLOBULIN RATIO 1.3 (1.0-2.2); ALKALINE PHOSPHATASE 103 IU/L (42-121); ALT ALANINE AMINOTRANSFERASE 18 IU/L (10-60); AST ASPARTATE AMINOTRANSFERASE 16 IU/L (10-42); BUN - BLOOD UREA NITROGEN 19 mg/dL (6-20); CALCIUM 9.7 mg/dL (8.5-10.3); CARBON DIOXIDE - CO2 29 mmol/L (21-32); CHLORIDE 102 mmol/L (101-111); CREATININE 1.4 mg/dL (0.6-1.2); GFR - MDRD 52 (>89); GLUCOSE 67 mg/dL (70-100); SODIUM 143 mmol/L (135-145); TOTAL PROTEIN 7.2 g/dL (6.7-8.2); VANCOMYCIN,TROUGH 23.8 ug/mL (10.0-20.0)
[2019-07-05 12:14] LABS: CRP - C-REACTIVE PROTEIN < 1.0 mg/dL (0-1.0)
== END 2019-07-05 23:59 | disposition home or self-care (01) ==
LOC: LAB.R 10:30
PROVIDERS: ATTEND Orthopaedic Surgery Foot and Ankle Surgery
DX: M19.071 Primary osteoarthritis, right ankle and foot (principal)
CPT/HCPCS: 80053; 80202; 85025; 85651; 86140

== ENCOUNTER 2019-07-08 08:00 | Outpatient (CLI) | payer MEDICARE ==
[2019-07-08 11:34] LABS: CREATININE 1.4 mg/dL (0.6-1.2); GFR - MDRD 52 (>89); VANCOMYCIN,TROUGH 17.1 ug/mL (10.0-20.0)
== END 2019-07-08 23:59 | disposition home or self-care (01) ==
LOC: LAB.R 08:00
PROVIDERS: ATTEND Orthopaedic Surgery Foot and Ankle Surgery
DX: M19.071 Primary osteoarthritis, right ankle and foot (principal); L97.519 Non-pressure chronic ulcer of other part of right foot with unspecified severity
CPT/HCPCS: 80202; 82565

== ENCOUNTER 2019-07-12 10:10 | Outpatient (CLI) | payer MEDICARE ==
[2019-07-12 11:09] LABS: BASOPHILS # (AUTO) 0.1 10^3/uL (0.0-0.1); BASOPHILS % (AUTO) 0.9 %; EOSINOPHILS # (AUTO) 0.2 10^3/uL (0.0-0.7); EOSINOPHILS % (AUTO) 3.6 %; HGB - HEMOGLOBIN 12.5 g/dL (14.0-18.0); LYMPHOCYTES # (AUTO) 1.1 10^3/uL (1.5-3.5); LYMPHOCYTES % (AUTO) 16.5 %; MEAN CORPUSCULAR HEMOGLOBIN 27.5 pg (27.0-31.0); MEAN CORPUSCULAR HGB CONC 33.3 g/dL (32.0-36.0); MEAN CORPUSCULAR VOLUME 82.4 fL (80.0-94.0); MEAN PLATELET VOLUME 9.4 fL (7.4-11.4); MONOCYTES # (AUTO) 0.6 10^3/uL (0.0-1.0); MONOCYTES % (AUTO) 9.8 %; NEUTROPHILS # (AUTO) 4.4 10^3/uL (1.5-6.6); NEUTROPHILS % (AUTO) 68.9 %; PLT - PLATELET COUNT 223 10^3/uL (130-450); RED BLOOD COUNT 4.55 10^6/uL (4.70-6.10); RED CELL DISTRIBUTION WIDTH 13.9 % (12.0-15.0); WHITE BLOOD COUNT 6.4 x10^3/uL (4.8-10.8)
[2019-07-12 11:41] LABS: ALBUMIN 3.8 g/dL (3.2-5.5); ALBUMIN/GLOBULIN RATIO 1.3 (1.0-2.2); ALKALINE PHOSPHATASE 101 IU/L (42-121); ALT ALANINE AMINOTRANSFERASE 24 IU/L (10-60); AST ASPARTATE AMINOTRANSFERASE 20 IU/L (10-42); BILIRUBIN,TOTAL 0.6 mg/dL (0.2-1.0); BUN - BLOOD UREA NITROGEN 17 mg/dL (6-20); CALCIUM 9.7 mg/dL (8.5-10.3); CARBON DIOXIDE - CO2 28 mmol/L (21-32); CHLORIDE 102 mmol/L (101-111); CREATININE 1.3 mg/dL (0.6-1.2); GFR - MDRD 56 (>89); SODIUM 140 mmol/L (135-145); TOTAL PROTEIN 6.8 g/dL (6.7-8.2); VANCOMYCIN,TROUGH 14.7 ug/mL (10.0-20.0)
[2019-07-12 11:42] LABS: CRP - C-REACTIVE PROTEIN < 1.0 mg/dL (0-1.0); GLUCOSE 57 mg/dL (70-100)
== END 2019-07-12 23:59 | disposition home or self-care (01) ==
LOC: LAB.R 10:10
PROVIDERS: ATTEND Orthopaedic Surgery Foot and Ankle Surgery
DX: M19.071 Primary osteoarthritis, right ankle and foot (principal)
CPT/HCPCS: 80053; 80202; 85025; 85651; 86140

== ENCOUNTER 2019-08-19 07:00 | Outpatient (CLI) | payer MEDICARE ==
[2019-08-19 12:54] LABS: CALCIUM 9.4 mg/dL (8.5-10.3); CREATININE 1.8 mg/dL (0.6-1.2)
[2019-08-19 13:28] LABS: CREATININE,URINE 87.6 mg/dL; MICROALBUMIN,URINE 2.8 mg/dL (0-300.0)
[2019-08-19 16:36] LABS: HB2 TOTAL 12.4 g/dL; HEMOGLOBIN A1C 0.79 g/dL
== END 2019-08-19 23:59 | disposition home or self-care (01) ==
LOC: LAB.WCP 07:00
PROVIDERS: ATTEND Family Medicine
DX: E11.621 Type 2 diabetes mellitus with foot ulcer (principal); E11.22 Type 2 diabetes mellitus with diabetic chronic kidney disease; I12.9 Hypertensive chronic kidney disease with stage 1 through stage 4 chronic kidney disease, or unspecified chronic kidney disease; N18.3 Chronic kidney disease, stage 3 (moderate)
CPT/HCPCS: 36415; 80048; 82043; 82570; 83036

== ENCOUNTER 2019-09-24 13:53 | Outpatient (CLI) | payer MEDICARE ==
[2019-09-24 14:18] LABS: BASOPHILS # (AUTO) 0.1 10^3/uL (0.0-0.1); BASOPHILS % (AUTO) 0.7 %; EOSINOPHILS # (AUTO) 0.1 10^3/uL (0.0-0.7); EOSINOPHILS % (AUTO) 1.6 %; HGB - HEMOGLOBIN 11.2 g/dL (14.0-18.0); LYMPHOCYTES # (AUTO) 0.9 10^3/uL (1.5-3.5); LYMPHOCYTES % (AUTO) 12.6 %; MEAN CORPUSCULAR HEMOGLOBIN 26.9 pg (27.0-31.0); MEAN CORPUSCULAR HGB CONC 32.8 g/dL (32.0-36.0); MEAN PLATELET VOLUME 8.7 fL (7.4-11.4); MONOCYTES # (AUTO) 0.6 10^3/uL (0.0-1.0); MONOCYTES % (AUTO) 7.9 %; NEUTROPHILS # (AUTO) 5.8 10^3/uL (1.5-6.6); NEUTROPHILS % (AUTO) 76.8 %; PLT - PLATELET COUNT 372 10^3/uL (130-450); RED BLOOD COUNT 4.16 10^6/uL (4.70-6.10); RED CELL DISTRIBUTION WIDTH 13.7 % (12.0-15.0); WHITE BLOOD COUNT 7.5 x10^3/uL (4.8-10.8)
== END 2019-09-24 13:54 | disposition home or self-care (01) ==
LOC: LAB 13:53
PROVIDERS: ATTEND Orthopaedic Surgery Foot and Ankle Surgery
DX: E11.621 Type 2 diabetes mellitus with foot ulcer (principal); L97.514 Non-pressure chronic ulcer of other part of right foot with necrosis of bone; L97.519 Non-pressure chronic ulcer of other part of right foot with unspecified severity; M19.071 Primary osteoarthritis, right ankle and foot; M79.671 Pain in right foot
CPT/HCPCS: 36415; 85025; 85651; 86140

== ENCOUNTER 2019-10-08 13:24 | Outpatient (CLI) | payer MEDICARE | END 2019-10-08 13:25 | disposition home or self-care (01) | LOC: LAB 13:24 | PROVIDERS: ATTEND Orthopaedic Surgery Foot and Ankle Surgery | DX: E11.621 Type 2 diabetes mellitus with foot ulcer (principal); L97.514 Non-pressure chronic ulcer of other part of right foot with necrosis of bone | CPT/HCPCS: 36415; 85651; 86140 ==

== ENCOUNTER 2019-10-19 07:29 | Outpatient (CLI) | payer MEDICARE ==
[2019-10-19 13:08] LABS: CALCIUM 8.9 mg/dL (8.5-10.3); CREATININE 1.3 mg/dL (0.6-1.2)
[2019-10-19 13:13] LABS: CREATININE,URINE 95.1 mg/dL; MICROALBUM/CREATININE RATIO,UR 74.7 ug/mg (<30.0); MICROALBUMIN,URINE 7.1 mg/dL (0-300.0)
[2019-10-19 13:21] LABS: HB2 TOTAL 10.9 g/dL; HEMOGLOBIN A1C 0.71 g/dL; HEMOGLOBIN A1C % 8.1 % (4.6-6.2)
== END 2019-10-19 23:59 | disposition home or self-care (01) ==
LOC: LAB.WCP 07:29
PROVIDERS: ATTEND Family Medicine
DX: E11.621 Type 2 diabetes mellitus with foot ulcer (principal); E11.22 Type 2 diabetes mellitus with diabetic chronic kidney disease; N18.3 Chronic kidney disease, stage 3 (moderate)
CPT/HCPCS: 36415; 80048; 82043; 82570; 83036

== ENCOUNTER 2020-01-19 07:22 | Outpatient (CLI) | payer MEDICARE ==
[2020-01-19 13:49] LABS: CREATININE 1.4 mg/dL (0.6-1.2)
[2020-01-19 14:09] LABS: HB2 TOTAL 13.6 g/dL; HEMOGLOBIN A1C 0.84 g/dL; HEMOGLOBIN A1C % 7.8 % (4.6-6.2)
[2020-01-19 14:11] LABS: CREATININE,URINE 132.2 mg/dL; MICROALBUM/CREATININE RATIO,UR 80.9 ug/mg (<30.0); MICROALBUMIN,URINE 10.7 mg/dL (0-300.0)
== END 2020-01-19 23:59 | disposition home or self-care (01) ==
LOC: LAB.WCP 07:22
PROVIDERS: ATTEND Family Medicine
DX: E11.22 Type 2 diabetes mellitus with diabetic chronic kidney disease (principal); N18.3 Chronic kidney disease, stage 3 (moderate); I12.9 Hypertensive chronic kidney disease with stage 1 through stage 4 chronic kidney disease, or unspecified chronic kidney disease
CPT/HCPCS: 36415; 80048; 82043; 82570; 83036

== ENCOUNTER 2020-05-17 07:33 | Outpatient (CLI) | payer MEDICARE ==
[2020-05-17 12:24] LABS: ALBUMIN 4.2 g/dL (3.2-5.5); ALBUMIN/GLOBULIN RATIO 1.3 (1.0-2.2); ALKALINE PHOSPHATASE 98 IU/L (42-121); ALT ALANINE AMINOTRANSFERASE 25 IU/L (10-60); AST ASPARTATE AMINOTRANSFERASE 23 IU/L (10-42); BILIRUBIN,TOTAL 0.6 mg/dL (0.2-1.0); BUN - BLOOD UREA NITROGEN 31 mg/dL (6-20); CALCIUM 9.8 mg/dL (8.5-10.3); CARBON DIOXIDE - CO2 28 mmol/L (21-32); CHLORIDE 102 mmol/L (101-111); CHOL/HDL RATIO 5.8 (<5.0); CHOLESTEROL 255 mg/dL; CREATININE 1.5 mg/dL (0.6-1.2); GLUCOSE 154 mg/dL (70-100); HDL CHOLESTEROL 44 mg/dL; LDL CHOLESTEROL,CALCULATED 164 mg/dL; LDL/HDL RATIO 3.7 (<3.6); SODIUM 136 mmol/L (135-145); TOTAL PROTEIN 7.4 g/dL (6.7-8.2); VLDL CHOLESTEROL 47 mg/dL
[2020-05-17 12:35] LABS: HEMOGLOBIN A1c% 8.4 % (4.27-6.07)
== END 2020-05-17 23:59 | disposition home or self-care (01) ==
LOC: LAB.WCP 07:33
PROVIDERS: ATTEND Physician Assistant Medical
DX: E78.5 Hyperlipidemia, unspecified (principal); E11.49 Type 2 diabetes mellitus with other diabetic neurological complication; Z12.5 Encounter for screening for malignant neoplasm of prostate
CPT/HCPCS: 36415; 80053; 80061; 83036; G0103; 83721; 84153

== ENCOUNTER 2020-08-23 08:00 | Outpatient (CLI) | payer MEDICARE ==
[2020-08-23 12:12] LABS: CALCIUM 9.3 mg/dL (8.5-10.3); CREATININE 1.5 mg/dL (0.6-1.2)
[2020-08-23 12:37] LABS: HEMOGLOBIN A1c% 8.8 % (4.27-6.07)
[2020-08-23 12:41] LABS: CREATININE,URINE 241.5 mg/dL; MICROALBUM/CREATININE RATIO,UR 213.7 ug/mg (<30.0); MICROALBUMIN,URINE 51.6 mg/dL (0-300.0)
== END 2020-08-23 23:59 | disposition home or self-care (01) ==
LOC: LAB.WCP 08:00
PROVIDERS: ATTEND Nurse Practitioner
DX: E11.9 Type 2 diabetes mellitus without complications (principal)
CPT/HCPCS: 36415; 80048; 82043; 82570; 83036

== ENCOUNTER 2020-10-13 06:24 | Day surgery (SDC) | payer MEDICARE ==
[2020-10-13] MEDS ORDERED: LACTATED RINGERS 1,000 ML IV ONE ×2 (06:47→08:30)
[2020-10-13] MEDS ORDERED: fentaNYL 250 MCG/5 ML VIAL ONE (07:38)
[2020-10-13] MEDS ORDERED: MIDAZOLAM 2 MG/2 ML VIAL ONE ×2 (07:38→07:46)
[2020-10-13 08:45] VITALS: BP 160/85
== END 2020-10-13 06:25 | disposition home or self-care (01) ==
LOC: SDS 06:24
PROVIDERS: ATTEND Surgery
PROC: 0DBL8ZZ Excision of Transverse Colon, Via Natural or Artificial Opening Endoscopic (ICD-10-PCS; 2020-10-13)
PROC: 0DBP8ZZ Excision of Rectum, Via Natural or Artificial Opening Endoscopic (ICD-10-PCS; 2020-10-13)
PROC: 0DBH8ZZ Excision of Cecum, Via Natural or Artificial Opening Endoscopic (ICD-10-PCS; principal; 2020-10-13 07:30)
DX: Z12.11 Encounter for screening for malignant neoplasm of colon (principal); D12.0 Benign neoplasm of cecum; D12.3 Benign neoplasm of transverse colon; K62.1 Rectal polyp; E11.22 Type 2 diabetes mellitus with diabetic chronic kidney disease; I12.9 Hypertensive chronic kidney disease with stage 1 through stage 4 chronic kidney disease, or unspecified chronic kidney disease; N18.30 Chronic kidney disease, stage 3 unspecified; Z87.891 Personal history of nicotine dependence; Z79.4 Long term (current) use of insulin; D64.9 Anemia, unspecified
CPT/HCPCS: 45380; J3010; J7120

== ENCOUNTER 2020-11-15 08:00 | Outpatient (CLI) | payer MEDICARE ==
[2020-11-15 12:44] LABS: CALCIUM 9.4 mg/dL (8.5-10.3); CREATININE 1.5 mg/dL (0.6-1.2); POTASSIUM 4.6 mmol/L (3.5-5.0)
[2020-11-15 13:48] LABS: ESTIMATED AVERAGE GLUCOSE 209 mg/dL (70-100); HEMOGLOBIN A1c% 8.9 % (4.27-6.07)
== END 2020-11-15 23:59 | disposition home or self-care (01) ==
LOC: LAB.WCP 08:00
PROVIDERS: ATTEND Nurse Practitioner
DX: E11.49 Type 2 diabetes mellitus with other diabetic neurological complication (principal)
CPT/HCPCS: 36415; 80048; 83036

== ENCOUNTER 2021-02-28 08:00 | Outpatient (CLI) | payer MEDICARE ==
[2021-02-28 12:22] LABS: ALBUMIN 4.1 g/dL (3.2-5.5); ALBUMIN/GLOBULIN RATIO 1.3 (1.0-2.2); ALKALINE PHOSPHATASE 125 IU/L (42-121); ALT ALANINE AMINOTRANSFERASE 25 IU/L (10-60); AST ASPARTATE AMINOTRANSFERASE 22 IU/L (10-42); BILIRUBIN,TOTAL 0.6 mg/dL (0.2-1.0); BUN - BLOOD UREA NITROGEN 24 mg/dL (6-20); CARBON DIOXIDE - CO2 27 mmol/L (21-32); CHLORIDE 100 mmol/L (101-111); CHOL/HDL RATIO 3.8 (<5.0); CHOLESTEROL 173 mg/dL; CREATININE 1.4 mg/dL (0.6-1.2); GFR - MDRD 51 (>89); GLUCOSE 121 mg/dL (70-100); HDL CHOLESTEROL 45 mg/dL; LDL CHOLESTEROL,CALCULATED 106 mg/dL; LDL/HDL RATIO 2.4 (<3.6); POTASSIUM 4.7 mmol/L (3.5-5.0); SODIUM 137 mmol/L (135-145); TOTAL PROTEIN 7.3 g/dL (6.7-8.2); TRIGLYCERIDES 110 mg/dL; VLDL CHOLESTEROL 22 mg/dL
[2021-02-28 12:51] LABS: ESTIMATED AVERAGE GLUCOSE 237 mg/dL (70-100); HEMOGLOBIN A1c% 9.9 % (4.27-6.07)
== END 2021-02-28 23:59 | disposition home or self-care (01) ==
LOC: LAB.WCP 08:00
PROVIDERS: ATTEND Internal Medicine
DX: E78.5 Hyperlipidemia, unspecified (principal); E11.22 Type 2 diabetes mellitus with diabetic chronic kidney disease; N18.30 Chronic kidney disease, stage 3 unspecified; E11.49 Type 2 diabetes mellitus with other diabetic neurological complication
CPT/HCPCS: 36415; 80053; 80061; 83036; 83721

== ENCOUNTER 2021-05-11 08:00 | Outpatient (CLI) | payer MEDICARE | END 2021-05-11 23:59 | disposition home or self-care (01) | LOC: LAB.WCP 08:00 | PROVIDERS: ATTEND Orthopaedic Surgery Foot and Ankle Surgery | DX: E11.621 Type 2 diabetes mellitus with foot ulcer (principal); M14.672 Charcot's joint, left ankle and foot | CPT/HCPCS: 36415; 82985 ==

== ENCOUNTER 2021-06-22 07:50 | Outpatient (CLI) | payer MEDICARE ==
[2021-06-22 08:35] LABS: BUN - BLOOD UREA NITROGEN 24 mg/dL (6-20); CALCIUM 9.9 mg/dL (8.5-10.3); CARBON DIOXIDE - CO2 29 mmol/L (21-32); CHLORIDE 101 mmol/L (101-111); CHOL/HDL RATIO 4.1 (<5.0); CHOLESTEROL 148 mg/dL; CREATININE 1.4 mg/dL (0.6-1.2); GFR - MDRD 51 (>89); GLUCOSE 125 mg/dL (70-100); HDL CHOLESTEROL 36 mg/dL; LDL CHOLESTEROL,CALCULATED 93 mg/dL; LDL/HDL RATIO 2.6 (<3.6); POTASSIUM 4.4 mmol/L (3.5-5.0); SODIUM 144 mmol/L (135-145); TRIGLYCERIDES 95 mg/dL; VLDL CHOLESTEROL 19 mg/dL
[2021-06-22 09:53] LABS: ESTIMATED AVERAGE GLUCOSE 194 mg/dL (70-100); HEMOGLOBIN A1c% 8.4 % (4.27-6.07)
[2021-06-23 17:01] LABS: CREATININE,URINE 108.6 mg/dL; MICROALBUM/CREATININE RATIO,UR 86.6 ug/mg (<30.0); MICROALBUMIN,URINE 9.4 mg/dL (0-300.0)
== END 2021-06-22 07:51 | disposition home or self-care (01) ==
LOC: LAB 07:50
PROVIDERS: ATTEND Internal Medicine
DX: E11.42 Type 2 diabetes mellitus with diabetic polyneuropathy (principal)
CPT/HCPCS: 36415; 80048; 80061; 82043; 82570; 83036; 83721

== ENCOUNTER 2021-10-18 16:09 | Outpatient (CLI) | payer MEDICARE ==
[2021-10-18 16:19] LABS: BASOPHILS % (AUTO) 0.7 %; EOSINOPHILS # (AUTO) 0.1 10^3/uL (0.0-0.7); EOSINOPHILS % (AUTO) 2.2 %; HCT - HEMATOCRIT 24.1 % (42.0-52.0); LYMPHOCYTES # (AUTO) 0.6 10^3/uL (1.5-3.5); LYMPHOCYTES % (AUTO) 10.6 %; MEAN CORPUSCULAR HEMOGLOBIN 27.4 pg (27.0-31.0); MEAN CORPUSCULAR HGB CONC 33.2 g/dL (32.0-36.0); MEAN CORPUSCULAR VOLUME 82.5 fL (80.0-94.0); MEAN PLATELET VOLUME 9.2 fL (7.4-11.4); MONOCYTES # (AUTO) 0.5 10^3/uL (0.0-1.0); MONOCYTES % (AUTO) 8.9 %; NEUTROPHILS # (AUTO) 4.5 10^3/uL (1.5-6.6); NEUTROPHILS % (AUTO) 77.3 %; PLT - PLATELET COUNT 367 10^3/uL (130-450); RED BLOOD COUNT 2.92 10^6/uL (4.70-6.10); RED CELL DISTRIBUTION WIDTH 16.2 % (12.0-15.0); WHITE BLOOD COUNT 5.8 x10^3/uL (4.8-10.8)
[2021-10-18 16:34] LABS: ALBUMIN 2.4 g/dL (3.2-5.5); ALBUMIN/GLOBULIN RATIO 0.7 (1.0-2.2); BILIRUBIN,TOTAL 0.7 mg/dL (0.2-1.0); CRP - C-REACTIVE PROTEIN 18.7 mg/dL (0-1.0); POTASSIUM 4.2 mmol/L (3.5-5.0); TOTAL PROTEIN 5.7 g/dL (6.7-8.2)
== END 2021-10-18 16:10 | disposition home or self-care (01) ==
LOC: LAB 16:09 → LAB.R 16:10
PROVIDERS: ATTEND Internal Medicine Infectious Disease
DX: L97.523 Non-pressure chronic ulcer of other part of left foot with necrosis of muscle (principal); T84.7XXA Infection and inflammatory reaction due to other internal orthopedic prosthetic devices, implants and grafts, initial encounter; B96.5 Pseudomonas (aeruginosa) (mallei) (pseudomallei) as the cause of diseases classified elsewhere
CPT/HCPCS: 80053; 85025; 86140

== ENCOUNTER 2021-10-22 15:18 | Outpatient (CLI) | payer MEDICARE ==
[2021-10-22 15:49] LABS: BASOPHILS % (AUTO) 0.6 %; EOSINOPHILS # (AUTO) 0.2 10^3/uL (0.0-0.7); EOSINOPHILS % (AUTO) 2.9 %; HCT - HEMATOCRIT 25.3 % (42.0-52.0); LYMPHOCYTES # (AUTO) 1.1 10^3/uL (1.5-3.5); LYMPHOCYTES % (AUTO) 15.8 %; MEAN CORPUSCULAR HEMOGLOBIN 26.4 pg (27.0-31.0); MEAN CORPUSCULAR HGB CONC 31.6 g/dL (32.0-36.0); MEAN CORPUSCULAR VOLUME 83.5 fL (80.0-94.0); MEAN PLATELET VOLUME 8.8 fL (7.4-11.4); MONOCYTES # (AUTO) 0.5 10^3/uL (0.0-1.0); MONOCYTES % (AUTO) 6.9 %; NEUTROPHILS # (AUTO) 4.9 10^3/uL (1.5-6.6); NEUTROPHILS % (AUTO) 72.3 %; PLT - PLATELET COUNT 600 10^3/uL (130-450); RED BLOOD COUNT 3.03 10^6/uL (4.70-6.10); RED CELL DISTRIBUTION WIDTH 16.2 % (12.0-15.0); WHITE BLOOD COUNT 6.8 x10^3/uL (4.8-10.8)
[2021-10-22 16:10] LABS: ALBUMIN 2.5 g/dL (3.2-5.5); ALBUMIN/GLOBULIN RATIO 0.8 (1.0-2.2); BILIRUBIN,TOTAL 0.3 mg/dL (0.2-1.0); CALCIUM 8.8 mg/dL (8.5-10.3); CRP - C-REACTIVE PROTEIN 4.6 mg/dL (0-1.0); POTASSIUM 4.4 mmol/L (3.5-5.0); TOTAL PROTEIN 5.5 g/dL (6.7-8.2)
== END 2021-10-22 15:19 | disposition home or self-care (01) ==
LOC: LAB.R 15:18
PROVIDERS: ATTEND Internal Medicine Infectious Disease
DX: L97.523 Non-pressure chronic ulcer of other part of left foot with necrosis of muscle (principal); T84.7XXA Infection and inflammatory reaction due to other internal orthopedic prosthetic devices, implants and grafts, initial encounter; B96.5 Pseudomonas (aeruginosa) (mallei) (pseudomallei) as the cause of diseases classified elsewhere
CPT/HCPCS: 80053; 85025; 86140

== ENCOUNTER 2021-10-25 09:45 | Outpatient (CLI) | payer MEDICARE ==
[2021-10-25 09:53] LABS: BASOPHILS % (AUTO) 0.5 %; EOSINOPHILS # (AUTO) 0.1 10^3/uL (0.0-0.7); EOSINOPHILS % (AUTO) 1.6 %; HCT - HEMATOCRIT 26.5 % (42.0-52.0); HGB - HEMOGLOBIN 8.4 g/dL (14.0-18.0); LYMPHOCYTES % (AUTO) 12.9 %; MEAN CORPUSCULAR HEMOGLOBIN 26.7 pg (27.0-31.0); MEAN CORPUSCULAR HGB CONC 31.7 g/dL (32.0-36.0); MEAN CORPUSCULAR VOLUME 84.1 fL (80.0-94.0); MEAN PLATELET VOLUME 8.6 fL (7.4-11.4); MONOCYTES # (AUTO) 0.4 10^3/uL (0.0-1.0); MONOCYTES % (AUTO) 5.7 %; NEUTROPHILS # (AUTO) 5.9 10^3/uL (1.5-6.6); NEUTROPHILS % (AUTO) 78.8 %; PLT - PLATELET COUNT 665 10^3/uL (130-450); RED BLOOD COUNT 3.15 10^6/uL (4.70-6.10); RED CELL DISTRIBUTION WIDTH 16.1 % (12.0-15.0); WHITE BLOOD COUNT 7.5 x10^3/uL (4.8-10.8)
[2021-10-25 10:17] LABS: ALBUMIN 2.6 g/dL (3.2-5.5); ALBUMIN/GLOBULIN RATIO 0.8 (1.0-2.2); BILIRUBIN,TOTAL 0.6 mg/dL (0.2-1.0); CALCIUM 8.8 mg/dL (8.5-10.3); CRP - C-REACTIVE PROTEIN 1.2 mg/dL (0-1.0); POTASSIUM 4.3 mmol/L (3.5-5.0)
== END 2021-10-25 09:46 | disposition home or self-care (01) ==
LOC: LAB.R 09:45
PROVIDERS: ATTEND Internal Medicine Infectious Disease
DX: L97.523 Non-pressure chronic ulcer of other part of left foot with necrosis of muscle (principal); B96.5 Pseudomonas (aeruginosa) (mallei) (pseudomallei) as the cause of diseases classified elsewhere; T84.7XXA Infection and inflammatory reaction due to other internal orthopedic prosthetic devices, implants and grafts, initial encounter
CPT/HCPCS: 80053; 85025; 86140

== ENCOUNTER 2021-10-29 15:03 | Outpatient (CLI) | payer MEDICARE ==
[2021-10-29 15:25] LABS: BASOPHILS % (AUTO) 0.5 %; EOSINOPHILS # (AUTO) 0.1 10^3/uL (0.0-0.7); HCT - HEMATOCRIT 29.5 % (42.0-52.0); HGB - HEMOGLOBIN 9.6 g/dL (14.0-18.0); LYMPHOCYTES # (AUTO) 0.8 10^3/uL (1.5-3.5); LYMPHOCYTES % (AUTO) 10.7 %; MEAN CORPUSCULAR HGB CONC 32.5 g/dL (32.0-36.0); MEAN CORPUSCULAR VOLUME 83.1 fL (80.0-94.0); MONOCYTES # (AUTO) 0.6 10^3/uL (0.0-1.0); MONOCYTES % (AUTO) 7.1 %; NEUTROPHILS # (AUTO) 6.3 10^3/uL (1.5-6.6); NEUTROPHILS % (AUTO) 80.2 %; PLT - PLATELET COUNT 605 10^3/uL (130-450); RED BLOOD COUNT 3.55 10^6/uL (4.70-6.10); RED CELL DISTRIBUTION WIDTH 15.7 % (12.0-15.0); WHITE BLOOD COUNT 7.8 x10^3/uL (4.8-10.8)
[2021-10-29 15:45] LABS: ALBUMIN/GLOBULIN RATIO 0.9 (1.0-2.2); ALKALINE PHOSPHATASE 203 IU/L (42-121); ALT ALANINE AMINOTRANSFERASE 22 IU/L (10-60); AST ASPARTATE AMINOTRANSFERASE 23 IU/L (10-42); BILIRUBIN,TOTAL 0.4 mg/dL (0.2-1.0); BUN - BLOOD UREA NITROGEN 20 mg/dL (6-20); CARBON DIOXIDE - CO2 28 mmol/L (21-32); CHLORIDE 99 mmol/L (101-111); GFR - MDRD 75 (>89); GLUCOSE 75 mg/dL (70-100); POTASSIUM 4.1 mmol/L (3.5-5.0); SODIUM 135 mmol/L (135-145); TOTAL PROTEIN 6.4 g/dL (6.7-8.2)
[2021-10-29 16:01] LABS: CRP - C-REACTIVE PROTEIN < 1.0 mg/dL (0-1.0)
== END 2021-10-29 15:04 | disposition home or self-care (01) ==
LOC: LAB.R 15:03
PROVIDERS: ATTEND Internal Medicine Infectious Disease
DX: L97.523 Non-pressure chronic ulcer of other part of left foot with necrosis of muscle (principal); B96.5 Pseudomonas (aeruginosa) (mallei) (pseudomallei) as the cause of diseases classified elsewhere; T84.7XXA Infection and inflammatory reaction due to other internal orthopedic prosthetic devices, implants and grafts, initial encounter
CPT/HCPCS: 80053; 85025; 86140

== ENCOUNTER 2021-11-01 09:26 | Outpatient (CLI) | payer MEDICARE ==
[2021-11-01 09:33] LABS: BASOPHILS # (AUTO) 0.1 10^3/uL (0.0-0.1); BASOPHILS % (AUTO) 1.1 %; EOSINOPHILS # (AUTO) 0.2 10^3/uL (0.0-0.7); EOSINOPHILS % (AUTO) 2.7 %; HCT - HEMATOCRIT 29.5 % (42.0-52.0); HGB - HEMOGLOBIN 9.4 g/dL (14.0-18.0); LYMPHOCYTES # (AUTO) 1.3 10^3/uL (1.5-3.5); LYMPHOCYTES % (AUTO) 18.3 %; MEAN CORPUSCULAR HEMOGLOBIN 26.5 pg (27.0-31.0); MEAN CORPUSCULAR HGB CONC 31.9 g/dL (32.0-36.0); MEAN CORPUSCULAR VOLUME 83.1 fL (80.0-94.0); MEAN PLATELET VOLUME 8.9 fL (7.4-11.4); MONOCYTES # (AUTO) 0.7 10^3/uL (0.0-1.0); MONOCYTES % (AUTO) 9.9 %; NEUTROPHILS # (AUTO) 4.7 10^3/uL (1.5-6.6); NEUTROPHILS % (AUTO) 67.7 %; PLT - PLATELET COUNT 496 10^3/uL (130-450); RED BLOOD COUNT 3.55 10^6/uL (4.70-6.10); RED CELL DISTRIBUTION WIDTH 15.7 % (12.0-15.0)
[2021-11-01 09:49] LABS: ALKALINE PHOSPHATASE 197 IU/L (42-121); ALT ALANINE AMINOTRANSFERASE 22 IU/L (10-60); AST ASPARTATE AMINOTRANSFERASE 22 IU/L (10-42); BILIRUBIN,TOTAL 0.3 mg/dL (0.2-1.0); BUN - BLOOD UREA NITROGEN 15 mg/dL (6-20); CALCIUM 8.5 mg/dL (8.5-10.3); CARBON DIOXIDE - CO2 29 mmol/L (21-32); CHLORIDE 100 mmol/L (101-111); GFR - MDRD 75 (>89); GLUCOSE 74 mg/dL (70-100); POTASSIUM 4.2 mmol/L (3.5-5.0); SODIUM 138 mmol/L (135-145); TOTAL PROTEIN 5.9 g/dL (6.7-8.2)
[2021-11-01 09:53] LABS: CRP - C-REACTIVE PROTEIN < 1.0 mg/dL (0-1.0)
== END 2021-11-01 09:27 | disposition home or self-care (01) ==
LOC: LAB.R 09:26
PROVIDERS: ATTEND Internal Medicine Infectious Disease
DX: E11.621 Type 2 diabetes mellitus with foot ulcer (principal); T84.7XXA Infection and inflammatory reaction due to other internal orthopedic prosthetic devices, implants and grafts, initial encounter; B96.5 Pseudomonas (aeruginosa) (mallei) (pseudomallei) as the cause of diseases classified elsewhere
CPT/HCPCS: 80053; 85025; 86140

== ENCOUNTER 2021-11-05 16:30 | Outpatient (CLI) | payer MEDICARE ==
[2021-11-05 16:50] LABS: BASOPHILS # (AUTO) 0.1 10^3/uL (0.0-0.1); BASOPHILS % (AUTO) 1.5 %; EOSINOPHILS # (AUTO) 0.2 10^3/uL (0.0-0.7); EOSINOPHILS % (AUTO) 4.8 %; HCT - HEMATOCRIT 30.7 % (42.0-52.0); HGB - HEMOGLOBIN 9.6 g/dL (14.0-18.0); LYMPHOCYTES % (AUTO) 21.1 %; MEAN CORPUSCULAR HEMOGLOBIN 26.2 pg (27.0-31.0); MEAN CORPUSCULAR HGB CONC 31.3 g/dL (32.0-36.0); MEAN CORPUSCULAR VOLUME 83.9 fL (80.0-94.0); MEAN PLATELET VOLUME 9.7 fL (7.4-11.4); MONOCYTES # (AUTO) 0.5 10^3/uL (0.0-1.0); MONOCYTES % (AUTO) 11.1 %; NEUTROPHILS # (AUTO) 2.9 10^3/uL (1.5-6.6); NEUTROPHILS % (AUTO) 61.3 %; PLT - PLATELET COUNT 352 10^3/uL (130-450); RED BLOOD COUNT 3.66 10^6/uL (4.70-6.10); RED CELL DISTRIBUTION WIDTH 15.8 % (12.0-15.0); WHITE BLOOD COUNT 4.8 x10^3/uL (4.8-10.8)
[2021-11-05 17:03] LABS: ALBUMIN/GLOBULIN RATIO 0.9 (1.0-2.2); ALKALINE PHOSPHATASE 203 IU/L (42-121); ALT ALANINE AMINOTRANSFERASE 21 IU/L (10-60); AST ASPARTATE AMINOTRANSFERASE 19 IU/L (10-42); BILIRUBIN,TOTAL 0.5 mg/dL (0.2-1.0); BUN - BLOOD UREA NITROGEN 22 mg/dL (6-20); CALCIUM 8.8 mg/dL (8.5-10.3); CARBON DIOXIDE - CO2 30 mmol/L (21-32); CHLORIDE 98 mmol/L (101-111); CREATININE 1.2 mg/dL (0.6-1.2); GFR - MDRD 61 (>89); GLUCOSE 139 mg/dL (70-100); POTASSIUM 4.6 mmol/L (3.5-5.0); SODIUM 134 mmol/L (135-145); TOTAL PROTEIN 6.2 g/dL (6.7-8.2)
[2021-11-05 17:04] LABS: CRP - C-REACTIVE PROTEIN < 1.0 mg/dL (0-1.0)
== END 2021-11-05 16:31 | disposition home or self-care (01) ==
LOC: LAB.R 16:30
PROVIDERS: ATTEND Internal Medicine Infectious Disease
DX: T84.7XXA Infection and inflammatory reaction due to other internal orthopedic prosthetic devices, implants and grafts, initial encounter (principal); B96.5 Pseudomonas (aeruginosa) (mallei) (pseudomallei) as the cause of diseases classified elsewhere
CPT/HCPCS: 80053; 85025; 86140

== ENCOUNTER 2021-11-08 10:02 | Outpatient (CLI) | payer MEDICARE ==
[2021-11-08 10:11] LABS: BASOPHILS # (AUTO) 0.1 10^3/uL (0.0-0.1); EOSINOPHILS # (AUTO) 0.2 10^3/uL (0.0-0.7); EOSINOPHILS % (AUTO) 4.1 %; HCT - HEMATOCRIT 31.2 % (42.0-52.0); LYMPHOCYTES # (AUTO) 0.8 10^3/uL (1.5-3.5); LYMPHOCYTES % (AUTO) 16.3 %; MEAN CORPUSCULAR HEMOGLOBIN 26.7 pg (27.0-31.0); MEAN CORPUSCULAR HGB CONC 32.1 g/dL (32.0-36.0); MEAN CORPUSCULAR VOLUME 83.2 fL (80.0-94.0); MEAN PLATELET VOLUME 9.5 fL (7.4-11.4); MONOCYTES # (AUTO) 0.5 10^3/uL (0.0-1.0); MONOCYTES % (AUTO) 8.7 %; NEUTROPHILS # (AUTO) 3.6 10^3/uL (1.5-6.6); NEUTROPHILS % (AUTO) 69.7 %; PLT - PLATELET COUNT 257 10^3/uL (130-450); RED BLOOD COUNT 3.75 10^6/uL (4.70-6.10); RED CELL DISTRIBUTION WIDTH 15.6 % (12.0-15.0); WHITE BLOOD COUNT 5.2 x10^3/uL (4.8-10.8)
[2021-11-08 10:31] LABS: ALBUMIN 3.2 g/dL (3.2-5.5); ALKALINE PHOSPHATASE 191 IU/L (42-121); ALT ALANINE AMINOTRANSFERASE 17 IU/L (10-60); AST ASPARTATE AMINOTRANSFERASE 18 IU/L (10-42); BILIRUBIN,TOTAL 0.7 mg/dL (0.2-1.0); BUN - BLOOD UREA NITROGEN 35 mg/dL (6-20); CALCIUM 8.9 mg/dL (8.5-10.3); CARBON DIOXIDE - CO2 29 mmol/L (21-32); CHLORIDE 100 mmol/L (101-111); CREATININE 1.3 mg/dL (0.6-1.2); GFR - MDRD 56 (>89); GLUCOSE 145 mg/dL (70-100); POTASSIUM 4.6 mmol/L (3.5-5.0); SODIUM 135 mmol/L (135-145); TOTAL PROTEIN 6.5 g/dL (6.7-8.2)
[2021-11-08 10:41] LABS: CRP - C-REACTIVE PROTEIN < 1.0 mg/dL (0-1.0)
== END 2021-11-08 10:03 | disposition home or self-care (01) ==
LOC: LAB.R 10:02
PROVIDERS: ATTEND Internal Medicine Infectious Disease
DX: E11.621 Type 2 diabetes mellitus with foot ulcer (principal); B96.5 Pseudomonas (aeruginosa) (mallei) (pseudomallei) as the cause of diseases classified elsewhere; T84.7XXA Infection and inflammatory reaction due to other internal orthopedic prosthetic devices, implants and grafts, initial encounter
CPT/HCPCS: 80053; 85025; 86140

== ENCOUNTER 2021-11-12 15:16 | Outpatient (CLI) | payer MEDICARE ==
[2021-11-12 15:28] LABS: BASOPHILS # (AUTO) 0.1 10^3/uL (0.0-0.1); BASOPHILS % (AUTO) 0.8 %; EOSINOPHILS # (AUTO) 0.2 10^3/uL (0.0-0.7); HCT - HEMATOCRIT 30.3 % (42.0-52.0); HGB - HEMOGLOBIN 9.5 g/dL (14.0-18.0); LYMPHOCYTES # (AUTO) 0.9 10^3/uL (1.5-3.5); LYMPHOCYTES % (AUTO) 15.6 %; MEAN CORPUSCULAR HGB CONC 31.4 g/dL (32.0-36.0); MEAN CORPUSCULAR VOLUME 82.8 fL (80.0-94.0); MONOCYTES # (AUTO) 0.7 10^3/uL (0.0-1.0); NEUTROPHILS # (AUTO) 4.1 10^3/uL (1.5-6.6); NEUTROPHILS % (AUTO) 68.1 %; PLT - PLATELET COUNT 191 10^3/uL (130-450); RED BLOOD COUNT 3.66 10^6/uL (4.70-6.10); RED CELL DISTRIBUTION WIDTH 16.1 % (12.0-15.0)
[2021-11-12 15:50] LABS: ALBUMIN 3.2 g/dL (3.2-5.5); ALKALINE PHOSPHATASE 171 IU/L (42-121); ALT ALANINE AMINOTRANSFERASE 20 IU/L (10-60); AST ASPARTATE AMINOTRANSFERASE 19 IU/L (10-42); BILIRUBIN,TOTAL 0.7 mg/dL (0.2-1.0); BUN - BLOOD UREA NITROGEN 20 mg/dL (6-20); CALCIUM 8.8 mg/dL (8.5-10.3); CARBON DIOXIDE - CO2 29 mmol/L (21-32); CHLORIDE 99 mmol/L (101-111); CREATININE 1.1 mg/dL (0.6-1.2); GFR - MDRD 68 (>89); GLUCOSE 75 mg/dL (70-100); POTASSIUM 4.4 mmol/L (3.5-5.0); SODIUM 137 mmol/L (135-145); TOTAL PROTEIN 6.4 g/dL (6.7-8.2)
[2021-11-12 15:58] LABS: CRP - C-REACTIVE PROTEIN < 1.0 mg/dL (0-1.0)
== END 2021-11-12 15:17 | disposition home or self-care (01) ==
LOC: LAB.R 15:16
PROVIDERS: ATTEND Internal Medicine Infectious Disease
DX: M86.372 Chronic multifocal osteomyelitis, left ankle and foot (principal)
CPT/HCPCS: 80053; 85025; 86140

== ENCOUNTER 2021-11-19 15:51 | Outpatient (CLI) | payer MEDICARE ==
[2021-11-19 16:18] LABS: BASOPHILS # (AUTO) 0.1 10^3/uL (0.0-0.1); BASOPHILS % (AUTO) 1.1 %; EOSINOPHILS # (AUTO) 0.4 10^3/uL (0.0-0.7); EOSINOPHILS % (AUTO) 6.3 %; HGB - HEMOGLOBIN 10.6 g/dL (14.0-18.0); LYMPHOCYTES # (AUTO) 0.9 10^3/uL (1.5-3.5); LYMPHOCYTES % (AUTO) 16.1 %; MEAN CORPUSCULAR HEMOGLOBIN 26.6 pg (27.0-31.0); MEAN CORPUSCULAR HGB CONC 32.1 g/dL (32.0-36.0); MEAN CORPUSCULAR VOLUME 82.7 fL (80.0-94.0); MEAN PLATELET VOLUME 9.9 fL (7.4-11.4); MONOCYTES # (AUTO) 0.5 10^3/uL (0.0-1.0); MONOCYTES % (AUTO) 9.3 %; NEUTROPHILS # (AUTO) 3.7 10^3/uL (1.5-6.6); NEUTROPHILS % (AUTO) 66.8 %; PLT - PLATELET COUNT 254 10^3/uL (130-450); RED BLOOD COUNT 3.99 10^6/uL (4.70-6.10); RED CELL DISTRIBUTION WIDTH 15.9 % (12.0-15.0); WHITE BLOOD COUNT 5.6 x10^3/uL (4.8-10.8)
[2021-11-19 16:44] LABS: ALBUMIN 3.4 g/dL (3.2-5.5); ALBUMIN/GLOBULIN RATIO 1.1 (1.0-2.2); ALKALINE PHOSPHATASE 162 IU/L (42-121); ALT ALANINE AMINOTRANSFERASE 21 IU/L (10-60); AST ASPARTATE AMINOTRANSFERASE 20 IU/L (10-42); BILIRUBIN,TOTAL 0.6 mg/dL (0.2-1.0); BUN - BLOOD UREA NITROGEN 29 mg/dL (6-20); CARBON DIOXIDE - CO2 27 mmol/L (21-32); CHLORIDE 99 mmol/L (101-111); CREATININE 1.4 mg/dL (0.6-1.2); GFR - MDRD 51 (>89); GLUCOSE 106 mg/dL (70-100); POTASSIUM 4.4 mmol/L (3.5-5.0); SODIUM 135 mmol/L (135-145); TOTAL PROTEIN 6.4 g/dL (6.7-8.2)
[2021-11-19 17:20] LABS: CRP - C-REACTIVE PROTEIN < 1.0 mg/dL (0-1.0)
== END 2021-11-19 15:52 | disposition home or self-care (01) ==
LOC: LAB.R 15:51
PROVIDERS: ATTEND Internal Medicine Infectious Disease
DX: L97.523 Non-pressure chronic ulcer of other part of left foot with necrosis of muscle (principal); B96.5 Pseudomonas (aeruginosa) (mallei) (pseudomallei) as the cause of diseases classified elsewhere; M21.962 Unspecified acquired deformity of left lower leg
CPT/HCPCS: 80053; 85025; 86140

== ENCOUNTER 2021-11-22 09:26 | Outpatient (CLI) | payer MEDICARE ==
[2021-11-22 09:33] LABS: BASOPHILS # (AUTO) 0.1 10^3/uL (0.0-0.1); BASOPHILS % (AUTO) 1.1 %; EOSINOPHILS # (AUTO) 0.3 10^3/uL (0.0-0.7); EOSINOPHILS % (AUTO) 5.7 %; HCT - HEMATOCRIT 32.9 % (42.0-52.0); HGB - HEMOGLOBIN 10.4 g/dL (14.0-18.0); LYMPHOCYTES # (AUTO) 0.9 10^3/uL (1.5-3.5); LYMPHOCYTES % (AUTO) 17.9 %; MEAN CORPUSCULAR HEMOGLOBIN 26.5 pg (27.0-31.0); MEAN CORPUSCULAR HGB CONC 31.6 g/dL (32.0-36.0); MEAN CORPUSCULAR VOLUME 83.7 fL (80.0-94.0); MEAN PLATELET VOLUME 9.7 fL (7.4-11.4); MONOCYTES # (AUTO) 0.6 10^3/uL (0.0-1.0); MONOCYTES % (AUTO) 10.7 %; NEUTROPHILS # (AUTO) 3.4 10^3/uL (1.5-6.6); NEUTROPHILS % (AUTO) 64.4 %; PLT - PLATELET COUNT 282 10^3/uL (130-450); RED BLOOD COUNT 3.93 10^6/uL (4.70-6.10); RED CELL DISTRIBUTION WIDTH 15.9 % (12.0-15.0); WHITE BLOOD COUNT 5.2 x10^3/uL (4.8-10.8)
[2021-11-22 09:47] LABS: ALBUMIN 3.4 g/dL (3.2-5.5); ALBUMIN/GLOBULIN RATIO 1.1 (1.0-2.2); ALKALINE PHOSPHATASE 159 IU/L (42-121); ALT ALANINE AMINOTRANSFERASE 20 IU/L (10-60); AST ASPARTATE AMINOTRANSFERASE 21 IU/L (10-42); BILIRUBIN,TOTAL 0.5 mg/dL (0.2-1.0); BUN - BLOOD UREA NITROGEN 25 mg/dL (6-20); CALCIUM 8.8 mg/dL (8.5-10.3); CARBON DIOXIDE - CO2 28 mmol/L (21-32); CHLORIDE 100 mmol/L (101-111); CREATININE 1.1 mg/dL (0.6-1.2); GFR - MDRD 68 (>89); GLUCOSE 113 mg/dL (70-100); POTASSIUM 4.4 mmol/L (3.5-5.0); SODIUM 136 mmol/L (135-145); TOTAL PROTEIN 6.5 g/dL (6.7-8.2)
[2021-11-22 09:52] LABS: CRP - C-REACTIVE PROTEIN < 1.0 mg/dL (0-1.0)
== END 2021-11-22 09:27 | disposition home or self-care (01) ==
LOC: LAB.R 09:26
PROVIDERS: ATTEND Internal Medicine Infectious Disease
DX: L97.523 Non-pressure chronic ulcer of other part of left foot with necrosis of muscle (principal); B96.5 Pseudomonas (aeruginosa) (mallei) (pseudomallei) as the cause of diseases classified elsewhere; M21.962 Unspecified acquired deformity of left lower leg
CPT/HCPCS: 80053; 85025; 86140

== ENCOUNTER 2021-11-26 15:09 | Outpatient (CLI) | payer MEDICARE ==
[2021-11-26 15:21] LABS: BASOPHILS # (AUTO) 0.1 10^3/uL (0.0-0.1); BASOPHILS % (AUTO) 1.6 %; EOSINOPHILS # (AUTO) 0.4 10^3/uL (0.0-0.7); EOSINOPHILS % (AUTO) 8.5 %; HCT - HEMATOCRIT 32.8 % (42.0-52.0); HGB - HEMOGLOBIN 10.5 g/dL (14.0-18.0); LYMPHOCYTES # (AUTO) 1.1 10^3/uL (1.5-3.5); LYMPHOCYTES % (AUTO) 21.9 %; MEAN CORPUSCULAR HEMOGLOBIN 27.2 pg (27.0-31.0); MEAN PLATELET VOLUME 9.6 fL (7.4-11.4); MONOCYTES # (AUTO) 0.6 10^3/uL (0.0-1.0); MONOCYTES % (AUTO) 11.8 %; NEUTROPHILS # (AUTO) 2.7 10^3/uL (1.5-6.6); NEUTROPHILS % (AUTO) 55.6 %; PLT - PLATELET COUNT 312 10^3/uL (130-450); RED BLOOD COUNT 3.86 10^6/uL (4.70-6.10); RED CELL DISTRIBUTION WIDTH 16.3 % (12.0-15.0); WHITE BLOOD COUNT 4.9 x10^3/uL (4.8-10.8)
[2021-11-26 16:07] LABS: ALBUMIN 3.3 g/dL (3.2-5.5); ALBUMIN/GLOBULIN RATIO 1.1 (1.0-2.2); ALKALINE PHOSPHATASE 181 IU/L (42-121); ALT ALANINE AMINOTRANSFERASE 28 IU/L (10-60); AST ASPARTATE AMINOTRANSFERASE 27 IU/L (10-42); BILIRUBIN,TOTAL 0.5 mg/dL (0.2-1.0); BUN - BLOOD UREA NITROGEN 24 mg/dL (6-20); CALCIUM 9.2 mg/dL (8.5-10.3); CARBON DIOXIDE - CO2 28 mmol/L (21-32); CHLORIDE 102 mmol/L (101-111); CREATININE 1.2 mg/dL (0.6-1.2); GFR - MDRD 61 (>89); GLUCOSE 95 mg/dL (70-100); POTASSIUM 4.6 mmol/L (3.5-5.0); SODIUM 139 mmol/L (135-145); TOTAL PROTEIN 6.2 g/dL (6.7-8.2)
[2021-11-26 16:10] LABS: CRP - C-REACTIVE PROTEIN < 1.0 mg/dL (0-1.0)
== END 2021-11-26 15:10 | disposition home or self-care (01) ==
LOC: LAB.R 15:09
PROVIDERS: ATTEND Internal Medicine Infectious Disease
DX: T84.7XXA Infection and inflammatory reaction due to other internal orthopedic prosthetic devices, implants and grafts, initial encounter (principal); B96.5 Pseudomonas (aeruginosa) (mallei) (pseudomallei) as the cause of diseases classified elsewhere; E11.621 Type 2 diabetes mellitus with foot ulcer
CPT/HCPCS: 80053; 85025; 86140

== ENCOUNTER 2021-11-29 09:40 | Outpatient (CLI) | payer MEDICARE ==
[2021-11-29 10:11] LABS: BASOPHILS # (AUTO) 0.1 10^3/uL (0.0-0.1); BASOPHILS % (AUTO) 1.4 %; EOSINOPHILS # (AUTO) 0.3 10^3/uL (0.0-0.7); EOSINOPHILS % (AUTO) 6.4 %; HCT - HEMATOCRIT 31.6 % (42.0-52.0); HGB - HEMOGLOBIN 10.2 g/dL (14.0-18.0); LYMPHOCYTES # (AUTO) 0.8 10^3/uL (1.5-3.5); LYMPHOCYTES % (AUTO) 19.1 %; MEAN CORPUSCULAR HEMOGLOBIN 27.1 pg (27.0-31.0); MEAN CORPUSCULAR HGB CONC 32.3 g/dL (32.0-36.0); MEAN PLATELET VOLUME 9.9 fL (7.4-11.4); MONOCYTES # (AUTO) 0.6 10^3/uL (0.0-1.0); MONOCYTES % (AUTO) 12.6 %; NEUTROPHILS # (AUTO) 2.6 10^3/uL (1.5-6.6); NEUTROPHILS % (AUTO) 60.3 %; PLT - PLATELET COUNT 312 10^3/uL (130-450); RED BLOOD COUNT 3.76 10^6/uL (4.70-6.10); RED CELL DISTRIBUTION WIDTH 16.1 % (12.0-15.0); WHITE BLOOD COUNT 4.4 x10^3/uL (4.8-10.8)
[2021-11-29 11:34] LABS: ALBUMIN 3.3 g/dL (3.2-5.5); ALBUMIN/GLOBULIN RATIO 1.1 (1.0-2.2); ALKALINE PHOSPHATASE 147 IU/L (42-121); ALT ALANINE AMINOTRANSFERASE 36 IU/L (10-60); AST ASPARTATE AMINOTRANSFERASE 32 IU/L (10-42); BILIRUBIN,TOTAL 0.5 mg/dL (0.2-1.0); BUN - BLOOD UREA NITROGEN 29 mg/dL (6-20); CARBON DIOXIDE - CO2 29 mmol/L (21-32); CHLORIDE 100 mmol/L (101-111); CREATININE 1.3 mg/dL (0.6-1.2); GFR - MDRD 56 (>89); GLUCOSE 124 mg/dL (70-100); POTASSIUM 4.3 mmol/L (3.5-5.0); SODIUM 137 mmol/L (135-145); TOTAL PROTEIN 6.4 g/dL (6.7-8.2)
[2021-11-29 12:05] LABS: CRP - C-REACTIVE PROTEIN < 1.0 mg/dL (0-1.0)
== END 2021-11-29 09:41 | disposition home or self-care (01) ==
LOC: LAB.R 09:40
PROVIDERS: ATTEND Internal Medicine Infectious Disease
DX: T84.7XXA Infection and inflammatory reaction due to other internal orthopedic prosthetic devices, implants and grafts, initial encounter (principal); B96.5 Pseudomonas (aeruginosa) (mallei) (pseudomallei) as the cause of diseases classified elsewhere; E11.621 Type 2 diabetes mellitus with foot ulcer
CPT/HCPCS: 80053; 85025; 86140

== ENCOUNTER 2021-12-13 07:27 | Outpatient (CLI) | payer MEDICARE ==
[2021-12-13 11:53] LABS: ALBUMIN 3.9 g/dL (3.2-5.5); ALBUMIN/GLOBULIN RATIO 1.1 (1.0-2.2); ALKALINE PHOSPHATASE 142 IU/L (42-121); ALT ALANINE AMINOTRANSFERASE 18 IU/L (10-60); AST ASPARTATE AMINOTRANSFERASE 22 IU/L (10-42); BILIRUBIN,TOTAL 0.8 mg/dL (0.2-1.0); BUN - BLOOD UREA NITROGEN 19 mg/dL (6-20); CALCIUM 9.4 mg/dL (8.5-10.3); CARBON DIOXIDE - CO2 27 mmol/L (21-32); CHLORIDE 101 mmol/L (101-111); CHOL/HDL RATIO 3.8 (<5.0); CHOLESTEROL 163 mg/dL; CREATININE 1.4 mg/dL (0.6-1.2); GFR - MDRD 51 (>89); GLUCOSE 99 mg/dL (70-100); HDL CHOLESTEROL 43 mg/dL; LDL CHOLESTEROL,CALCULATED 96 mg/dL; LDL/HDL RATIO 2.2 (<3.6); POTASSIUM 3.9 mmol/L (3.5-5.0); SODIUM 138 mmol/L (135-145); TOTAL PROTEIN 7.4 g/dL (6.7-8.2); TRIGLYCERIDES 121 mg/dL; VLDL CHOLESTEROL 24 mg/dL
[2021-12-13 11:57] LABS: BASOPHILS % (AUTO) 0.7 %; EOSINOPHILS # (AUTO) 0.2 10^3/uL (0.0-0.7); EOSINOPHILS % (AUTO) 2.6 %; HCT - HEMATOCRIT 37.6 % (42.0-52.0); LYMPHOCYTES # (AUTO) 1.2 10^3/uL (1.5-3.5); LYMPHOCYTES % (AUTO) 20.9 %; MEAN CORPUSCULAR HEMOGLOBIN 26.7 pg (27.0-31.0); MEAN CORPUSCULAR HGB CONC 31.9 g/dL (32.0-36.0); MEAN CORPUSCULAR VOLUME 83.7 fL (80.0-94.0); MEAN PLATELET VOLUME 10.8 fL (7.4-11.4); MONOCYTES # (AUTO) 0.6 10^3/uL (0.0-1.0); MONOCYTES % (AUTO) 9.8 %; NEUTROPHILS # (AUTO) 3.8 10^3/uL (1.5-6.6); NEUTROPHILS % (AUTO) 65.5 %; PLT - PLATELET COUNT 228 10^3/uL (130-450); RED BLOOD COUNT 4.49 10^6/uL (4.70-6.10); RED CELL DISTRIBUTION WIDTH 16.5 % (12.0-15.0); WHITE BLOOD COUNT 5.8 x10^3/uL (4.8-10.8)
[2021-12-13 12:06] LABS: CRP - C-REACTIVE PROTEIN < 1.0 mg/dL (0-1.0)
[2021-12-13 13:07] LABS: ESTIMATED AVERAGE GLUCOSE 151 mg/dL (70-100); HEMOGLOBIN A1c% 6.9 % (4.27-6.07)
== END 2021-12-13 07:28 | disposition home or self-care (01) ==
LOC: LAB.N 07:27
PROVIDERS: ATTEND Internal Medicine Infectious Disease
DX: M86.372 Chronic multifocal osteomyelitis, left ankle and foot (principal); E11.42 Type 2 diabetes mellitus with diabetic polyneuropathy
CPT/HCPCS: 36415; 80053; 80061; 83036; 83721; 85025; 86140

== ENCOUNTER 2022-04-15 07:22 | Outpatient (CLI) | payer MEDICARE ==
[2022-04-15 12:13] LABS: CREATININE 1.4 mg/dL (0.6-1.2); POTASSIUM 4.4 mmol/L (3.5-5.0)
[2022-04-15 13:19] LABS: ESTIMATED AVERAGE GLUCOSE 186 mg/dL (70-100); HEMOGLOBIN A1c% 8.1 % (4.27-6.07)
== END 2022-04-15 07:23 | disposition home or self-care (01) ==
LOC: LAB.N 07:22
PROVIDERS: ATTEND Internal Medicine
DX: E11.42 Type 2 diabetes mellitus with diabetic polyneuropathy (principal); Z12.5 Encounter for screening for malignant neoplasm of prostate
CPT/HCPCS: 36415; 80048; 83036; G0103; 84153

== ENCOUNTER 2022-11-19 07:18 | Outpatient (CLI) | payer MEDICARE ==
[2022-11-19 07:44] LABS: CALCIUM 9.3 mg/dL (8.5-10.3); CREATININE 1.3 mg/dL (0.6-1.2); POTASSIUM 4.2 mmol/L (3.5-5.0)
[2022-11-19 11:16] LABS: ESTIMATED AVERAGE GLUCOSE 237 mg/dL (70-100); HEMOGLOBIN A1c% 9.9 % (4.27-6.07)
== END 2022-11-19 07:19 | disposition home or self-care (01) ==
LOC: LAB 07:18
PROVIDERS: ATTEND Internal Medicine
DX: E11.42 Type 2 diabetes mellitus with diabetic polyneuropathy (principal)
CPT/HCPCS: 36415; 80048; 83036

== ENCOUNTER 2022-11-29 13:20 | Emergency (ER) | payer MEDICARE ==
[2022-11-29 13:42] LABS: BASOPHILS # (AUTO) 0.1 10^3/uL (0.0-0.1); BASOPHILS % (AUTO) 0.8 %; EOSINOPHILS # (AUTO) 0.2 10^3/uL (0.0-0.7); EOSINOPHILS % (AUTO) 2.3 %; HCT - HEMATOCRIT 47.3 % (42.0-52.0); LYMPHOCYTES # (AUTO) 1.2 10^3/uL (1.5-3.5); LYMPHOCYTES % (AUTO) 17.9 %; MEAN CORPUSCULAR HEMOGLOBIN 29.1 pg (27.0-31.0); MEAN CORPUSCULAR HGB CONC 33.8 g/dL (32.0-36.0); MEAN PLATELET VOLUME 9.2 fL (7.4-11.4); MONOCYTES # (AUTO) 0.6 10^3/uL (0.0-1.0); MONOCYTES % (AUTO) 8.3 %; NEUTROPHILS # (AUTO) 4.7 10^3/uL (1.5-6.6); NEUTROPHILS % (AUTO) 70.2 %; PLT - PLATELET COUNT 235 10^3/uL (130-450); RED CELL DISTRIBUTION WIDTH 13.3 % (12.0-15.0); WHITE BLOOD COUNT 6.6 x10^3/uL (4.8-10.8)
[2022-11-29 14:00] LABS: ALBUMIN 4.3 g/dL (3.2-5.5); ALBUMIN/GLOBULIN RATIO 1.3 (1.0-2.2); BILIRUBIN,TOTAL 0.9 mg/dL (0.2-1.0); CALCIUM 9.1 mg/dL (8.5-10.3); CREATININE 1.5 mg/dL (0.6-1.2); POTASSIUM 4.1 mmol/L (3.5-5.0); TOTAL PROTEIN 7.7 g/dL (6.7-8.2)
--- NOTE | 2022-11-29 14:36 | ED Physician Documentation ---
PD HPI FOCAL NEURO - Stated complaint Stated Complaint: UNSTABLE/DIZZY - Chief complaint Chief Complaint: Neuro - History obtained from History obtained from: Patient - History of Present Illness Timing - onset: How many days ago (3) Timing - duration: Minutes Timing - details: Abrupt onset, Now resolved, Intermittant (he has had room spinning vertigo that starts when he gets up, turns head, or bends head down for the past 3 days. It improves once up for a minute or so, and does not develop during rest/ holding head still.) Severity of deficit: Moderate Weakness: No: Face, Arm, Leg Numbness: No: Face, Arm, Leg Associated symptoms: Nausea / vomiting (when the vertigo is worst.). No: Headache, Seizure, Head injury, Chest pain, Neck pain Contributing factors: negative: Anticoagulated, Atrial fibrillation Baseline status: positive: A&OX3, ambulatory, indep, Cane Similar symptoms before: Has not had sx before Recently seen: Not recently seen Review of Systems Constitutional: denies: Fever, Chills Eyes: denies: Loss of vision, Photophobia Ears: reports: Tinnitus/ringing Nose: reports: Rhinorrhea / runny nose, Congestion Throat: denies: Dental pain / toothache, Oral lesions / sores Cardiac: denies: Chest pain / pressure, Palpitations Respiratory: denies: Cough GI: reports: Nausea. denies: Vomiting, Constipation, Diarrhea Skin: denies: Rash, Lesions Musculoskeletal: denies: Neck pain, Back pain Neurologic: denies: Focal weakness, Numbness, Syncope, Altered mental status PD PAST MEDICAL HISTORY - Past Medical History Cardiovascular: Hypertension, High cholesterol Respiratory: None Neuro: Peripheral neuropathy Endocrine/Autoimmune: Type 2 diabetes GI: Hiatal hernia : Renal insuffiency HEENT: Chronic vision loss Psych: None Musculoskeletal: None Derm: None - Past Surgical History Past Surgical History: Yes General: Colonoscopy Ortho: Other HEENT: Cataracts, Detached retina repair - Present Medications Home Medications: Ambulatory Orders Medication Instructions Recorded Confirmed Aspirin [Ecotrin] 81 mg PO DAILY 01/05/15 09/27/21 Insulin Glargine [Lantus] 60 units SUBQ BID 11/24/16 09/27/21 Insulin Aspart (Vial) [NovoLOG 20 unit SUBQ TID 08/13/18 09/27/21 (VIAL FOR ED USE)] Losartan Potassium 50 mg PO DAILY 08/13/18 09/27/21 Pioglitazone [Actos] 15 mg PO DAILY 10/12/20 09/27/21 amLODIPine [Norvasc] 5 mg PO DAILY 10/12/20 09/27/21 Plopketjhtmk-Ggpr-Xwgjysrw,Iso 1 misc IV DAILY 08/05/21 09/27/21 [Zosyn 3.375 gm/50 ml Galaxy] Cetirizine [ZyrTEC] 10 mg PO BID #40 tablet 11/29/22 Meclizine HCl [Motion Sickness] 25 mg PO Q6H PRN #30 tablet 11/29/22 - Allergies Allergies/Adverse Reactions: Allergies Allergy/AdvReac Type Severity Reaction Status Date / Time No Known Drug Allergies Allergy Verified 11/29/22 13:28 - Social History Does the pt smoke?: No Smoking Status: Former smoker Does the pt drink ETOH?: No Does the pt have substance abuse?: No - Immunizations Immunizations are current?: Yes - POLST Patient has POLST: No PD ED PE NORMAL - Vitals Vital signs reviewed: Yes - General General: Alert and oriented X 3, No acute distress, Well developed/nourished - HEENT HEENT: PERRL, EOMI, Pharynx benign. 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, No motor deficit, No sensory deficit, Normal speech Eye Opening: Spontaneous Motor: Obeys Commands Verbal: Oriented GCS Score: 15 NIHSS - Level of Consciousness Level of consciousness: (0) Alert, Keenly responsive LOC Questions: (0) Answers both Q's correct LOC Commands: (0) Performs both correctly - Gaze Best Gaze: (0) Normal - Visual Visual: (0) No loss - Facial Palsy Facial Palsy: (0) Normal, symmetrical movement - Motor Arms (both separate) Motor Arm (right): (0) No drift Motor Arm (left): (0) No drift - Motor Legs (both separate) Motor Leg (right): (0) No drift Motor Leg (left): (0) No drift - Limb Ataxia Limb Ataxia: (0) Absent - Sensory Sensory: (0) Normal - Best Language Best Language: (0) No aphasia - Dysarthria Dysarthria: (0) Normal - Extinction and Inattention (formally neg Extinction and inattention: (0) No abnormality - Total Score/Results Total Score/Result: 0 Results - Vitals Vitals: Vital Signs - 24 hr 11/29/22 11/29/22 13:23 15:00 Temperature 36.2 C L Heart Rate 82 72 Respiratory 16 18 Rate Blood Pressure 144/77 H 155/76 H O2 Saturation 99 98 Oxygen O2 Source Room air - EKG (time done) 13:43 EKG releavant findings:: EKG personally interpreted by author of this note. Relevant findings are: Rate: Rate (enter#) (78) Rhythm: NSR [place]: Normal Intervals: Normal DC QRS: Normal Ischemia: Normal ST segments. No: ST elevation c/w ischemia, ST depression - Labs Labs: Laboratory Tests 11/29/22 11/29/22 11/29/22 13:37 13:37 13:37 WBC 6.6 RBC 5.50 Hgb 16.0 Hct 47.3 MCV 86.0 MCH 29.1 MCHC 33.8 RDW 13.3 Plt Count 235 MPV 9.2 Neut # (Auto) 4.7 Lymph # (Auto) 1.2 L [place] # (Auto) 0.6 Eos # (Auto) 0.2 Baso # (Auto) 0.1 Absolute Nucleated RBC 0.00 Nucleated RBC % 0.0 Sodium 137 Potassium 4.1 Chloride 102 Carbon Dioxide 26 Anion Gap 9.0 BUN 21 H Creatinine 1.5 H Estimated GFR (MDRD) 47 L Glucose 163 H Calcium 9.1 Total Bilirubin 0.9 AST 26 ALT 34 Alkaline Phosphatase 152 H Troponin I High Sens 6.1 Total Protein 7.7 Albumin 4.3 Globulin 3.4 Albumin/Globulin Ratio 1.3 Lipase 47 PD Medical Decision Making - ED course Complexity details: reviewed results (he had labs done by nursing triage protcols that the chemistry, particularly the Sodium, is normal. White count is normal. Considered but felt unneeded would be imaging such as ct/MRI. ), considered differential (he has distinct positional vertigo with head movment that stops when resting/not moving. Has also had tinnitus left ear for same couple of days. No focal deficits otherwise nor trouble speaking. no ataxia. Seems clinically confident to be peripheral vertigo. ), d/w patient Departure - Departure Disposition: 01 Home, Self Care Clinical Impression: Peripheral vertigo Qualifiers: Laterality: unspecified laterality Qualified Code(s): H81.399 - Other peripheral vertigo, unspecified ear Tinnitus Qualifiers: Laterality: left Qualified Code(s): H93.12 - Tinnitus, left ear Condition: Stable Record reviewed to determine appropriate education?: Yes Instructions: ED Vertigo Unspecified Follow-Up: Lucho Stovall MD [Primary Care Provider] - [facility] [Provider Group] Prescriptions: Meclizine HCl [Motion Sickness] 25 mg PO Q6H PRN #30 tablet PRN Reason: Vertigo Cetirizine [ZyrTEC] 10 mg PO BID #40 tablet Comments: Your symptoms sound consistent with peripheral vertigo which is a improper response or inflammation of the inner ear ear that controls balance. Associated with the ringing in the ears, this would tend to localize it to the ear structures (middle and inner). Sometimes this is fluid buildup or inflammation. Sometimes it is the nerve that conducts these impulses being irritated. I would suggest cetirizine antihistamine as directed. Add meclizine every 4-6 hours if needed for vertigo as well. Continue your other usual medicines. Follow-up with hearing therapist. I provided the name of 1 up in [place]. I sent your prescriptions to [facility] in [place]. Change positions slowly and try to avoid quick bending turning and sitting up. Discharge Date/Time: 11/29/22 16:03
[2022-11-29 15:01] VITALS: BP 155/76
[2022-11-29] MEDS ORDERED: MECLIZINE 12.5 MG TABLET PO STA (15:45)
[2022-11-29] MEDS ORDERED: CETIRIZINE 10 MG TABLET PO STA (15:45)
== END 2022-11-29 16:03 | disposition home or self-care (01) ==
LOC: ED 13:20
DX: H81.399 Other peripheral vertigo, unspecified ear (principal); H93.12 Tinnitus, left ear; Z87.891 Personal history of nicotine dependence
CPT/HCPCS: 36415; 80053; 83690; 84484; 85025; 93005; 99284; A9270

== ENCOUNTER 2023-03-06 07:55 | Outpatient (CLI) | payer MEDICARE ==
[2023-03-06 08:08] LABS: BASOPHILS # (AUTO) 0.1 10^3/uL (0.0-0.1); BASOPHILS % (AUTO) 0.8 %; EOSINOPHILS # (AUTO) 0.2 10^3/uL (0.0-0.7); EOSINOPHILS % (AUTO) 2.8 %; HCT - HEMATOCRIT 35.8 % (42.0-52.0); HGB - HEMOGLOBIN 11.9 g/dL (14.0-18.0); LYMPHOCYTES # (AUTO) 1.1 10^3/uL (1.5-3.5); MEAN CORPUSCULAR HGB CONC 33.2 g/dL (32.0-36.0); MEAN CORPUSCULAR VOLUME 87.3 fL (80.0-94.0); MEAN PLATELET VOLUME 8.5 fL (7.4-11.4); MONOCYTES # (AUTO) 0.6 10^3/uL (0.0-1.0); MONOCYTES % (AUTO) 7.8 %; NEUTROPHILS # (AUTO) 5.4 10^3/uL (1.5-6.6); NEUTROPHILS % (AUTO) 73.1 %; PLT - PLATELET COUNT 457 10^3/uL (130-450); RED CELL DISTRIBUTION WIDTH 12.8 % (12.0-15.0); WHITE BLOOD COUNT 7.4 x10^3/uL (4.8-10.8)
[2023-03-06 08:44] LABS: ALBUMIN 2.8 g/dL (3.2-5.5); ALBUMIN/GLOBULIN RATIO 0.6 (1.0-2.2); BILIRUBIN,TOTAL 0.7 mg/dL (0.2-1.0); CALCIUM 8.9 mg/dL (8.5-10.3); CREATININE 1.2 mg/dL (0.6-1.2); CRP - C-REACTIVE PROTEIN 14.9 mg/dL (0-1.0); POTASSIUM 3.7 mmol/L (3.5-5.0); TOTAL PROTEIN 7.6 g/dL (6.7-8.2)
[2023-03-06 12:19] LABS: ESTIMATED AVERAGE GLUCOSE 266 mg/dL (70-100); HEMOGLOBIN A1c% 10.9 % (4.27-6.07)
== END 2023-03-06 07:56 | disposition home or self-care (01) ==
LOC: LAB 07:55
PROVIDERS: ATTEND Orthopaedic Surgery Foot and Ankle Surgery
DX: Z01.812 Encounter for preprocedural laboratory examination (principal); M86.172 Other acute osteomyelitis, left ankle and foot; M14.672 Charcot's joint, left ankle and foot; R73.9 Hyperglycemia, unspecified
CPT/HCPCS: 36415; 80053; 83036; 85025; 85651; 86140

== ENCOUNTER 2023-03-20 08:00 | Outpatient (CLI) | payer MEDICARE ==
[2023-03-20 16:44] LABS: BASOPHILS # (AUTO) 0.1 10^3/uL (0.0-0.1); BASOPHILS % (AUTO) 0.9 %; EOSINOPHILS # (AUTO) 0.3 10^3/uL (0.0-0.7); EOSINOPHILS % (AUTO) 3.7 %; HCT - HEMATOCRIT 29.5 % (42.0-52.0); HGB - HEMOGLOBIN 9.6 g/dL (14.0-18.0); LYMPHOCYTES # (AUTO) 0.8 10^3/uL (1.5-3.5); LYMPHOCYTES % (AUTO) 9.2 %; MEAN CORPUSCULAR HEMOGLOBIN 28.6 pg (27.0-31.0); MEAN CORPUSCULAR HGB CONC 32.5 g/dL (32.0-36.0); MEAN CORPUSCULAR VOLUME 87.8 fL (80.0-94.0); MONOCYTES # (AUTO) 0.4 10^3/uL (0.0-1.0); MONOCYTES % (AUTO) 5.3 %; NEUTROPHILS # (AUTO) 6.6 10^3/uL (1.5-6.6); NEUTROPHILS % (AUTO) 80.3 %; PLT - PLATELET COUNT 414 10^3/uL (130-450); RED BLOOD COUNT 3.36 10^6/uL (4.70-6.10); RED CELL DISTRIBUTION WIDTH 13.3 % (12.0-15.0); WHITE BLOOD COUNT 8.2 x10^3/uL (4.8-10.8)
[2023-03-20 17:13] LABS: ALBUMIN 2.4 g/dL (3.2-5.5); ALBUMIN/GLOBULIN RATIO 0.6 (1.0-2.2); BILIRUBIN,TOTAL 0.5 mg/dL (0.2-1.0); CALCIUM 8.5 mg/dL (8.5-10.3); CREATININE 1.4 mg/dL (0.6-1.2); CRP - C-REACTIVE PROTEIN 5.5 mg/dL (0-1.0); POTASSIUM 4.6 mmol/L (3.5-5.0); TOTAL PROTEIN 6.1 g/dL (6.7-8.2)
== END 2023-03-20 23:59 | disposition home or self-care (01) ==
LOC: LAB.R 08:00
PROVIDERS: ATTEND Internal Medicine Infectious Disease
DX: M86.172 Other acute osteomyelitis, left ankle and foot (principal)
CPT/HCPCS: 80053; 85025; 86140

== ENCOUNTER 2023-04-04 12:47 | Day surgery (SDC) | payer MEDICARE ==
[2023-04-04] MEDS ORDERED: SODIUM CHLORIDE 0.9% 10 ML VIAL IVP ONE (13:53)
--- NOTE | 2023-04-04 14:24 | ANESTHESIA PROCEDURE NOTE ---
Anesth Central Line Template - Central Line Central Line Preparation: Consent Obtained, Time out completed, Ultrasound used, Sterile prep and drape Central line location: Right Basilic Central line type: PICC Single Lumen Central line catheter tip site resides: Superior vena cava (SVC) (Cavoatrial junction using Teleflex VPS) Central line aftercare: Secured, Placement confirmed, No complications, Bundle checklist complete, Pt tolerated well Other Info/Details: Right arm prepped with chlorohexadine x2. Full sterile gown, gloves, mask and drape utilized. Right basilic vein identified under US and accessed with 20 needle. Wire advanced with ease and peel away sheath inserted over wire. Wire removed. A 4Fr single lumen PICC trimmed to 44 cm inserted with tip tracker showing tip towards heart. Placement confirmed with p-wave analysis (see printout on anesthesia record). 1 cm left exposed. Line aspirates heme and flushes with ease. Line secured with stat lock and opsite. Patient tolerated well. OK to use PICC.
== END 2023-04-04 12:48 | disposition home or self-care (01) ==
LOC: SDS 12:47
PROVIDERS: ATTEND Nurse Anesthetist, Certified Registered
DX: E11.621 Type 2 diabetes mellitus with foot ulcer (principal); L97.523 Non-pressure chronic ulcer of other part of left foot with necrosis of muscle; M21.962 Unspecified acquired deformity of left lower leg
CPT/HCPCS: 36569; C1751

== ENCOUNTER 2023-04-07 08:00 | Outpatient (CLI) | payer MEDICARE ==
[2023-04-07 17:55] LABS: BASOPHILS # (AUTO) 0.1 10^3/uL (0.0-0.1); BASOPHILS % (AUTO) 1.6 %; EOSINOPHILS # (AUTO) 0.2 10^3/uL (0.0-0.7); EOSINOPHILS % (AUTO) 3.8 %; HCT - HEMATOCRIT 37.8 % (42.0-52.0); HGB - HEMOGLOBIN 12.5 g/dL (14.0-18.0); LYMPHOCYTES # (AUTO) 0.7 10^3/uL (1.5-3.5); LYMPHOCYTES % (AUTO) 13.9 %; MEAN CORPUSCULAR HEMOGLOBIN 29.1 pg (27.0-31.0); MEAN CORPUSCULAR HGB CONC 33.1 g/dL (32.0-36.0); MEAN CORPUSCULAR VOLUME 87.9 fL (80.0-94.0); MEAN PLATELET VOLUME 10.3 fL (7.4-11.4); MONOCYTES # (AUTO) 0.4 10^3/uL (0.0-1.0); MONOCYTES % (AUTO) 7.7 %; NEUTROPHILS # (AUTO) 3.7 10^3/uL (1.5-6.6); NEUTROPHILS % (AUTO) 72.4 %; PLT - PLATELET COUNT 223 10^3/uL (130-450); WHITE BLOOD COUNT 5.1 x10^3/uL (4.8-10.8)
[2023-04-07 18:05] LABS: ALBUMIN 3.6 g/dL (3.2-5.5); ALBUMIN/GLOBULIN RATIO 1.2 (1.0-2.2); BILIRUBIN,TOTAL 0.6 mg/dL (0.2-1.0); CREATININE 1.2 mg/dL (0.6-1.3); CRP - C-REACTIVE PROTEIN 0.5 mg/dL (<0.5); POTASSIUM 4.5 mmol/L (3.5-4.5); TOTAL PROTEIN 6.6 g/dL (6.4-8.9)
== END 2023-04-07 23:59 | disposition home or self-care (01) ==
LOC: LAB.R 08:00
PROVIDERS: ATTEND Internal Medicine Infectious Disease
DX: M86.172 Other acute osteomyelitis, left ankle and foot (principal)
CPT/HCPCS: 80053; 85025; 86140

== ENCOUNTER 2023-04-29 12:35 | Outpatient (CLI) | payer MEDICARE ==
[2023-04-29 21:36] LABS: ESTIMATED AVERAGE GLUCOSE 235 mg/dL (70-100); HEMOGLOBIN A1c% 9.8 % (4.27-6.07)
== END 2023-04-29 12:36 | disposition home or self-care (01) ==
LOC: LAB 12:35
PROVIDERS: ATTEND Orthopaedic Surgery Foot and Ankle Surgery
DX: I10 Essential (primary) hypertension (principal); E11.9 Type 2 diabetes mellitus without complications; M86.172 Other acute osteomyelitis, left ankle and foot; M14.672 Charcot's joint, left ankle and foot
CPT/HCPCS: 36415; 83036; 85651; 86140; 93005

== ENCOUNTER 2023-11-26 07:45 | Outpatient (CLI) | payer MEDICARE ==
[2023-11-26 08:17] LABS: ALBUMIN 4.2 g/dL (3.2-5.5); ALBUMIN/GLOBULIN RATIO 1.6 (1.0-2.2); ALKALINE PHOSPHATASE 117 IU/L (42-121); ALT ALANINE AMINOTRANSFERASE 25 IU/L (10-60); AST ASPARTATE AMINOTRANSFERASE 28 IU/L (10-42); BILIRUBIN,TOTAL 0.7 mg/dL (0.2-1.0); BUN - BLOOD UREA NITROGEN 28 mg/dL (6-20); CALCIUM 9.5 mg/dL (8.5-10.3); CARBON DIOXIDE - CO2 30 mmol/L (21-32); CHLORIDE 103 mmol/L (101-111); CHOL/HDL RATIO 4.4 (<5.0); CHOLESTEROL 209 mg/dL; CREATININE 1.5 mg/dL (0.6-1.3); GFR - MDRD 47 (>89); GLUCOSE 147 mg/dL (74-104); HDL CHOLESTEROL 48 mg/dL; LDL CHOLESTEROL,CALCULATED 132 mg/dL; LDL/HDL RATIO 2.8 (<3.6); POTASSIUM 4.2 mmol/L (3.5-4.5); SODIUM 140 mmol/L (135-145); TOTAL PROTEIN 6.8 g/dL (6.4-8.9); TRIGLYCERIDES 145 mg/dL (48-352); VLDL CHOLESTEROL 29 mg/dL
[2023-11-26 11:26] LABS: ESTIMATED AVERAGE GLUCOSE 295 mg/dL (70-100); HEMOGLOBIN A1c% 11.9 % (4.27-6.07)
== END 2023-11-26 07:46 | disposition home or self-care (01) ==
LOC: LAB 07:45
PROVIDERS: ATTEND Internal Medicine
DX: E11.42 Type 2 diabetes mellitus with diabetic polyneuropathy (principal); E78.5 Hyperlipidemia, unspecified; Z12.5 Encounter for screening for malignant neoplasm of prostate
CPT/HCPCS: 36415; 80053; 80061; 83036; G0103; 83721; 84153

== ENCOUNTER 2024-01-31 17:51 | Emergency (ER) | payer MEDICARE ==
--- NOTE | 2024-01-31 18:17 | ED Physician Documentation ---
History of Present Illness - Stated complaint Stated Complaint: PASS OUT/HEAD INJ - Chief complaint Chief Complaint: Trauma Hd/Nk - History obtained from History obtained from: Patient - History of Present Illness Pain level max: 4 Pain level now: 3 - Additonal information Additional information: Patient is a 63-year-old male who presents to the emergency department stating that he had been feeling dizzy for the past few days, this is not uncommon for him. Today he states that he got up and went to go let his dog out when he passed out and struck his head on an object causing an abrasion to the forehead and bridge of the nose. No chest pain. No palpitations. He is unsure how long he passed out for. He states that he has some mild neck pain when he raises his chin to the ceiling. No numbness or tingling. No abdominal pain. No loss of bowel or bladder control. He is ambulatory into the emergency department today. Tetanus shot up-to-date. PD PAST MEDICAL HISTORY - Past Medical History Past Medical History: Yes Cardiovascular: Hypertension, High cholesterol Respiratory: None Neuro: Peripheral neuropathy Endocrine/Autoimmune: Type 2 diabetes GI: Hiatal hernia : Renal insuffiency HEENT: Chronic vision loss Psych: None Musculoskeletal: None Derm: None - Past Surgical History Past Surgical History: Yes General: Colonoscopy Ortho: Other HEENT: Cataracts, Detached retina repair - Present Medications Home Medications: Ambulatory Orders Medication Instructions Recorded Confirmed Aspirin [Ecotrin] 81 mg PO DAILY 01/05/15 03/20/23 Insulin Glargine [Lantus] 65 units SUBQ BID 11/24/16 03/20/23 Insulin Aspart (Vial) [NovoLOG 20 unit SUBQ TID 08/13/18 03/20/23 (VIAL FOR ED USE)] Losartan Potassium 50 mg PO DAILY 08/13/18 03/20/23 Pioglitazone [Actos] 15 mg PO DAILY 10/12/20 03/20/23 amLODIPine [Norvasc] 5 mg PO DAILY 10/12/20 03/20/23 DULoxetine [Cymbalta] 20 mg PO DAILY 03/20/23 03/20/23 Metoprolol Succinate [Toprol Xl] 25 mg PO ONCE 03/20/23 03/20/23 Piperacillin Sodium/Tazobactam 4.5 gm IV Q8HR PRN 03/20/23 03/20/23 [Piperacil-Tazobact 13.5 gm Vl] - Allergies Allergies/Adverse Reactions: Allergies Allergy/AdvReac Type Severity Reaction Status Date / Time No Known Drug Allergies Allergy Verified 01/31/24 17:55 - Social History Does the pt smoke?: No Smoking Status: Never smoker Does the pt drink ETOH?: No Does the pt have substance abuse?: No - Immunizations Immunizations are current?: Yes - POLST Patient has POLST: No PD ED PE NORMAL - Vitals Vital signs reviewed: Yes - General General: Alert and oriented X 3, No acute distress - HEENT HEENT: PERRL, Pharynx benign, Dentition benign, Other (Dry lips and tongue, abrasion to the forehead and bridge of the nose. Tenderness over the bridge of the nose. No scalp hematomas or palpable skull fractures) - Neck Neck: Supple, no meningeal sign, No bony TTP - Cardiac Cardiac: RRR, Strong equal pulses - Respiratory Respiratory: No respiratory distress, Clear bilaterally - Abdomen Abdomen: Soft, Non tender, Non distended - Derm Derm: Warm and dry - Extremities Extremities: No edema, No calf tenderness / cord - Neuro Neuro: Alert and oriented X 3 - Psych Psych: Normal mood, Normal affect Results - Vitals Vitals: Vital Signs - 24 hr 01/31/24 01/31/24 01/31/24 17:55 18:14 18:30 Temperature 36.8 C Heart Rate 98 82 72 Heart Rate [ Sitting] Heart Rate [ Standing] Heart Rate [ Supine] Respiratory 18 19 16 Rate Blood Pressure 107/63 112/69 112/69 Blood Pressure [Sitting] Blood Pressure [Standing] Blood Pressure [Supine] O2 Saturation 98 97 97 01/31/24 01/31/24 01/31/24 18:43 19:00 19:30 Temperature Heart Rate 72 67 Heart Rate [ 83 Sitting] Heart Rate [ 94 Standing] Heart Rate [ 75 Supine] Respiratory 15 16 Rate Blood Pressure 116/57 L 137/63 H Blood Pressure 104/61 [Sitting] Blood Pressure 82/49 L [Standing] Blood Pressure 128/76 [Supine] O2 Saturation 97 99 01/31/24 01/31/24 20:00 20:30 Temperature Heart Rate 71 64 Heart Rate [ Sitting] Heart Rate [ Standing] Heart Rate [ Supine] Respiratory 16 17 Rate Blood Pressure 135/68 H 139/67 H Blood Pressure [Sitting] Blood Pressure [Standing] Blood Pressure [Supine] O2 Saturation 100 99 Oxygen O2 Source Room air - EKG (time done) 1804 EKG releavant findings:: EKG personally interpreted by author of this note. Relevant findings are: Rate: Rate (enter#) (84) Rhythm: NSR [place]: Normal Intervals: Normal LA QRS: Normal Ischemia: Normal ST segments - Labs Labs: Laboratory Tests 01/31/24 01/31/24 01/31/24 18:09 18:15 18:15 WBC 9.0 RBC 5.57 Hgb 16.7 Hct 48.1 MCV 86.4 MCH 30.0 MCHC 34.7 RDW 13.2 Plt Count 251 MPV 10.3 Neut # (Auto) 6.5 Lymph # (Auto) 1.3 L [place] # (Auto) 0.9 Eos # (Auto) 0.2 Baso # (Auto) 0.1 Absolute Nucleated RBC 0.00 Nucleated RBC % 0.0 Sodium 132 L Potassium 4.2 Chloride 95 L Carbon Dioxide 24 Anion Gap 13.0 BUN 29 H Creatinine 1.8 H Estimated GFR (MDRD) 38 L Glucose 442 H POC Whole Bld Glucose 389 H Calcium 10.4 H Total Bilirubin 0.6 AST 28 ALT 33 Alkaline Phosphatase 205 H Troponin I High Sens 5.6 Total Protein 7.3 Albumin 4.3 Globulin 3.0 Albumin/Globulin Ratio 1.4 Lipase 378 H Ethyl Alcohol 01/31/24 18:15 WBC RBC Hgb Hct MCV MCH MCHC RDW Plt Count MPV Neut # (Auto) Lymph # (Auto) Park # (Auto) Eos # (Auto) Baso # (Auto) Absolute Nucleated RBC Nucleated RBC % Sodium Potassium Chloride Carbon Dioxide Anion Gap BUN Creatinine Estimated GFR (MDRD) Glucose POC Whole Bld Glucose Calcium Total Bilirubin AST ALT Alkaline Phosphatase Troponin I High Sens Total Protein Albumin Globulin Albumin/Globulin Ratio Lipase Ethyl Alcohol < 10.0 - Rads (name of study) head Ct Relevant Findings:: Final report received, See rad report maxillofacial CT Relevant Findings:: Final report received, See rad report c-spine CT Relevant Findings:: Final report received, See rad report PD Medical Decision Making - ED course Complexity details: reviewed results, re-evaluated patient, considered differential, d/w patient, d/w family ED course: Patient with nasal bone fractures on CT scan maxillofacial. No other acute findings on head CT or cervical spine CT. Has abrasions to the face that were cleansed and bandaged. Tetanus up-to-date. Blood sugar is elevated, given several liters of IV fluid. Feels much better. Initially was positive for orthostatic hypotension. After IV fluids this is no longer the case. Suspect dehydration secondary to his chronic hyperglycemia. Recommend that he follow-up with his doctor closely for further help with his glucose control. Not in DKA. Tolerating p.o. without difficulty. Ambulating without difficulty. No evidence of cardiac arrhythmia. No acute findings on telemetry. Patient counseled regarding signs and symptoms for which I believe and urgent re- evaluation would be necessary. Patient with good understanding of and agreement to plan and is comfortable going home at this time This document was made in part using voice recognition software. While efforts are made to proofread this document, sound alike and grammatical errors may occur. Departure - Departure Disposition: 01 Home, Self Care Clinical Impression: Dehydration, Hyperglycemia, Orthostatic hypotension Nasal bone fractures Qualifiers: Encounter type: initial encounter Fracture type: closed Qualified Code(s): S02.2XXA - Fracture of nasal bones, initial encounter for closed fracture Facial abrasion Qualifiers: Encounter type: initial encounter Qualified Code(s): S00.81XA - Abrasion of other part of head, initial encounter Syncope Qualifiers: Syncope type: unspecified Qualified Code(s): R55 - Syncope and collapse Condition: Good Instructions: ED Fx Nasal Conf W X Ray, ED Head Injury Closed, ED Hypotension Orthostatic Follow-Up: Lucho Stovall MD [Primary Care Provider] - Within 1 week Comments: Make sure you are drinking plenty of fluids. You need to work closely with your primary care provider to help get your blood sugars down to a manageable level, this will help to prevent any dehydration. Please follow-up with your doctor for further care. Please return if you worsen. The nasal bone fractures typically do not need any further follow-up, but can be managed by your doctor as well. Forms: PCP List Discharge Date/Time: 01/31/24 21:06
[2024-01-31 18:20] LABS: BASOPHILS # (AUTO) 0.1 10^3/uL (0.0-0.1); EOSINOPHILS # (AUTO) 0.2 10^3/uL (0.0-0.7); EOSINOPHILS % (AUTO) 2.3 %; HCT - HEMATOCRIT 48.1 % (42.0-52.0); HGB - HEMOGLOBIN 16.7 g/dL (14.0-18.0); LYMPHOCYTES # (AUTO) 1.3 10^3/uL (1.5-3.5); LYMPHOCYTES % (AUTO) 14.4 %; MEAN CORPUSCULAR HGB CONC 34.7 g/dL (32.0-36.0); MEAN CORPUSCULAR VOLUME 86.4 fL (80.0-94.0); MEAN PLATELET VOLUME 10.3 fL (7.4-11.4); MONOCYTES # (AUTO) 0.9 10^3/uL (0.0-1.0); MONOCYTES % (AUTO) 9.4 %; NEUTROPHILS # (AUTO) 6.5 10^3/uL (1.5-6.6); NEUTROPHILS % (AUTO) 72.6 %; PLT - PLATELET COUNT 251 10^3/uL (130-450); RED BLOOD COUNT 5.57 10^6/uL (4.70-6.10); RED CELL DISTRIBUTION WIDTH 13.2 % (12.0-15.0)
--- NOTE | 2024-01-31 18:33 | XRAY Report ---
PROCEDURE: Chest 1V INDICATIONS: Chest Pain TECHNIQUE: One view of the chest was acquired. COMPARISON: None. FINDINGS: Surgical changes and devices: None. Lungs and pleura: No pleural effusions or pneumothorax. Lungs are clear. Mediastinum: Mediastinal contours appear normal. Heart size is normal. Bones and chest wall: No suspicious bony lesions. Overlying soft tissues appear unremarkable. IMPRESSION: No acute cardiopulmonary process. Reviewed by: Lucho Zepeda MD on 01/31/2024 5:31 PM AKDT Approved by: Lucho Zepeda MD on 01/31/2024 5:31 PM AKDT Station ID: [id number]
[2024-01-31 18:35] LABS: ALBUMIN 4.3 g/dL (3.2-5.5); ALBUMIN/GLOBULIN RATIO 1.4 (1.0-2.2); BILIRUBIN,TOTAL 0.6 mg/dL (0.2-1.0); CALCIUM 10.4 mg/dL (8.5-10.3); CREATININE 1.8 mg/dL (0.6-1.3); POTASSIUM 4.2 mmol/L (3.5-4.5); TOTAL PROTEIN 7.3 g/dL (6.4-8.9)
[2024-01-31 18:42] LABS: TROPONIN I HIGH SENSITIVITY 5.6 ng/L (2.3-19.7)
--- NOTE | 2024-01-31 18:54 | CT Report ---
PROCEDURE: Head WO INDICATIONS: syncope, head/neck/face pain TECHNIQUE: Noncontrast 4.5 mm thick angled axial sections acquired from the foramen magnum to the vertex. For r adiation dose reduction, the following was used: automated exposure control, adjustment of mA and/or kV according to patient size. COMPARISON: None. FINDINGS: Image quality: Excellent. CSF spaces: Basal cisterns are patent. No extra-axial fluid collections. Ventricles are normal in size and shape. Brain: Diffuse parenchymal volume loss with expansion of CSF containing spaces. No midline shift. No intracranial masses or hemorrhage. Moore-white matter interface is normal. Skull and face: Calvarium is intact. Minimally displaced nasal fractures. Sinuses: Visualized sinuses and mastoids are clear. IMPRESSION: No acute intracranial pathology. Minimally displaced nasal fractures. Reviewed by: Lucho Zepeda MD on 01/31/2024 5:53 PM AKSARAH Approved by: Lucho Zepeda MD on 01/31/2024 5:53 PM AKDT Station ID: [id number]
[2024-01-31] MEDS: SODIUM CHLORIDE 0.9% 1,000 ML IV STA ×3 (18:56→19:42)
--- NOTE | 2024-01-31 18:56 | CT Report ---
PROCEDURE: Maxillofacial WO INDICATIONS: syncope, head/neck/face pain TECHNIQUE: Noncontrast 1.5 mm thick axial images acquired from the mandible through the frontal sinuses, with co belkys and sagittal reformatting. For radiation dose reduction, the following was used: automated ex posure control, adjustment of mA and/or kV according to patient size. COMPARISON: CT head from same date FINDINGS: Image quality: Excellent. Bones and teeth: Minimally displaced nasal fractures. Orbital herrera are intact. Sinus herrera show no fracture or deformity. Visualized portions of the mandible demonstrate no fractures or subluxation . Zygomatic arches are intact. Pterygoid plates are intact. Visualized portions of the skull base and auditory canals are intact. Sinuses: Slight mucosal thickening in the anterior ethmoid sinuses. Mucous retention polyp within the right maxillary sinus. Paranasal sinuses are otherwise aerated, without fluid levels, mucosal thicke yasmani, or mucoceles. Mastoid air cells are aerated. Soft tissues: No edema, masses, or fluid collections. No enlarged lymph nodes. No soft tissue lace rations or debris. Vascular: Visualized vascular structures appear normal in the absence of contrast. Bony vascular fo ramina and canals are intact. IMPRESSION: Minimally displaced nasal fractures. Reviewed by: Lucho Zepeda MD on 01/31/2024 5:54 PM AKSARAH Approved by: Lucho Zepeda MD on 01/31/2024 5:54 PM AKSARAH Station ID: [id number]
--- NOTE | 2024-01-31 18:57 | CT Report ---
PROCEDURE: Cervical Spine WO INDICATIONS: syncope, head/neck/face pain TECHNIQUE: Noncontrast 3 mm thick sections acquired from the skull base to the T4 level. Sagittal and coronal r eformats were then constructed. For radiation dose reduction, the following was used: automated exp osure control, adjustment of mA and/or kV according to patient size. COMPARISON: None. FINDINGS: Image quality: Excellent. Bones: No fractures or dislocations. Visualized superior ribs are intact. Soft tissues: Prevertebral soft tissues are normal in thickness. No paravertebral hematomas. No ap ical pneumothoraces. IMPRESSION: No acute, displaced fracture or traumatic subluxation. Reviewed by: Lucho Zepeda MD on 01/31/2024 5:56 PM TWYLA Approved by: Lucho Zepeda MD on 01/31/2024 5:56 PM TWYLA Station ID: [id number]
[2024-01-31] MEDS: INSULIN REGULAR HUMAN 300 UNIT/3 ML VIAL SUBQ STA (19:38)
[2024-01-31 20:01] VITALS: O2SAT 99
[2024-01-31 21:08] VITALS: BP 139/67
== END 2024-01-31 21:06 | disposition home or self-care (01) ==
LOC: ED 17:51
DX: R55 Syncope and collapse (principal); S02.2XXA Fracture of nasal bones, initial encounter for closed fracture; S00.81XA Abrasion of other part of head, initial encounter; M54.2 Cervicalgia; I10 Essential (primary) hypertension; I49.3 Ventricular premature depolarization; E11.9 Type 2 diabetes mellitus without complications; E78.00 Pure hypercholesterolemia, unspecified; Z79.4 Long term (current) use of insulin; Z79.82 Long term (current) use of aspirin; W18.39XA Other fall on same level, initial encounter
CPT/HCPCS: 36415; 70450; 70486; 71045; 72125; 80053; 83690; 84484; 85025; 93005; 96360; 96361; 99284; G0480; J1815; 82077

== ENCOUNTER 2024-04-05 07:23 | Outpatient (CLI) | payer MEDICARE ==
[2024-04-05 07:37] LABS: BASOPHILS # (AUTO) 0.1 10^3/uL (0.0-0.1); BASOPHILS % (AUTO) 0.8 %; EOSINOPHILS # (AUTO) 0.2 10^3/uL (0.0-0.7); EOSINOPHILS % (AUTO) 2.4 %; HCT - HEMATOCRIT 51.1 % (42.0-52.0); HGB - HEMOGLOBIN 17.3 g/dL (14.0-18.0); LYMPHOCYTES # (AUTO) 1.6 10^3/uL (1.5-3.5); LYMPHOCYTES % (AUTO) 18.2 %; MEAN CORPUSCULAR HEMOGLOBIN 30.1 pg (27.0-31.0); MEAN CORPUSCULAR HGB CONC 33.9 g/dL (32.0-36.0); MEAN PLATELET VOLUME 9.8 fL (7.4-11.4); MONOCYTES # (AUTO) 0.7 10^3/uL (0.0-1.0); MONOCYTES % (AUTO) 7.9 %; NEUTROPHILS # (AUTO) 6.2 10^3/uL (1.5-6.6); NEUTROPHILS % (AUTO) 70.4 %; PLT - PLATELET COUNT 263 10^3/uL (130-450); RED BLOOD COUNT 5.74 10^6/uL (4.70-6.10); RED CELL DISTRIBUTION WIDTH 13.2 % (12.0-15.0); WHITE BLOOD COUNT 8.8 x10^3/uL (4.8-10.8)
[2024-04-05 08:01] LABS: ALBUMIN 4.2 g/dL (3.2-5.5); ALBUMIN/GLOBULIN RATIO 1.4 (1.0-2.2); ALKALINE PHOSPHATASE 133 IU/L (42-121); ALT ALANINE AMINOTRANSFERASE 41 IU/L (10-60); AST ASPARTATE AMINOTRANSFERASE 36 IU/L (10-42); BILIRUBIN,TOTAL 0.6 mg/dL (0.2-1.0); BUN - BLOOD UREA NITROGEN 23 mg/dL (6-20); CALCIUM 9.8 mg/dL (8.5-10.3); CARBON DIOXIDE - CO2 30 mmol/L (21-32); CHLORIDE 101 mmol/L (101-111); CHOL/HDL RATIO 5.2 (<5.0); CHOLESTEROL 196 mg/dL; CREATININE 1.4 mg/dL (0.6-1.3); GFR - MDRD 51 (>89); GLUCOSE 138 mg/dL (74-104); HDL CHOLESTEROL 38 mg/dL; LDL CHOLESTEROL,CALCULATED 127 mg/dL; LDL/HDL RATIO 3.3 (<3.6); SODIUM 138 mmol/L (135-145); TOTAL PROTEIN 7.1 g/dL (6.4-8.9); TRIGLYCERIDES 154 mg/dL; VLDL CHOLESTEROL 31 mg/dL
[2024-04-05 11:33] LABS: ESTIMATED AVERAGE GLUCOSE 283 mg/dL (70-100); HEMOGLOBIN A1c% 11.5 % (4.27-6.07)
== END 2024-04-05 07:24 | disposition home or self-care (01) ==
LOC: LAB 07:23
PROVIDERS: ATTEND Internal Medicine
DX: E11.42 Type 2 diabetes mellitus with diabetic polyneuropathy (principal); E78.5 Hyperlipidemia, unspecified; I10 Essential (primary) hypertension
CPT/HCPCS: 36415; 80053; 80061; 82043; 82570; 83036; 83721; 85025

== ENCOUNTER 2024-04-06 07:08 | Outpatient (CLI) | payer MEDICARE ==
[2024-04-06 07:28] LABS: CREATININE,URINE 74.9 mg/dL; MICROALBUMIN,URINE 35.2 mg/dL
== END 2024-04-06 07:09 | disposition home or self-care (01) ==
LOC: LAB 07:08
PROVIDERS: ATTEND Internal Medicine
DX: E11.42 Type 2 diabetes mellitus with diabetic polyneuropathy (principal)
CPT/HCPCS: 82043; 82570

== ENCOUNTER 2024-04-29 12:26 | Outpatient (CLI) | payer MEDICARE ==
--- NOTE | 2024-04-29 21:44 | XRAY Report ---
PROCEDURE: Foot 3+V LT INDICATIONS: EVAL OSTEOMYELITIS TECHNIQUE: 3 views of the foot were acquired. COMPARISON: Left foot radiographs 02/13/2016. FINDINGS: Bones: No acute erosion identified. Fifth digit resection. Fourth metatarsal resection. Screw fixatio n at the first TMT joint. Tibial/metatarsal intramedullary tobias with screw fixation. [place] at the lat eral talus. No hardware fracture. No fractures identified. No dislocation. Midfoot ankylosis. No amina picious bony lesions. Soft tissues: Wound suspected at the lateral foot. No tibiotalar joint effusion. Achilles tendon ap pears normal. IMPRESSION: No osseous erosion identified. Wound at the lateral foot. No hardware fracture. Reviewed by: Dashawn Flores MD on 04/29/2024 9:43 PM PDT Approved by: Dashawn Flores MD on 04/29/2024 9:43 PM PDT Station ID: [id number]
== END 2024-04-29 12:27 | disposition home or self-care (01) ==
LOC: DI 12:26
PROVIDERS: ATTEND Family Medicine
DX: E11.621 Type 2 diabetes mellitus with foot ulcer (principal); L08.9 Local infection of the skin and subcutaneous tissue, unspecified